=== PATIENT | male | born 1965 | race Caucasian/White ===

== ENCOUNTER 2023-08-23 06:14 | Inpatient (IN) | payer OTHER ==
[2023-08-23] MEDS ORDERED: PANTOPRAZOLE 40 MG/10 ML VIAL IVP STA (06:24)
[2023-08-23] MEDS ORDERED: droPERidol 5 MG/2 ML VIAL IVP ONE (06:24)
--- NOTE | 2023-08-23 06:26 | ED ---
Abdominal Pain HPI - General Source: patient, EMS, RN notes reviewed Mode of arrival: EMS Limitations: no limitations <Kevyn Doan - Last Filed: 08/23/23 06:25> <Pura Larkin - Last Filed: 09/04/23 00:38> - General Chief Complaint: Abdominal Pain Stated Complaint: Opiate detox Time Seen by Provider: 08/23/23 06:25 - History of Present Illness Initial Comments: 57-year-old male presents emergency Department chief complaint abdominal pain, nausea vomiting. Patient has been at [facility] for 3 days for opiate abuse. Patient states he was daily heroin user. Patient denies any alcohol abuse. Patient states she's been vomiting he states of recent that it seemed to change what looked to be bloody. He complains of epigastric discomfort. He denies any melanotic stools denies fevers or chills patient states he did get Zofran from EMS. (Kevyn Doan) 57-year-old male presents to the emergency department from [facility]. He has been there 3 days for heroin detox. He reports that he has had some abdominal pain throughout his stay there which has progressively gotten worse. He reports the pain is in his suprapubic region. States he has not had a bowel movement in 3 days. Normally goes daily. He started having some vomiting with some bloody flecks in it. He has been taking Motrin at the rehab facility. Denies history of ulcer. Denies alcohol use. He has never had any abdominal surgeries. Denies any fevers. Reports to some dysuria. He is not sexually active. Patient appears to be in significant pain upon my evaluation therefore the HPI is limited (Pura Larkin) - Related Data Home Medications Medication Instructions Recorded Confirmed Acetaminophen Tab [Tylenol] 650 mg PO QID PRN MDD 4 doses 08/23/23 08/23/23 Calcium/Mag/Zinc/D3 1 tab PO TID 08/23/23 08/23/23 Chlorpheniramine Maleate 4 mg PO Q4H PRN MDD 4 doses 08/23/23 08/23/23 [Chlor-Trimeton] Loperamide [Imodium] 2 - 4 mg PO QID PRN MDD 4 doses 08/23/23 08/23/23 Melatonin 5 mg PO HS 08/23/23 08/23/23 Multivitamins, Thera [Multivitamin 1 tab PO DAILY 08/23/23 08/23/23 (formulary)] Mylanta 30 ml PO Q4H PRN 08/23/23 08/23/23 Thiamine [Vitamin B-1] 100 mg PO DAILY PRN 08/23/23 08/23/23 Previous Rx's Medication Instructions Recorded Fluconazole [Diflucan] 200 mg PO DAILY #10 tablet 09/03/23 HYDROcodone/APAP 5-325MG [[place] 1 tab PO Q8HR PRN 2 Days #5 tab 09/03/23 5-325] Pantoprazole [Protonix] 40 mg PO DAILY #30 tab 09/03/23 amLODIPine [Norvasc] 5 mg PO DAILY #30 tab 09/03/23 cefUROXime axetiL [Ceftin] 500 mg PO BID 10 Days #20 tab 09/03/23 metroNIDAZOLE [Flagyl] 500 mg PO TID 10 Days #30 tab 09/03/23 Allergies Allergy/AdvReac Type Severity Reaction Status Date / Time Penicillins AdvReac Abdominal Verified 08/23/23 10:17 Pain Review of Systems ROS Other: All systems not noted in ROS Statement are negative. <Kevyn Doan - Last Filed: 08/23/23 06:25> ROS Other: All systems not noted in ROS Statement are negative. <Pura Larkin - Last Filed: 09/04/23 00:38> ROS Statement: Those systems with pertinent positive or pertinent negative responses have been documented in the HPI. Past Medical History Past Medical History: No Reported History History of Any Multi-Drug Resistant Organisms: None Reported Past Surgical History: Orthopedic Surgery Past Psychological History: No Psychological Hx Reported Smoking Status: Never smoker Past Alcohol Use History: Occasional Past Drug Use History: Heroin, Opiates <Kevyn Doan - Last Filed: 08/23/23 06:25> General Exam Limitations: no limitations General appearance: alert, in no apparent distress <Kevyn Doan - Last Filed: 08/23/23 06:25> General appearance: alert, in distress Head exam: Present: atraumatic, normocephalic, normal inspection Eye exam: Present: normal appearance, PERRL, EOMI. Absent: scleral icterus, conjunctival injection, periorbital swelling ENT exam: Present: normal exam, mucous membranes moist Neck exam: Present: normal inspection. Absent: tenderness, meningismus, lymphadenopathy Respiratory exam: Present: normal lung sounds bilaterally, other (Tachypneic). Absent: wheezes, rales, rhonchi, stridor Cardiovascular Exam: Present: regular rate, normal rhythm, normal heart sounds. Absent: systolic murmur, diastolic murmur, rubs, gallop, clicks GI/Abdominal exam: Present: tenderness (Generalized), guarding, normal bowel sounds. Absent: distended, rebound, rigid Extremities exam: Present: normal inspection, full ROM, normal capillary refill. Absent: tenderness, pedal edema, joint swelling, calf tenderness Back exam: Present: normal inspection Neurological exam: Present: alert, oriented X3, CN II-XII intact Psychiatric exam: Present: anxious Skin exam: Present: warm, dry, intact, normal color. Absent: rash <Pura Larkin - Last Filed: 09/04/23 00:38> - General Exam Comments Initial Comments: Visual Physical Exam Vital signs reviewed General: Well-appearing, nontoxic, no acute distress. Head: Normocephalic, atraumatic Eyes: PERRLA, EOMI ENT: Airway patent Chest: Nonlabored breathing Skin: No visual rash, normal skin tone Neuro: Alert and oriented 3 Musculoskeletal: No gross abnormalities (Kevyn Doan) Course Vital Signs 08/23/23 08/23/23 08/23/23 06:19 08:20 09:32 Temperature 97.8 F 98.8 F Pulse Rate 87 87 80 Respiratory 18 18 24 Rate Blood Pressure 144/88 174/77 178/108 O2 Sat by Pulse 100 99 99 Oximetry Medical Decision Making <Kevyn Doan - Last Filed: 08/23/23 06:25> - Lab Data Result diagrams: 09/03/23 07:14 09/03/23 07:14 <Pura Larkin - Last Filed: 09/04/23 00:38> - Medical Decision Making I performed a quick note portion of this chart signed Kevyn Archer PA-C) Was pt. sent in by a medical professional or institution (MIKAYLA Ruiz, WASHROOM OPERATOR, urgent care, hospital, or residential...) When possible be specific @ -[facility] Did you speak to anyone other than the patient for history (EMS, parent, family, police, friend...)? What history was obtained from this source @ -ems and [facility] paperwork Did you review nursing and triage notes (agree or disagree)? Why? @ -I reviewed and agree with nursing and triage notes Were old charts reviewed (outside hosp., previous admission, EMS record, old EKG, old radiological studies, urgent care reports/EKG's, residential records)? Report findings @ -No old charts were reviewed Differential Diagnosis (chest pain, altered mental status, abdominal pain women, abdominal pain men, vaginal bleeding, weakness, fever, dyspnea, syncope, headache, dizziness, GI bleed, back pain, seizure, CVA, palpatations, mental health, musculoskeletal)? @ -colitis, obstruction, pancreatitis, appendicitis, cholecystitis, bowel perforation, pud EKG interpreted by me (3pts min.). @ -none done X-rays interpreted by me (1pt min.). @ -None done CT interpreted by me (1pt min.). @ -yes and demonstrates free air U/S interpreted by me (1pt. min.). @ -None done What testing was considered but not performed or refused? (CT, X-rays, U/S, labs)? Why? @ -None What meds were considered but not given or refused? Why? @ -None Did you discuss the management of the patient with other professionals (professionals i.e. , PA, WASHROOM OPERATOR, lab, RT, psych nurse, licensed social worker, learning and development intern, teacher, department of natural resources officer, case monitor)? Give summary @ -Spoke with Dr. Panchal who will come to the emergency department to evaluate the patient Was smoking cessation discussed for >3mins.? @ -No Was critical care preformed (if so, how long)? @ -35 minutes Were there social determinants of health that impacted care today? How? (Homelessness, low income, unemployed, alcoholism, drug addiction, transportation, low edu. Level, literacy, decrease access to med. care, shelter, rehab)? @ -patient is at rehab Was there de-escalation of care discussed even if they declined (Discuss DNR or withdrawal of care, Hospice)? DNR status @ -No What co-morbidities impacted this encounter? (DM, HTN, Smoking, COPD, CAD, Cancer, CVA, ARF, Chemo, Hep., AIDS, mental health diagnosis, sleep apnea, mo rbid obesity)? @ -opiate abuse Was patient admitted / discharged? Hospital course, mention meds given and route, prescriptions, significant lab abnormalities, going to OR and other pertinent info. @ -Upon arrival patient did spend a portion of his time in the emergency department waiting room. Laboratory studies were obtained. He was given droperidol for pain. Patient is then placed in a room and I evaluate the patient. He does seem to be in a considerable amount pain and therefore 4 mg of morphine was ordered even though the patient has history of opiate abuse. He was also started on IV fluids. CT is performed which demonstrates free air. Patient reevaluated and had no relief with the morphine. I did give him 2 mg of Dilaudid. I called Dr. Panchal to inform him of the patient's findings. Patient will be taken to or at this time. He remains nothing by mouth. Patient taken to the OR with a guarded prognosis Undiagnosed new problem with uncertain prognosis? @ -yes Drug Therapy requiring intensive monitoring for toxicity (Heparin, Nitro, Insulin, Cardizem)? @ -No Were any procedures done? @ -No Diagnosis/symptom? @ -acute abd pain, acute pneumoperitoneum Acute, or Chronic, or Acute on Chronic? @ -acute Uncomplicated (without systemic symptoms) or Complicated (systemic symptoms)? @ -complicated Side effects of treatment? @ -No Exacerbation, Progression, or Severe Exacerbation? @ -No Poses a threat to life or bodily function? How? (Chest pain, [place], ND, pneumonia, PE, COPD, DKA, ARF, appy, cholecystitis, CVA, Diverticulitis, Homicidal, Suicidal, threat to staff... and all critical care pts) @ -yes, patient requires immediate surgery (Pura Larkin) - Lab Data Lab Results 08/23/23 08/23/23 08/23/23 Range/Units 06:42 06:42 06:42 WBC 18.4 H (3.8-10.6) k/uL RBC 5.14 (4.30-5.90) m/uL Hgb 15.6 (13.0-17.5) gm/dL Hct 46.3 (39.0-53.0) % MCV 90.1 (80.0-100.0) fL MCH 30.3 (25.0-35.0) pg MCHC 33.7 (31.0-37.0) g/dL RDW 13.5 (11.5-15.5) % Plt Count 289 (150-450) k/uL MPV 7.7 Neutrophils % 84 % Lymphocytes % 10 % Monocytes % 5 % Eosinophils % 1 % Basophils % 0 % Neutrophils # 15.5 H (1.3-7.7) k/uL Lymphocytes # 1.8 (1.0-4.8) k/uL Monocytes # 0.9 (0-1.0) k/uL Eosinophils # 0.2 (0-0.7) k/uL Basophils # 0.0 (0-0.2) k/uL PT 13.6 H (10.0-12.5) sec INR 1.3 H (<1.2) APTT 19.4 L (22.0-30.0) sec Sodium 133 L (137-145) mmol/L Potassium 3.8 (3.5-5.1) mmol/L Chloride 94 L (98-107) mmol/L Carbon Dioxide 18 L (22-30) mmol/L Anion Gap 21 mmol/L BUN 21 H (9-20) mg/dL Creatinine 0.96 (0.66-1.25) mg/dL Est GFR (CKD-EPI)AfAm >90 (>60 ml/min/1.73 sqM) Est GFR (CKD-EPI)NonAf 88 (>60 ml/min/1.73 sqM) Glucose 195 H (74-99) mg/dL Lactic Ac Sepsis Rflx Plasma Lactic Acid Eitan (0.7-2.0) mmol/L Calcium 9.5 (8.4-10.2) mg/dL Total Bilirubin 1.2 (0.2-1.3) mg/dL AST 39 (17-59) U/L ALT 40 (4-49) U/L Alkaline Phosphatase 60 (38-126) U/L Total Protein 7.6 (6.3-8.2) g/dL Albumin 4.6 (3.5-5.0) g/dL Lipase 56 (23-300) U/L Urine Color Urine Appearance (Clear) Urine pH (5.0-8.0) Ur Specific [place] (1.001-1.035) Urine Protein (Negative) Urine Glucose (UA) (Negative) Urine Ketones (Negative) Urine Blood (Negative) Urine Nitrite (Negative) Urine Bilirubin (Negative) Urine Urobilinogen (<2.0) mg/dL Ur Leukocyte Esterase (Negative) Urine RBC (0-5) /hpf Urine WBC (0-5) /hpf Ur Squamous Epith Cells (0-4) /hpf Urine Mucus (None) /hpf 08/23/23 08/23/23 08/23/23 Range/Units 06:42 07:22 08:33 WBC (3.8-10.6) k/uL RBC (4.30-5.90) m/uL Hgb (13.0-17.5) gm/dL Hct (39.0-53.0) % MCV (80.0-100.0) fL MCH (25.0-35.0) pg MCHC (31.0-37.0) g/dL RDW (11.5-15.5) % Plt Count (150-450) k/uL MPV Neutrophils % % Lymphocytes % % Monocytes % % Eosinophils % % Basophils % % Neutrophils # (1.3-7.7) k/uL Lymphocytes # (1.0-4.8) k/uL Monocytes # (0-1.0) k/uL Eosinophils # (0-0.7) k/uL Basophils # (0-0.2) k/uL PT (10.0-12.5) sec INR (<1.2) APTT (22.0-30.0) sec Sodium (137-145) mmol/L Potassium (3.5-5.1) mmol/L Chloride (98-107) mmol/L Carbon Dioxide (22-30) mmol/L Anion Gap mmol/L BUN (9-20) mg/dL Creatinine (0.66-1.25) mg/dL Est GFR (CKD-EPI)AfAm (>60 ml/min/1.73 sqM) Est GFR (CKD-EPI)NonAf (>60 ml/min/1.73 sqM) Glucose (74-99) mg/dL Lactic Ac Sepsis Rflx Y Plasma Lactic Acid Eitan 3.9 H* (0.7-2.0) mmol/L Calcium (8.4-10.2) mg/dL Total Bilirubin (0.2-1.3) mg/dL AST (17-59) U/L ALT (4-49) U/L Alkaline Phosphatase (38-126) U/L Total Protein (6.3-8.2) g/dL Albumin (3.5-5.0) g/dL Lipase (23-300) U/L Urine Color Yellow Urine Appearance Clear (Clear) Urine pH 6.0 (5.0-8.0) Ur Specific [place] 1.040 H (1.001-1.035) Urine Protein 3+ H (Negative) Urine Glucose (UA) Trace H (Negative) Urine Ketones 3+ H (Negative) Urine Blood Moderate H (Negative) Urine Nitrite Negative (Negative) Urine Bilirubin 1+ H (Negative) Urine Urobilinogen <2.0 (<2.0) mg/dL Ur Leukocyte Esterase Negative (Negative) Urine RBC 1 (0-5) /hpf Urine WBC 3 (0-5) /hpf Ur Squamous Epith Cells <1 (0-4) /hpf Urine Mucus Moderate H (None) /hpf Disposition <Kevyn Doan - Last Filed: 08/23/23 06:25> Is patient prescribed a controlled substance at d/c from ED?: No Time of Disposition: :31 Decision to Admit Reason: Admit from EC Decision Date: 08/23/23 Decision Time: 09: <Pura Larkin - Last Filed: 09/04/23 00:38> Clinical Impression: Abdominal pain, Pneumoperitoneum, Leukocytosis, Lactic acidosis Disposition: ADMITTED IP TO THIS HOSP Condition: Stable
[2023-08-23 07:02] LABS: Basophils % (A) 0 %; Eosinophils # (A) 0.2 k/uL (0-0.7); Eosinophils % (A) 1 %; HCT 46.3 % (39.0-53.0); HGB 15.6 gm/dL (13.0-17.5); Lymphocytes # (A) 1.8 k/uL (1.0-4.8); Lymphocytes % (A) 10 %; MCH 30.3 pg (25.0-35.0); MCHC 33.7 g/dL (31.0-37.0); MCV 90.1 fL (80.0-100.0); Mean Platelet Volume 7.7; Monocytes # (A) 0.9 k/uL (0-1.0); Monocytes % (A) 5 %; Neutrophils # (A) 15.5 k/uL (1.3-7.7); Neutrophils % (A) 84 %; Platelet Count 289 k/uL (150-450); RBC 5.14 m/uL (4.30-5.90); RDW 13.5 % (11.5-15.5); WBC 18.4 k/uL (3.8-10.6)
[2023-08-23 07:21] LABS: African American GFR (CKD) >90 (>60 ml/min/1.73 sqM); Albumin 4.6 g/dL (3.5-5.0); Anion Gap 21 mmol/L; Blood Urea Nitrogen 21 mg/dL (9-20); Calcium 9.5 mg/dL (8.4-10.2); Carbon Dioxide 18 mmol/L (22-30); Chloride 94 mmol/L (98-107); Glucose 195 mg/dL (74-99); Lipase 56 U/L (23-300); Non-African American GFR(CKD) 88 (>60 ml/min/1.73 sqM); Sodium 133 mmol/L (137-145); Total Bilirubin 1.2 mg/dL (0.2-1.3); Total Protein 7.6 g/dL (6.3-8.2)
[2023-08-23 07:26] LABS: ALT 40 U/L (4-49)
[2023-08-23 07:29] LABS: AST 39 U/L (17-59); Alkaline Phosphatase 60 U/L (38-126); Potassium 3.8 mmol/L (3.5-5.1)
[2023-08-23 07:37] LABS: INR 1.3 (<1.2); Prothrombin Time 13.6 sec (10.0-12.5)
[2023-08-23 07:46] LABS: Partial Thromboplastin Time 19.4 sec (22.0-30.0)
[2023-08-23] MEDS ORDERED: SODIUM CHLORIDE 0.9% 1,000 ML IV ONE ×2 (07:52→10:13)
[2023-08-23] MEDS ORDERED: SODIUM CHLORIDE 0.9% 500 ML 500 ML IV ONE ×2 (07:52→23:15)
[2023-08-23] MEDS ORDERED: MORPHINE SULFATE 4 MG/ML SYRINGE IVP STA (08:18)
[2023-08-23 09:10] LABS: Appearance,Urine Clear (Clear); Bilirubin,Urine 1+ (Negative); Blood,Urine Moderate (Negative); Color,Urine Yellow; Glucose,Urine (UA) Trace (Negative); Ketones,Urine 3+ (Negative); Leukocyte Esterase,Urine Negative (Negative); Mucus,Urine Moderate /hpf; Nitrite,Urine Negative (Negative); Protein,Urine 3+ (Negative); RBC,Urine 1 /hpf (0-5); Squamous Epithelial Cell,Urine <1 /hpf (0-4); Urobilinogen,Urine <2.0 mg/dL (<2.0); WBC,Urine 3 /hpf (0-5)
[2023-08-23] MEDS ORDERED: LEVOFLOXACIN 750MG-D5W PMX 750 MG in DEXTROSE/WATER 1 150ML.BAG IVPB STA (09:15)
[2023-08-23] MEDS ORDERED: metroNIDAZOLE-NS PMX 500 MG in SALINE 1 100ML.BAG IVPB STA (09:16)
[2023-08-23] MEDS ORDERED: HYDROmorphone 1 MG/ML 1 ML SYRINGE IVP STA ×2 (09:16→10:12)
--- NOTE | 2023-08-23 09:16 | CT ---
EXAMINATION TYPE: CT abdomen pelvis w con CT DLP: 963.1 mGycm, Automated exposure control for dose reduction was used. DATE OF EXAM: 08/23/2023 8:58 AM COMPARISON: None CLINICAL INDICATION:Male, 57 years old with history of pain; Abdominal pain , nausea and vomiting TECHNIQUE: Standard CT of the abdomen and pelvis following the administration of 100 cc of Isovue 3 00 IV contrast material. Coronal and sagittal reformats were performed. FINDINGS: LOWER CHEST: Unremarkable ABDOMEN LIVER: Unremarkable GALLBLADDER AND BILE DUCTS: Unremarkable. PANCREAS: Unremarkable. SPLEEN: Unremarkable. ADRENAL GLANDS: Unremarkable. KIDNEYS AND URETERS: No evidence of hydronephrosis or renal calculus. The kidneys enhance symmetrical ly. Right inferior pole 1.7 cm cyst. Contrast is demonstrated within both collecting systems on the d elayed phase. PELVIS BLADDER: Incompletely distended but grossly unremarkable. REPRODUCTIVE: Coarse calcifications of the prostate gland are identified. ABDOMEN & PELVIS STOMACH AND BOWEL: The appendix is within normal limits.Circumferential wall thickening identified in volving the duodenum and proximal small bowel within the left abdomen. No evidence of bowel obstructi on. PERITONEUM/retroperitoneum: Free air is identified primarily within the retroperitoneum. Small amount of free fluid throughout the abdomen and pelvis. VASCULATURE: No evidence of aortic aneurysm. Pelvic phleboliths. MUSCULOSKELETAL: No acute osseous abnormalities LYMPH NODES: No gross evidence for lymphadenopathy. SOFT TISSUE/ABDOMINAL WALL: Tiny fat filled umbilical hernia. IMPRESSION: 1. Pneumoretroperitoneum with suspected gastric or duodenal perforation. 2. Inflammatory changes identified involving the duodenum and proximal small bowel. 3. Small amount of ascites identified throughout abdomen and pelvis. Findings called to and discussed with Dr. Larkin at 9:13 AM on 08/23/2023.
[2023-08-23] MEDS ORDERED: NALOXONE 0.4 MG/ML 1 ML VIAL IV PRN (09:31)
[2023-08-23] MEDS ORDERED: ONDANSETRON 4 MG/2 ML VIAL IVP PRN (09:31)
[2023-08-23] MEDS: SODIUM CHLORIDE 0.9% 1,000 ML IV ONE ×2 (09:34→10:17)
--- NOTE | 2023-08-23 10:24 | P.GSHP ---
History of Present Illness H&P Date: 08/23/23 CHIEF COMPLAINT: Abdominal pain HISTORY OF PRESENT ILLNESS: This is a 57-year-old male who presented to the hospital with complaints of abdominal pain with nausea and vomiting that started yesterday. Patient reports taking Motrin daily for his back and foot pain. He denies any prior history of stomach ulcers. His emesis had been containing some flecks of blood. She denies being on any blood thinners. Denies any alcohol use. Denies any cardiac history. Patient has been at [facility] for heroin abuse for the past 3 days. The last time he used heroin was on Wednesday. Denies any prior abdominal surgeries. Computed tomography scan abdomen and pelvis had reported pneumoperitoneum with suspected gastric or duodenal perforation. Patient has been admitted to surgical service. Patient's BP has been elevated. PAST MEDICAL HISTORY: No reported history PAST SURGICAL HISTORY: Orthopedic surgery MEDICATIONS: See below ALLERGIES: See below SOCIAL HISTORY: Heroin abuse REVIEW OF SYSTEMS: CONSTITUTIONAL: Denies fever or chills. HEENT: Denies blurred vision, vision changes, or eye pain. Denies hemoptysis CARDIOVASCULAR: Denies chest pain or pressure. RESPIRATORY: No shortness of breath. GASTROINTESTINAL: See HPI for pertinent findings HEMATOLOGIC: Denies bleeding disorders. GENITOURINARY: Denies any blood in urine or increased urinary frequency. SKIN: Denies pruitis. Denies rash. PHYSICAL EXAM: VITAL SIGNS: Reviewed GENERAL: Well-developed in no acute distress. ABDOMEN: Soft. Nondistended. Painful palpation of suprapubic area. Guarding noted NEUROLOGIC: Alert and oriented. Cranial nerves II through XII grossly intact. LABORATORY DATA: WBC 18.4 Hgb 15.6 platelets 289 INR 1.3 Sodium 133 potassium 3.3 creatinine 0.96 Lactic acid is elevated at 3.9 LFTs normal lipase 56 IMAGING: Computed tomography scan abdomen and pelvis reports pneumoperitoneum with suspected gastric or duodenal perforation. Inflammatory changes identified involving the duodenum and proximal small bowel. Small amount of ascites identified throughout abdomen and pelvis. ASSESSMENT: 1. Pneumoperitoneum with suspected gastric or duodenal perforation noted on computed tomography scan 2. Abdominal pain 3. History of heroin abuse PLAN: -Patient scheduled for exploratory laparotomy today with Dr. alex -Keep patient nothing by mouth -Continue pain management -Continue IV fluids -Continue PPI twice a day -Continue antibiotics Physician Optical Glass Wet Inspector note has been reviewed by physician. Signing provider agrees with the documented findings, assessment, and plan of care. Past Medical History Past Medical History: No Reported History History of Any Multi-Drug Resistant Organisms: None Reported Past Surgical History: Orthopedic Surgery Past Psychological History: No Psychological Hx Reported Smoking Status: Never smoker Past Alcohol Use History: Occasional Past Drug Use History: Heroin, Opiates Medications and Allergies Allergies Allergy/AdvReac Type Severity Reaction Status Date / Time Penicillins AdvReac Abdominal Verified 08/23/23 10:17 Pain Surgical - Exam Vital Signs Temp Pulse Resp BP Pulse Ox 97.8 F 87 18 144/88 100 08/23/23 06:19 08/23/23 06:19 08/23/23 06:19 08/23/23 06:19 08/23/23 06:19 Results - Labs 08/23/23 06:42 08/23/23 06:42 Abnormal Lab Results - Last 24 Hours (Table) 08/23/23 08/23/23 08/23/23 Range/Units 06:42 06:42 06:42 WBC 18.4 H (3.8-10.6) k/uL Neutrophils # 15.5 H (1.3-7.7) k/uL PT 13.6 H (10.0-12.5) sec INR 1.3 H (<1.2) APTT 19.4 L (22.0-30.0) sec Sodium 133 L (137-145) mmol/L Chloride 94 L (98-107) mmol/L Carbon Dioxide 18 L (22-30) mmol/L BUN 21 H (9-20) mg/dL Glucose 195 H (74-99) mg/dL Plasma Lactic Acid Eitan (0.7-2.0) mmol/L Ur Specific [place] (1.001-1.035) Urine Protein (Negative) Urine Glucose (UA) (Negative) Urine Ketones (Negative) Urine Blood (Negative) Urine Bilirubin (Negative) Urine Mucus (None) /hpf 08/23/23 08/23/23 Range/Units 06:42 08:33 WBC (3.8-10.6) k/uL Neutrophils # (1.3-7.7) k/uL PT (10.0-12.5) sec INR (<1.2) APTT (22.0-30.0) sec Sodium (137-145) mmol/L Chloride (98-107) mmol/L Carbon Dioxide (22-30) mmol/L BUN (9-20) mg/dL Glucose (74-99) mg/dL Plasma Lactic Acid Eitan 3.9 H* (0.7-2.0) mmol/L Ur Specific [place] 1.040 H (1.001-1.035) Urine Protein 3+ H (Negative) Urine Glucose (UA) Trace H (Negative) Urine Ketones 3+ H (Negative) Urine Blood Moderate H (Negative) Urine Bilirubin 1+ H (Negative) Urine Mucus Moderate H (None) /hpf Diabetes panel 08/23/23 Range/Units 06:42 Sodium 133 L (137-145) mmol/L Potassium 3.8 (3.5-5.1) mmol/L Chloride 94 L (98-107) mmol/L Carbon Dioxide 18 L (22-30) mmol/L BUN 21 H (9-20) mg/dL Creatinine 0.96 (0.66-1.25) mg/dL Glucose 195 H (74-99) mg/dL Calcium 9.5 (8.4-10.2) mg/dL AST 39 (17-59) U/L ALT 40 (4-49) U/L Alkaline Phosphatase 60 (38-126) U/L Total Protein 7.6 (6.3-8.2) g/dL Albumin 4.6 (3.5-5.0) g/dL Calcium panel 08/23/23 Range/Units 06:42 Calcium 9.5 (8.4-10.2) mg/dL Albumin 4.6 (3.5-5.0) g/dL Pituitary panel 08/23/23 Range/Units 06:42 Sodium 133 L (137-145) mmol/L Potassium 3.8 (3.5-5.1) mmol/L Chloride 94 L (98-107) mmol/L Carbon Dioxide 18 L (22-30) mmol/L BUN 21 H (9-20) mg/dL Creatinine 0.96 (0.66-1.25) mg/dL Glucose 195 H (74-99) mg/dL Calcium 9.5 (8.4-10.2) mg/dL Adrenal panel 08/23/23 Range/Units 06:42 Sodium 133 L (137-145) mmol/L Potassium 3.8 (3.5-5.1) mmol/L Chloride 94 L (98-107) mmol/L Carbon Dioxide 18 L (22-30) mmol/L BUN 21 H (9-20) mg/dL Creatinine 0.96 (0.66-1.25) mg/dL Glucose 195 H (74-99) mg/dL Calcium 9.5 (8.4-10.2) mg/dL Total Bilirubin 1.2 (0.2-1.3) mg/dL AST 39 (17-59) U/L ALT 40 (4-49) U/L Alkaline Phosphatase 60 (38-126) U/L Total Protein 7.6 (6.3-8.2) g/dL Albumin 4.6 (3.5-5.0) g/dL
[2023-08-23] MEDS ORDERED: IV FLUID CONTINUATION 800 ML IV ONE (10:28)
[2023-08-23] MEDS ORDERED: fentaNYL (PF) 50 MCG/ML 2 ML AMP IVP ONE ×2 (10:36→11:04)
[2023-08-23] MEDS ORDERED: LACTATED RINGERS 1,000 ML IV ONE ×2 (11:06→12:52)
[2023-08-23] MEDS ORDERED: ESMOLOL 100 MG/10 ML VIAL ONE (11:30)
[2023-08-23] MEDS ORDERED: PROPOFOL 10 MG/ML 20 ML VIAL IV ONE (11:30)
[2023-08-23] MEDS ORDERED: fentaNYL (PF) 50 MCG/ML 2 ML AMP ONE (11:30)
[2023-08-23] MEDS ORDERED: LIDOCAINE 1% INJ 10MG/ML (20 ML MDV) ONE (11:30)
[2023-08-23] MEDS ORDERED: MIDAZOLAM 2 MG/2 ML VIAL ONE (11:30)
[2023-08-23] MEDS ORDERED: SUCCINYLCHOLINE CHLORIDE 200 MG/10 ML VIAL IV ONE (11:30)
[2023-08-23] MEDS ORDERED: ROCURONIUM 10 MG/ML (5 ML VIAL) IV ONE (11:30)
[2023-08-23] MEDS ORDERED: HYDROmorphone (PF) 1 MG/ML ONE (11:30)
--- NOTE | 2023-08-23 12:58 | P.OP ---
Date of Procedure: 08/23/23 Preoperative Diagnosis: Perforated viscus Postoperative Diagnosis: Perforated duodenal ulcer in the third portion of the duodenum with extensive right retroperitoneal inflammatory changes Procedure(s) Performed: Exploratory laparotomy Repair of duodenal ulcer with modified Jesús patch Anesthesia: LAURA Surgeon: Ventura Panchal Estimated Blood Loss (ml): 50 Pathology: none sent Condition: stable Disposition: ICU Description of Procedure: Patient's placed on the operating table in the supine position. He received general endotracheal tube anesthesia. His abdomen was prepped and draped in usual sterile fashion. The abdomen was entered through midline incision. Electrocautery was used to divide the abdominal wall. The peritoneal cavity was entered. There is a small amount of bilious fluid in the peritoneal cavity. The Bookwalter traction placed a wound. The abscess explored. There was a significant inflammatory response and bile staining along the right retroperitoneum. The bile staining was seen on the 11th of the cecum. The right colon was mobilized and then the duodenum was mobilized by using a [place] maneuver. The ulcer could be seen in the third portion of the duodenum. The ulcer opening was approximately 1.5 cm. The ulcer was repaired using a modified Jesús patch. The ulcer repair was performed using 3-0 GI silk suture. After the ulcer was closed. A piece of omentum was placed over top of the repair. The abdomen then irrigated with 4 L of normal saline. A GIOVANNA drain was placed along the right retroperitoneum this was brought out through a stab incision in the right upper quadrant. The fascia then closed loop #1 PDS suture. Skin was closed jesica.Prevena wound system was placed over top of the close skin. The patient was sent to the ICU intubated.
[2023-08-23 13:20] LABS: Glucose,Whole Blood 127 mg/dL (70-110)
[2023-08-23] MEDS: SODIUM CHLORIDE 0.9% 1,000 ML IV SCH ×3 (13:24→19:59)
[2023-08-23] MEDS: FLUCONAZOLE IN NACL,ISO-OSM 400 MG in SALINE 1 200ML.BAG IVPB SCH (13:28)
--- NOTE | 2023-08-23 13:53 | XR ---
EXAMINATION TYPE: XR chest 1V portable DATE OF EXAM: 08/23/2023 COMPARISON: NONE HISTORY: ET tube placement TECHNIQUE: Single frontal view of the chest is obtained. FINDINGS: There is no focal air space opacity, pleural effusion, or pneumothorax seen. The cardiac silhouette size is within normal limits. The osseous structures are intact. ET tube is approximatel y 5 cm above amber. NG tube is seen with the tip at the level of the gastric fundus. I cannot exclud e a small amount of pneumomediastinum. IMPRESSION: 1. ET tube 5 cm above amber. There is air seen in the upper mediastinum and overlying soft tissues o f the neck correlate for pneumomediastinum.
[2023-08-23 13:56] LABS: ABG Base Excess -5.3 mmol/L; ABG HCO3 21 mmol/L (21-25); ABG Oxygen Saturation 99.7 % (94-97); ABG PCO2 40 mmHg (35-45); ABG PH 7.32 (7.35-7.45); ABG PO2 >400 mmHg (83-108); ABG TCO2 22 mmol/L (19-24)
[2023-08-23] MEDS: fentaNYL (PF). 1,000 MCG in SODIUM CHLORIDE 0.9% 80 ML IV SCH ×2 (14:07→17:52)
[2023-08-23] MEDS: HYDROmorphone 1 MG/ML 1 ML SYRINGE IVP PRN ×3 (14:33→21:40)
[2023-08-23] MEDS: metroNIDAZOLE-NS PMX 500 MG in SALINE 1 100ML.BAG IVPB SCH ×2 (15:38→23:43)
--- NOTE | 2023-08-23 17:28 | P.CNPUL ---
History of Present Illness Consult date: 08/23/23 Requesting physician: Ventura Panchal Reason for consult: other (Ventilator/critical care management) Chief complaint: Abdominal pain, nausea, vomiting History of present illness: This is a 57-year-old male patient with a known history of daily heroin use who was in rehab for 3 days at [place] when he developed abdominal pain nausea and vomiting early this morning. He was having suprapubic pain and had not had any bowel movements. He noted some flecks of blood in his emesis. No previous history of ulcer. He had been taken Motrin. Denied any alcohol use. Computed tomography scan of the abdomen and pelvis did reveal pneumonia retroperitoneum with suspected gastric or duodenal perforation. Inflammatory changes identified involving the duodenum and proximal small bowel. Small amount of ascites identified through the abdomen and pelvis. He was taken urgently to the operating room and was found to have a perforated duodenal ulcer in the third portion of the duodenum with extensive right retroperitoneal inflammatory changes. He had repair of duodenal ulcer with modified Jesús patch. He was left intubated on mechanical ventilator and transferred to the intensive care u [facility] where he is seen today in consultation. Current ventilator settings are assist-control mode at a rate of 18, tidal volume 500, FiO2 40% and a PEEP of 5. He is sedated with propofol at 50 mcg/kg/m. Currently requiring fentanyl 1.5 mcg/kg per hour. He is also receiving Dilaudid intermittently. He's been initiated on Levaquin and Flagyl. He has normal saline running at 130 ML's per hour. Arterial blood gases on 100% FiO2 revealed a pO2 greater than 400, pCO2 of 40 and a pH of 7.32. White count 18.4. Hemoglobin 15.6. Platelets 289. Sodium 133. Potassium 3.8. Bicarb 18. BUN 21. Creatinine 0.96. Lactic acid 3.9. AST 39. ALT 40. Chest x-ray revealed endotracheal tube 5 cm above the amber. There is air seen in the upper mediastinum and overlying soft tissues of the neck correlate for pneumomediastinum. Review of Systems ROS unobtainable: due to endotracheal tube Past Medical History Past Medical History: No Reported History History of Any Multi-Drug Resistant Organisms: None Reported Past Surgical History: Orthopedic Surgery Past Psychological History: No Psychological Hx Reported Smoking Status: Never smoker Past Alcohol Use History: Occasional Past Drug Use History: Heroin, Opiates Medications and Allergies Home Medications Medication Instructions Recorded Confirmed Type Acetaminophen Tab [Tylenol] 650 mg PO QID PRN MDD 4 doses 08/23/23 08/23/23 History Calcium/Mag/Zinc/D3 1 tab PO TID 08/23/23 08/23/23 History Chlorpheniramine Maleate 4 mg PO Q4H PRN MDD 4 doses 08/23/23 08/23/23 History [Chlor-Trimeton] Ibuprofen [Motrin Ib] 600 mg PO Q6H PRN 08/23/23 08/23/23 History Loperamide [Imodium] 2 - 4 mg PO QID PRN MDD 4 doses 08/23/23 08/23/23 History Melatonin 5 mg PO HS 08/23/23 08/23/23 History Multivitamins, Thera [Multivitamin 1 tab PO DAILY 08/23/23 08/23/23 History (formulary)] Mylanta 30 ml PO Q4H PRN 08/23/23 08/23/23 History Thiamine [Vitamin B-1] 100 mg PO DAILY PRN 08/23/23 08/23/23 History cloNIDine HCL [Catapres] 0.1 - 0.3 mg PO Q4HR PRN 08/23/23 08/23/23 History cloNIDine HCL [Catapres] 0.1 mg PO Q4H PRN 08/23/23 08/23/23 History Allergies Allergy/AdvReac Type Severity Reaction Status Date / Time Penicillins AdvReac Abdominal Verified 08/23/23 10:17 Pain Physical Exam Vitals: Vital Signs Temp Pulse Pulse Resp BP BP BP 08/23/23 16:30 93 23 122/95 08/23/23 16:00 98.5 F 89 24 123/92 08/23/23 15:46 08/23/23 15:30 92 25 H 125/94 08/23/23 15:28 08/23/23 15:00 96 26 H 128/93 08/23/23 14:45 98 28 H 152/113 08/23/23 14:30 105 H 22 159/115 08/23/23 14:15 105 H 22 165/123 08/23/23 14:00 104 H 26 H 172/120 08/23/23 13:58 08/23/23 13:57 08/23/23 13:45 101 H 18 173/118 08/23/23 13:30 100 14 132/89 08/23/23 13:23 08/23/23 13:19 78 26 H 08/23/23 13:11 08/23/23 11:11 83 22 181/95 08/23/23 10:28 98.9 F 77 24 178/106 08/23/23 10:22 79 28 H 180/87 08/23/23 09:32 80 24 178/108 08/23/23 08:20 98.8 F 87 18 174/77 08/23/23 06:19 97.8 F 87 18 144/88 Pulse Ox FiO2 08/23/23 16:30 99 08/23/23 16:00 98 40 08/23/23 15:46 100 08/23/23 15:30 99 08/23/23 15:28 40 08/23/23 15:00 99 08/23/23 14:45 98 08/23/23 14:30 98 08/23/23 14:15 98 08/23/23 14:00 99 40 08/23/23 13:58 100 08/23/23 13:57 40 08/23/23 13:45 100 08/23/23 13:30 97 08/23/23 13:23 100 08/23/23 13:19 08/23/23 13:11 100 08/23/23 11:11 98 08/23/23 10:28 97 08/23/23 10:22 96 08/23/23 09:32 99 08/23/23 08:20 99 08/23/23 06:19 100 Intake and Output 08/23/23 08/23/23 08/23/23 06:59 14:59 22:59 Intake Total 2727.008 379.581 Output Total 570 235 Balance 2157.008 144.581 Intake: IV 2710 260 Sodium Chloride 0.9% 1, 260 260 000 ml @ 130 mls/hr IV . Q7H42M [facility] Rx#:[id number] Intake, IV Titration 17.008 119.581 Amount fentaNYL (PF). 1,000 mcg 7.222 38.514 In Sodium Chloride 0.9% 80 ml @ 0.5 MCG/KG/HR 4. 659 mls/hr IV .[id number] [facility] Rx#:[id number] propofoL 1,000 mg In 9.786 81.067 Empty Bag 1 bag @ 15 MCG/ KG/MIN 8.386 mls/hr IV . [id number] [facility] Rx#:[id number] Output: Drainage 140 170 Right Medial Abdomen 140 170 Urine 380 65 Estimated Blood Loss 50 Other: Voiding Method Indwelling Catheter Indwelling Catheter Weight 92.986 kg 93.18 kg GENERAL EXAM: Intubated, sedated 57-year-old male patient, comfortable in no apparent distress. HEAD: Normocephalic. EYES: Normal reaction of pupils, equal size. NOSE: Clear with pink turbinates. THROAT: No erythema or exudates. NECK: No masses, no JVD. CHEST: No chest wall deformity. LUNGS: Equal air entry with no crackles, wheeze, rhonchi or dullness. CVS: S1 and S2 normal with no audible murmur, regular rhythm. ABDOMEN: Abdominal Prevena wound VAC in place. GIOVANNA drain in place. SPINE: No scoliosis or deformity SKIN: No rashes CENTRAL NERVOUS SYSTEM: Sedated, tone is normal in all 4 extremities. EXTREMITIES: There is no peripheral edema. No clubbing, no cyanosis. Peripheral pulses are intact. Results - Laboratory Findings CBC and BMP: 08/23/23 06:42 08/23/23 06:42 ABG ABG pH 7.32 (7.35-7.45) L 08/23/23 13:54 ABG pCO2 40 mmHg (35-45) 08/23/23 13:54 ABG pO2 >400 mmHg (83-108) H 08/23/23 13:54 ABG O2 Saturation 99.7 % (94-97) H 08/23/23 13:54 PT/INR, D-dimer PT 13.6 sec (10.0-12.5) H 08/23/23 06:42 INR 1.3 (<1.2) H 08/23/23 06:42 Abnormal lab findings: Abnormal Labs 08/23/23 08/23/23 08/23/23 06:42 06:42 06:42 WBC 18.4 H Neutrophils # 15.5 H PT 13.6 H INR 1.3 H APTT 19.4 L ABG pH ABG pO2 ABG O2 Saturation Sodium 133 L Chloride 94 L Carbon Dioxide 18 L BUN 21 H Glucose 195 H POC Glucose (mg/dL) Plasma Lactic Acid [place] Ur Specific [place] Urine Protein Urine Glucose (UA) Urine Ketones Urine Blood Urine Bilirubin Urine Mucus 08/23/23 08/23/23 08/23/23 06:42 08:33 13:17 WBC Neutrophils # PT INR APTT ABG pH ABG pO2 ABG O2 Saturation Sodium Chloride Carbon Dioxide BUN Glucose POC Glucose (mg/dL) 127 H Plasma Lactic Acid [place] 3.9 H* Ur Specific [place] 1.040 H Urine Protein 3+ H Urine Glucose (UA) Trace H Urine Ketones 3+ H Urine Blood Moderate H Urine Bilirubin 1+ H Urine Mucus Moderate H 08/23/23 13:54 WBC Neutrophils # PT INR APTT ABG pH 7.32 L ABG pO2 >400 H ABG O2 Saturation 99.7 H Sodium Chloride Carbon Dioxide BUN Glucose POC Glucose (mg/dL) Plasma Lactic Acid [place] Ur Specific [place] Urine Protein Urine Glucose (UA) Urine Ketones Urine Blood Urine Bilirubin Urine Mucus - Diagnostic Findings Chest x-ray: image reviewed Assessment and Plan Assessment: Acute abdominal pain secondary to perforated duodenal ulcer in the third portion of duodenum with extensive right retroperitoneal inflammatory changes. Status post exploratory laparotomy with repair of duodenal ulcer with modified Jesús patch. Postoperative day #0 Acute hypoxic respiratory failure secondary to above, currently recovering on the mechanical ventilator, expected Daily heroin abuse, currently residing at [facility] History of opioid abuse Plan: Patient was seen and evaluated Chest x-ray, ABGs, labs and medications reviewed Continue Flagyl and Levaquin Titrate the sedation as tolerated Plan for possible extubation in the a.m. We will continue to follow and make further recommendations based on his clinical status I have personally seen and examined the patient, performed the documentation and the assessment and plan as written. Number of minutes spent on the visit: 20.
[2023-08-23] MEDS: PANTOPRAZOLE 40 MG/10 ML VIAL IVP SCH (19:59)
[2023-08-23] MEDS: CHLORHEXIDINE GLUCONATE 15 ML CUP MUCOUS MEM SCH (19:59)
[2023-08-23 23:54] LABS: Glucose,Whole Blood 93 mg/dL (70-110)
[2023-08-24] MEDS: HYDROmorphone 1 MG/ML 1 ML SYRINGE IVP PRN ×3 (00:20→18:37)
[2023-08-24] MEDS: fentaNYL (PF). 1,000 MCG in SODIUM CHLORIDE 0.9% 80 ML IV SCH ×2 (01:13→08:11)
--- NOTE | 2023-08-24 01:25 | XR ---
EXAM: XR Chest, 1 View CLINICAL HISTORY: ITS.REASON XR Reason: Tube placement TECHNIQUE: Frontal view of the chest. COMPARISON: No relevant prior studies available. IMPRESSION: Feeding tube in good position
[2023-08-24 04:13] LABS: African American GFR (CKD) 68 (>60 ml/min/1.73 sqM); Anion Gap 5 mmol/L; Blood Urea Nitrogen 27 mg/dL (9-20); Calcium 7.1 mg/dL (8.4-10.2); Carbon Dioxide 18 mmol/L (22-30); Chloride 108 mmol/L (98-107); Glucose 107 mg/dL (74-99); Non-African American GFR(CKD) 59 (>60 ml/min/1.73 sqM); Potassium 4.2 mmol/L (3.5-5.1); Sodium 131 mmol/L (137-145)
[2023-08-24 05:08] LABS: HCT 46.7 % (39.0-53.0); HGB 15.1 gm/dL (13.0-17.5); MCH 29.8 pg (25.0-35.0); MCHC 32.5 g/dL (31.0-37.0); MCV 91.7 fL (80.0-100.0); Mean Platelet Volume 8.6; Platelet Count 164 k/uL (150-450); RBC 5.09 m/uL (4.30-5.90); RDW 14.1 % (11.5-15.5); WBC 6.7 k/uL (3.8-10.6)
[2023-08-24 05:45] LABS: ABG Base Excess -5.2 mmol/L; ABG HCO3 20 mmol/L (21-25); ABG Oxygen Saturation 98.8 % (94-97); ABG PCO2 33 mmHg (35-45); ABG PH 7.39 (7.35-7.45); ABG PO2 147 mmHg (83-108); ABG TCO2 21 mmol/L (19-24); Allen Test Performed? Yes
[2023-08-24 06:20] LABS: Glucose,Whole Blood 98 mg/dL (70-110)
[2023-08-24 07:01] LABS: Band Neutrophils % 18 %; Lymphocytes # (M) 1.94 k/uL (1.0-4.8); Monocytes # (M) 0.27 k/uL (0-1.0); Neutrophils % (M) 51 %; Nucleated Red Blood Cells 0 /100 WBC (0-0); Total Cells Counted 200
[2023-08-24 07:04] LABS: Anisocytosis (M) Present
[2023-08-24 07:05] LABS: Poikilocytosis (M) Present
[2023-08-24] MEDS: PANTOPRAZOLE 40 MG/10 ML VIAL IVP SCH ×2 (08:21→20:59)
[2023-08-24] MEDS: metroNIDAZOLE-NS PMX 500 MG in SALINE 1 100ML.BAG IVPB SCH ×2 (08:26→15:59)
[2023-08-24] MEDS: SODIUM CHLORIDE 0.9% 1,000 ML IV SCH ×3 (08:30→23:15)
[2023-08-24] MEDS: CHLORHEXIDINE GLUCONATE 15 ML CUP MUCOUS MEM SCH (08:32)
[2023-08-24] MEDS ORDERED: SODIUM CHLORIDE 0.9% 500 ML 500 ML IV ONE (08:43)
[2023-08-24] MEDS: FLUCONAZOLE IN NACL,ISO-OSM 400 MG in SALINE 1 200ML.BAG IVPB SCH (09:32)
[2023-08-24] MEDS: LEVOFLOXACIN 500MG-D5W PMX 500 MG in DEXTROSE/WATER 1 100ML.BAG IVPB SCH (10:59)
--- NOTE | 2023-08-24 11:24 | P.PN ---
Subjective Progress Note Date: 08/24/23 Principal diagnosis: Acute abdominal pain secondary to perforated duodenal ulcer in the third portion of duodenum with extensive right retroperitoneal inflammatory changes. Status post exploratory laparotomy with repair of duodenal ulcer with modified Jesús patch. Postoperative day #1 This is a 57-year-old male patient with a known history of daily heroin use who was in rehab for 3 days at [place] when he developed abdominal pain nausea and vomiting early this morning. He was having suprapubic pain and had not had any bowel movements. He noted some flecks of blood in his emesis. No previous history of ulcer. He had been taken Motrin. Denied any alcohol use. Computed tomography scan of the abdomen and pelvis did reveal pneumonia retroperitoneum with suspected gastric or duodenal perforation. Inflammatory changes identified involving the duodenum and proximal small bowel. Small amount of ascites identified through the abdomen and pelvis. He was taken urgently to the operating room and was found to have a perforated duodenal ulcer in the third po rtion of the duodenum with extensive right retroperitoneal inflammatory changes. He had repair of duodenal ulcer with modified Jesús patch. He was left intubated on mechanical ventilator and transferred to the intensive care unit where he is seen today in consultation. Current ventilator settings are assist- control mode at a rate of 18, tidal volume 500, FiO2 40% and a PEEP of 5. He is sedated with propofol at 50 mcg/kg/m. Currently requiring fentanyl 1.5 mcg/kg per hour. He is also receiving Dilaudid intermittently. He's been initiated on Levaquin and Flagyl. He has normal saline running at 130 ML's per hour. Arterial blood gases on 100% FiO2 revealed a pO2 greater than 400, pCO2 of 40 and a pH of 7.32. White count 18.4. Hemoglobin 15.6. Platelets 289. Sodium 133. Potassium 3.8. Bicarb 18. BUN 21. Creatinine 0.96. Lactic acid 3.9. AST 39. ALT 40. Chest x-ray revealed endotracheal tube 5 cm above the amber. There is air seen in the upper mediastinum and overlying soft tissues of the neck correlate for pneumomediastinum. Patient was reevaluated today on 08/24/2023 patient remains intubated and mechanically ventilated. He is on assist control rate of 18 tidal volume 500 FiO2 40% PEEP of 5 ABG showed a pO2 of 147 pCO2 33 pH of 7.39. Patient is on IV fluid 0.9 normal saline at 13 0 mL per hour propofol at 30 mcg/kg/m and fentanyl 1.5 mcg/kg per hour. Patient is not requiring pressors at this point, he was hypotensive yesterday, received over 3 L of fluid boluses, urine output seems to be improving, and hemodynamically the patient didn't improve. We will give the patient more fluid boluses this morning to improve his urine output otherwise may have to challenge with a diuretic. Chest x-ray today was reviewed, seems to be unremarkable. Labs were all reviewed WBC 6.7 hemoglobin 15.1 sodium is 131 potassium 4.2, BUN is 27 creatinine 1.34. Objective - Vital Signs Vital signs: Vital Signs Temp 99.3 F 08/24/23 08:00 Pulse 74 08/24/23 11:00 Resp 16 08/24/23 11:00 BP 146/86 08/24/23 11:00 Pulse Ox 98 08/24/23 11:00 FiO2 40 08/24/23 08:52 Intake & Output 08/23/23 08/24/23 08/24/23 18:59 06:59 18:59 Intake Total 3303.445 2538.831 1754.129 Output Total 805 975 240 Balance 2498.445 8248.582 1413.129 Weight 93.18 kg 97.8 kg Intake: IV 3100 2160 1550 Fluconazole in NaCl,Iso- 200 Osm 400 mg In Saline 1 200ml.bag @ 100 mls/hr IVPB DAILY [facility] Rx#: [id number] Levofloxacin 500Mg-D5w 100 Pmx 500 mg In Dextrose/ Water 1 100ml.bag @ 100 mls/hr IVPB Q24H [facility] Rx#: [id number] Sodium Chloride 0.9% 1, 650 1560 650 000 ml @ 130 mls/hr IV . Q7H42M [facility] Rx#:[id number] Sodium Chloride 0.9% 500 500 ml 500 ml @ 999 mls/hr IV .Q31M [facility] Rx#:[id number] Sodium Chloride 0.9% 500 500 ml 500 ml @ 999 mls/hr IV .Q31M [facility] Rx#:[id number] metroNIDAZOLE-NS PMX 500 100 100 mg In Saline 1 100ml.bag @ 100 mls/hr IVPB ONCE [facility] Rx#:[id number] Intake, IV Titration 203.445 378.831 204.129 Amount fentaNYL (PF). 1,000 mcg 58.082 100 104.129 In Sodium Chloride 0.9% 80 ml @ 0.5 MCG/KG/HR 4. 659 mls/hr IV .[id number] [facility] Rx#:[id number] propofoL 1,000 mg In 145.363 278.831 100 Empty Bag 1 bag @ 15 MCG/ KG/MIN 8.386 mls/hr IV . [id number] [facility] Rx#:[id number] Output: Gastric Drainage 220 Drainage 310 370 110 Right Medial Abdomen 310 370 110 Urine 445 385 130 Estimated Blood Loss 50 Other: Voiding Method Indwelling Catheter Indwelling Catheter - Exam Physical Exam: Revealed a 67-year-old white male sedated, on propofol, in no distress patient is also on fentanyl. Head: Atraumatic, normocephalic. HEENT:[Neck is supple.] [No neck masses.] [No thyromegaly.] [No JVD.] Endotracheal tube and orogastric tube are intact. Chest: [Clear throughout, no crackles, no rhonchi, no wheezes.] Cardiac Exam: [Normal S1 and S2, no S3 gallop, no murmur.] Abdomen: [Postsurgical. Soft, nontender, no megaly, no rebound, no guarding, no bowel sounds. Extremities: [No clubbing, no edema, no cyanosis.] Neurological Exam: [No focal neurologic deficit.] Patient is arousable, seems to be calm, follows simple instructions. Psychiatric: Normal mood affect and normal mental status examination. Skin: No rashes. - Labs CBC & Chem 7: 08/24/23 03:45 08/24/23 03:44 Labs: Abnormal Lab Results - Last 24 Hours (Table) 08/23/23 08/23/23 08/24/23 Range/Units 13:17 13:54 03:44 ABG pH 7.32 L (7.35-7.45) ABG pCO2 (35-45) mmHg ABG pO2 >400 H (83-108) mmHg ABG HCO3 (21-25) mmol/L ABG O2 Saturation 99.7 H (94-97) % Sodium 131 L (137-145) mmol/L Chloride 108 H (98-107) mmol/L Carbon Dioxide 18 L (22-30) mmol/L BUN 27 H (9-20) mg/dL Creatinine 1.34 H (0.66-1.25) mg/dL Glucose 107 H (74-99) mg/dL POC Glucose (mg/dL) 127 H (70-110) mg/dL Calcium 7.1 L (8.4-10.2) mg/dL 08/24/23 Range/Units 05:41 ABG pH (7.35-7.45) ABG pCO2 33 L (35-45) mmHg ABG pO2 147 H (83-108) mmHg ABG HCO3 20 L (21-25) mmol/L ABG O2 Saturation 98.8 H (94-97) % Sodium (137-145) mmol/L Chloride (98-107) mmol/L Carbon Dioxide (22-30) mmol/L BUN (9-20) mg/dL Creatinine (0.66-1.25) mg/dL Glucose (74-99) mg/dL POC Glucose (mg/dL) (70-110) mg/dL Calcium (8.4-10.2) mg/dL Microbiology - Last 24 Hours (Table) 08/23/23 19:55 Gram Stain - Preliminary Sputum Assessment and Plan Assessment: Impression: Acute abdominal pain secondary to perforated duodenal ulcer in the third portion of duodenum with extensive right retroperitoneal inflammatory changes. Status p ost exploratory laparotomy with repair of duodenal ulcer with modified Jesús patch. Postoperative day #1 Daily heroin abuse, currently residing at [facility] History of opioid abuse Recommendation: Reviewed patient's labs today. Reviewed patient's chest x-ray today. Reviewed ABG. Surgery to address his orogastric tube if extubated and orogastric tube discontinued. Reviewed all the medications on this patient and recommended that we hold propofol and hold fentanyl. If the patient remains calm, will transition the patient to pressure support and CPAP. Could consider ABG on pressure support and CPAP or depending on the patient's overall clinical response may consider extubating the patient from pressure support of 8 and CPAP. In the meantime the patient will be given more fluids another 500 mL bolus of point tenderness saline was ordered Continue to monitor his urine output and his hemodynamics Considering the patient is known to have heroin abuse, may have to be cautious after extubation. May need to have significant amount of sedation and possibly narcotics for pain control and avoid opioid withdrawal Patient remains critically ill. We will continue to follow. Critical care time is over 30 Time with Patient: Greater than 30
--- NOTE | 2023-08-24 13:34 | P.PN ---
Subjective Progress Note Date: 08/24/23 CHIEF COMPLAINT: Perforated duodenal ulcer HISTORY OF PRESENT ILLNESS: Patient is currently in the ICU. He was extubated this morning. He is status post postop day #1 exploratory laparotomy and repair of duodenal ulcer with modified Jesús patch. Patient reports his pain is controlled. He denies any nausea or vomiting. No flatus. GIOVANNA drain with 110 ml serobilious output this morning. Afebrile. WBC 18.4 down to 6.7 Hgb 15.1 creatinine 1.34. Urine output has been marginal. Patient receiving another 500 mL fluid bolus this morning. PHYSICAL EXAM: VITAL SIGNS: Reviewed. GENERAL: Well-developed in no acute distress. HEENT: No sclera icterus. Extraocular movements grossly intact. Moist buccal mucosa. Head is atraumatic, normocephalic. ABDOMEN: Soft. Mildly distended. Tender at incision site. Patient has intact prevana wound VAC in place. GIOVANNA drain with serobilious output NEUROLOGIC: Alert and oriented. Cranial nerves II through XII grossly intact. ASSESSMENT: 1. Perforated duodenal ulcer in the third portion of the duodenum with extensive right retroperitoneal inflammatory changes status post Exploratory laparotomy and Repair of duodenal ulcer with modified Jesús patch 2. Heroin abuse PLAN: -Consult dietitian to initiate TPN for nutrition support -Order PICC line for TPN -Keep patient nothing by mouth -Incentive spirometer ordered -Continue IV Protonix -Continue antibiotics -Continue IV fluids -Continue pain management -DVT prophylaxis subcu heparin Physician Operations Support Analyst note has been reviewed by physician. Signing provider agrees with the documented findings, assessment, and plan of care. Objective - Vital Signs Vital signs: Vital Signs Temp 99.3 F 08/24/23 08:00 Pulse 74 08/24/23 11:00 Resp 16 08/24/23 11:00 BP 146/86 08/24/23 11:00 Pulse Ox 98 08/24/23 11:00 FiO2 40 08/24/23 08:52 Intake & Output 08/23/23 08/24/23 08/24/23 18:59 06:59 18:59 Intake Total 3303.445 2538.831 1754.129 Output Total 805 975 240 Balance 2498.445 7484.988 1980.129 Weight 93.18 kg 97.8 kg Intake: IV 3100 2160 1550 Fluconazole in NaCl,Iso- 200 Osm 400 mg In Saline 1 200ml.bag @ 100 mls/hr IVPB DAILY [facility] Rx#: [id number] Levofloxacin 500Mg-D5w 100 Pmx 500 mg In Dextrose/ Water 1 100ml.bag @ 100 mls/hr IVPB Q24H [facility] Rx#: [id number] Sodium Chloride 0.9% 1, 650 1560 650 000 ml @ 130 mls/hr IV . Q7H42M [facility] Rx#:[id number] Sodium Chloride 0.9% 500 500 ml 500 ml @ 999 mls/hr IV .Q31M [facility] Rx#:[id number] Sodium Chloride 0.9% 500 500 ml 500 ml @ 999 mls/hr IV .Q31M [facility] Rx#:[id number] metroNIDAZOLE-NS PMX 500 100 100 mg In Saline 1 100ml.bag @ 100 mls/hr IVPB ONCE [facility] Rx#:[id number] Intake, IV Titration 203.445 378.831 204.129 Amount fentaNYL (PF). 1,000 mcg 58.082 100 104.129 In Sodium Chloride 0.9% 80 ml @ 0.5 MCG/KG/HR 4. 659 mls/hr IV .[id number] [facility] Rx#:[id number] propofoL 1,000 mg In 145.363 278.831 100 Empty Bag 1 bag @ 15 MCG/ KG/MIN 8.386 mls/hr IV . [id number] [facility] Rx#:[id number] Output: Gastric Drainage 220 Drainage 310 370 110 Right Medial Abdomen 310 370 110 Urine 445 385 130 Estimated Blood Loss 50 Other: Voiding Method Indwelling Catheter Indwelling Catheter - Labs CBC & Chem 7: 08/24/23 03:45 08/24/23 03:44 Labs: Abnormal Lab Results - Last 24 Hours (Table) 08/23/23 08/23/23 08/24/23 Range/Units 13:17 13:54 03:44 ABG pH 7.32 L (7.35-7.45) ABG pCO2 (35-45) mmHg ABG pO2 >400 H (83-108) mmHg ABG HCO3 (21-25) mmol/L ABG O2 Saturation 99.7 H (94-97) % Sodium 131 L (137-145) mmol/L Chloride 108 H (98-107) mmol/L Carbon Dioxide 18 L (22-30) mmol/L BUN 27 H (9-20) mg/dL Creatinine 1.34 H (0.66-1.25) mg/dL Glucose 107 H (74-99) mg/dL POC Glucose (mg/dL) 127 H (70-110) mg/dL Calcium 7.1 L (8.4-10.2) mg/dL 08/24/23 Range/Units 05:41 ABG pH (7.35-7.45) ABG pCO2 33 L (35-45) mmHg ABG pO2 147 H (83-108) mmHg ABG HCO3 20 L (21-25) mmol/L ABG O2 Saturation 98.8 H (94-97) % Sodium (137-145) mmol/L Chloride (98-107) mmol/L Carbon Dioxide (22-30) mmol/L BUN (9-20) mg/dL Creatinine (0.66-1.25) mg/dL Glucose (74-99) mg/dL POC Glucose (mg/dL) (70-110) mg/dL Calcium (8.4-10.2) mg/dL Microbiology - Last 24 Hours (Table) 08/23/23 19:55 Gram Stain - Preliminary Sputum
--- NOTE | 2023-08-24 15:12 | IR ---
PICC LINE PLACEMENT: HISTORY: Infection requiring long-term antibiotic therapy PROCEDURE: Ultrasound guidance of PICC line placement. CINETECHNICIAN: Dr. Whitley. COMPLICATIONS: None ANESTHESIA: 1. 1% Lidocaine locally. FINDINGS/TECHNIQUE: The procedure was explained to the patient. The risks, complications, benefits and alternatives were discussed and any questions were answered. Informed consent was obtained. The patient was placed supine on the fluoroscopic table and prepped and draped in the usual sterile [facility] ion. Utilizing a 21 gauge needle and sonographic guidance, access in the right brachial vein was ac hieved and there is placement of a 0.018 guidewire. The vein is patent. A 5-F. sheath was placed ov er the guidewire. The guidewire and dilator were removed and a 5-F. Double lumen PICC line was place d through the sheath with the chest x-ray confirming the tip at the level of the SVC. The sheath was removed, the catheter was flushed and sutured into position. The patient was stable throughout the procedure and remained stable upon discharge from the Department of Radiology. The vein puncture was patent under ultrasound. A pretty scale image was obtained to document patency of the vein punctured. All elements of the maximal barrier technique were utilized. IMPRESSION: 1. Successful PICC line placement under ultrasound performed bedside within the ICU.
--- NOTE | 2023-08-24 15:34 | XR ---
EXAMINATION TYPE: XR chest 1V portable DATE OF EXAM: 08/24/2023 COMPARISON: 08/24/2023 INDICATION: PICC line placement TECHNIQUE: Single frontal view of the chest is obtained. FINDINGS: The heart size is normal. The pulmonary vasculature is normal. The lungs are clear. PICC line enters on the right with the tip in the distal superior vena cava region. IMPRESSION: 1. No acute pulmonary process. 2. PICC line enters on the right with the tip in the distal superior vena cava region.
[2023-08-24 17:04] LABS: Albumin 2.3 g/dL (3.5-5.0); Magnesium 1.5 mg/dL (1.6-2.3); Phosphorus 3.3 mg/dL (2.5-4.5)
[2023-08-24] MEDS ORDERED: DEXTROSE 50% SYRINGE 50 ML IVP PRN ×2 (18:29)
[2023-08-24] MEDS ORDERED: MVI, ADULT NO.4 WITH VIT K 10 ML, TRACE (CONC-1ML/DOSE) 1 ML in AMINO ACID 5%-D20W+LYTE... IV SCH ×3 (18:30)
[2023-08-24] MEDS: HEPARIN SODIUM,PORCINE 5,000 UNIT/ML 1 ML VIAL SQ SCH (20:59)
[2023-08-25 00:11] LABS: Glucose,Whole Blood 130 mg/dL (70-110)
[2023-08-25] MEDS: INSULIN ASPART (NovoLOG) 100 UNIT/ML VIAL SQ SCH ×4 (00:14→18:31)
[2023-08-25] MEDS: metroNIDAZOLE-NS PMX 500 MG in SALINE 1 100ML.BAG IVPB SCH ×3 (00:16→16:10)
[2023-08-25 04:22] LABS: Triglycerides 95.3 mg/dL (0.00-149.00)
[2023-08-25 06:13] LABS: Glucose,Whole Blood 127 mg/dL (70-110)
[2023-08-25 06:13] LABS: Basophils % (A) 0 %; Eosinophils % (A) 1 %; HCT 35.8 % (39.0-53.0); Lymphocytes # (A) 0.6 k/uL (1.0-4.8); Lymphocytes % (A) 9 %; MCH 30.9 pg (25.0-35.0); MCHC 33.6 g/dL (31.0-37.0); Mean Platelet Volume 8.8; Monocytes # (A) 0.2 k/uL (0-1.0); Monocytes % (A) 3 %; Neutrophils # (A) 5.6 k/uL (1.3-7.7); Neutrophils % (A) 86 %; Platelet Count 167 k/uL (150-450); RBC 3.89 m/uL (4.30-5.90); WBC 6.5 k/uL (3.8-10.6)
[2023-08-25 06:18] LABS: Ionized Calcium 4.5 mg/dL (4.5-5.3)
[2023-08-25 06:30] LABS: African American GFR (CKD) >90 (>60 ml/min/1.73 sqM); Anion Gap 4 mmol/L; Blood Urea Nitrogen 21 mg/dL (9-20); Calcium 7.3 mg/dL (8.4-10.2); Carbon Dioxide 19 mmol/L (22-30); Chloride 111 mmol/L (98-107); Glucose 125 mg/dL (74-99); Magnesium 1.8 mg/dL (1.6-2.3); Non-African American GFR(CKD) >90 (>60 ml/min/1.73 sqM); Phosphorus 2.1 mg/dL (2.5-4.5); Potassium 3.8 mmol/L (3.5-5.1); Sodium 134 mmol/L (137-145)
[2023-08-25] MEDS: SODIUM CHLORIDE 0.9% 1,000 ML IV SCH ×2 (07:04→18:30)
[2023-08-25] MEDS: HEPARIN SODIUM,PORCINE 5,000 UNIT/ML 1 ML VIAL SQ SCH ×2 (08:53→21:18)
[2023-08-25] MEDS: FLUCONAZOLE IN NACL,ISO-OSM 400 MG in SALINE 1 200ML.BAG IVPB SCH (08:54)
[2023-08-25] MEDS: PANTOPRAZOLE 40 MG/10 ML VIAL IVP SCH ×2 (08:55→21:19)
[2023-08-25] MEDS: LEVOFLOXACIN 500MG-D5W PMX 500 MG in DEXTROSE/WATER 1 100ML.BAG IVPB SCH (10:29)
[2023-08-25] MEDS ORDERED: Potassium Replacement Protocol 1 EACH MISC MISCELLANE PRN ×2 (10:52→16:54)
--- NOTE | 2023-08-25 10:59 | P.PN ---
Subjective Progress Note Date: 08/25/23 Principal diagnosis: Acute abdominal pain secondary to perforated duodenal ulcer in the third portion of duodenum with extensive right retroperitoneal inflammatory changes. Status post exploratory laparotomy with repair of duodenal ulcer with modified Jesús patch. Postoperative day #2 This is a 57-year-old male patient with a known history of daily heroin use who was in rehab for 3 days at [place] when he developed abdominal pain nausea and vomiting early this morning. He was having suprapubic pain and had not had any bowel movements. He noted some flecks of blood in his emesis. No previous history of ulcer. He had been taken Motrin. Denied any alcohol use. Computed tomography scan of the abdomen and pelvis did reveal pneumonia retroperitoneum with suspected gastric or duodenal perforation. Inflammatory changes identified involving the duodenum and proximal small bowel. Small amount of ascites identified through the abdomen and pelvis. He was taken urgently to the operating room and was found to have a perforated duodenal ulcer in the third po rtion of the duodenum with extensive right retroperitoneal inflammatory changes. He had repair of duodenal ulcer with modified Jesús patch. He was left intubated on mechanical ventilator and transferred to the intensive care unit where he is seen today in consultation. Current ventilator settings are assist- control mode at a rate of 18, tidal volume 500, FiO2 40% and a PEEP of 5. He is sedated with propofol at 50 mcg/kg/m. Currently requiring fentanyl 1.5 mcg/kg per hour. He is also receiving Dilaudid intermittently. He's been initiated on Levaquin and Flagyl. He has normal saline running at 130 ML's per hour. Arterial blood gases on 100% FiO2 revealed a pO2 greater than 400, pCO2 of 40 and a pH of 7.32. White count 18.4. Hemoglobin 15.6. Platelets 289. Sodium 133. Potassium 3.8. Bicarb 18. BUN 21. Creatinine 0.96. Lactic acid 3.9. AST 39. ALT 40. Chest x-ray revealed endotracheal tube 5 cm above the amber. There is air seen in the upper mediastinum and overlying soft tissues of the neck correlate for pneumomediastinum. Patient was reevaluated today on 08/24/2023 patient remains intubated and mechanically ventilated. He is on assist control rate of 18 tidal volume 500 FiO2 40% PEEP of 5 ABG showed a pO2 of 147 pCO2 33 pH of 7.39. Patient is on IV fluid 0.9 normal saline at 13 0 mL per hour propofol at 30 mcg/kg/m and fentanyl 1.5 mcg/kg per hour. Patient is not requiring pressors at this point, he was hypotensive yesterday, received over 3 L of fluid boluses, urine output seems to be improving, and hemodynamically the patient didn't improve. We will give the patient more fluid boluses this morning to improve his urine output otherwise may have to challenge with a diuretic. Chest x-ray today was reviewed, seems to be unremarkable. Labs were all reviewed WBC 6.7 hemoglobin 15.1 sodium is 131 potassium 4.2, BUN is 27 creatinine 1.34. Reevaluated today on 08/25/23, patient was extubated yesterday, he is now on room air, seems to be very comfortable, patient had a PICC line placed yesterday for nutritional support/TPN. Patient is comfortable, he is not in any distress, doing relatively well with incentive spirometry. WBC count is 6.5 hemoglobin is 12 basic metabolic profile is normal bicarb is 19, renal profile is normal. No chest x-ray was felt to be necessary today. Objective - Vital Signs Vital signs: Vital Signs Temp 98.1 F 08/25/23 08:00 Pulse 70 08/25/23 10:00 Resp 28 H 08/25/23 10:00 BP 151/81 08/25/23 09:30 Pulse Ox 93 L 08/25/23 10:00 FiO2 40 08/24/23 08:52 Intake & Output 08/24/23 08/25/23 08/25/23 18:59 06:59 18:59 Intake Total 2764.129 1989 840 Output Total 695 875 350 Balance 2069.129 1115 490 Weight 97.8 kg 98.7 kg Intake: IV 2560 1989 640 Fluconazole in NaCl,Iso- 200 100 Osm 400 mg In Saline 1 200ml.bag @ 100 mls/hr IVPB DAILY [facility] Rx#: [id number] Levofloxacin 500Mg-D5w 100 Pmx 500 mg In Dextrose/ Water 1 100ml.bag @ 100 mls/hr IVPB Q24H [facility] Rx#: [id number] Mvi, Adult No.4 with Vit 330 120 K 10 ml Trace (Conc-1Ml/ Dose) 1 ml In Amino Acid 5%-D20w+Lytes*E* 1,000 ml @ 30 mls/hr IV .Q24H [facility] Rx#:[id number] Sodium Chloride 0.9% 1, 1560 1560 520 000 ml @ 130 mls/hr IV . Q7H42M [facility] Rx#:[id number] Sodium Chloride 0.9% 500 500 ml 500 ml @ 999 mls/hr IV .Q31M [facility] Rx#:[id number] metroNIDAZOLE-NS PMX 500 200 mg In Saline 1 100ml.bag @ 100 mls/hr IVPB ONCE [facility] Rx#:[id number] Intake, IV Titration 204.129 200 Amount Fluconazole in NaCl,Iso- 200 Osm 400 mg In Saline 1 200ml.bag @ 100 mls/hr IVPB DAILY [facility] Rx#: [id number] fentaNYL (PF). 1,000 mcg 104.129 In Sodium Chloride 0.9% 80 ml @ 0.5 MCG/KG/HR 4. 659 mls/hr IV .[id number] [facility] Rx#:[id number] propofoL 1,000 mg In 100 Empty Bag 1 bag @ 15 MCG/ KG/MIN 8.386 mls/hr IV . [id number] [facility] Rx#:[id number] Output: Drainage 200 60 25 Right Medial Abdomen 200 60 25 Urine 495 815 325 Other: Voiding Method Indwelling Catheter Indwelling Catheter Indwelling Catheter - Exam Physical Exam: Revealed a 67-year-old white male calm, on room air, not in distress Head: Atraumatic, normocephalic. HEENT:[Neck is supple.] [No neck masses.] [No thyromegaly.] [No JVD.] Chest: [Clear throughout, no crackles, no rhonchi, no wheezes.] Cardiac Exam: [Normal S1 and S2, no S3 gallop, no murmur.] Abdomen: [Postsurgical. Soft, nontender, no megaly, no rebound, no guarding, no bowel sounds. Extremities: [No clubbing, no edema, no cyanosis.] Neurological Exam: [No focal neurologic deficit.] Alert oriented 3. Psychiatric: Normal mood affect and normal mental status examination. Skin: No rashes. - Labs CBC & Chem 7: 08/25/23 05:26 08/25/23 05:26 Labs: Abnormal Lab Results - Last 24 Hours (Table) 08/24/23 08/25/23 08/25/23 Range/Units 03:44 00:09 05:26 RBC (4.30-5.90) m/uL Hgb (13.0-17.5) gm/dL Hct (39.0-53.0) % Lymphocytes # (1.0-4.8) k/uL Sodium (137-145) mmol/L Chloride (98-107) mmol/L Carbon Dioxide (22-30) mmol/L BUN (9-20) mg/dL Glucose (74-99) mg/dL POC Glucose (mg/dL) 130 H (70-110) mg/dL Hemoglobin A1c 6.4 H (<=6.0) % Calcium (8.4-10.2) mg/dL Phosphorus (2.5-4.5) mg/dL Magnesium 1.5 L (1.6-2.3) mg/dL Albumin 2.3 L (3.5-5.0) g/dL 08/25/23 08/25/23 08/25/23 Range/Units 05:26 05:26 06:12 RBC 3.89 L (4.30-5.90) m/uL Hgb 12.0 L D (13.0-17.5) gm/dL Hct 35.8 L (39.0-53.0) % Lymphocytes # 0.6 L (1.0-4.8) k/uL Sodium 134 L (137-145) mmol/L Chloride 111 H (98-107) mmol/L Carbon Dioxide 19 L (22-30) mmol/L BUN 21 H (9-20) mg/dL Glucose 125 H (74-99) mg/dL POC Glucose (mg/dL) 127 H (70-110) mg/dL Hemoglobin A1c (<=6.0) % Calcium 7.3 L (8.4-10.2) mg/dL Phosphorus 2.1 L (2.5-4.5) mg/dL Magnesium (1.6-2.3) mg/dL Albumin (3.5-5.0) g/dL Microbiology - Last 24 Hours (Table) 08/23/23 19:55 Gram Stain - Preliminary Sputum Sputum Culture - Preliminary 08/23/23 09:45 Blood Culture - Preliminary Blood 08/23/23 09:30 Blood Culture - Preliminary Blood Assessment and Plan Assessment: Impression: Acute abdominal pain secondary to perforated duodenal ulcer in the third portion of duodenum with extensive right retroperitoneal inflammatory changes. Status post exploratory laparotomy with repair of duodenal ulcer with modified Jesús patch. Postoperative day #2 Daily heroin abuse, currently residing at [facility] History of opioid abuse Recommendation: Continue present supportive care measures Continue TPN Continue incentive spirometry Continue to monitor for possible opiate withdrawal Continue pain medications Continue to monitor in the ICU for the next 24 hours. GI and DVT prophylaxis Nutritional support/TPN We will continue to follow. Time with Patient: Less than 30
[2023-08-25] MEDS: HYDROmorphone 1 MG/ML 1 ML SYRINGE IVP PRN ×2 (11:02→18:54)
[2023-08-25] MEDS: POTASSIUM CHLORIDE 10 MEQ in WATER FOR INJECTION 1 100ML.BAG IVPB SCH ×4 (11:10→18:29)
[2023-08-25] MEDS: ACETAMINOPHEN IV (For NPO) 1,000 MG in EMPTY BAG 1 BAG IVPB SCH ×2 (12:05→17:08)
[2023-08-25 12:20] LABS: Glucose,Whole Blood 129 mg/dL (70-110)
--- NOTE | 2023-08-25 13:44 | P.PN ---
Subjective Progress Note Date: 08/25/23 CHIEF COMPLAINT: Perforated duodenal ulcer HISTORY OF PRESENT ILLNESS: Patient is currently in the ICU. He is status post postop day #2 exploratory laparotomy and repair of duodenal ulcer with modified Jesús patch. Patient reports his pain is controlled. He denies any nausea or vomiting. He did have flatus. GIOVANNA drain with 65 mL serosanguineous output. Afebrile. WBC 6.5 hgb 12 platelets 167 PHYSICAL EXAM: VITAL SIGNS: Reviewed. GENERAL: Well-developed in no acute distress. HEENT: No sclera icterus. Extraocular movements grossly intact. Moist buccal mucosa. Head is atraumatic, normocephalic. ABDOMEN: Soft. nondistended. Tender at incision site. Patient has intact prevana wound VAC in place. GIOVANNA drain with serosanguineous output NEUROLOGIC: Alert and oriented. Cranial nerves II through XII grossly intact. ASSESSMENT: 1. Perforated duodenal ulcer in the third portion of the duodenum with extensive right retroperitoneal inflammatory changes status post Exploratory laparotomy and Repair of duodenal ulcer with modified Jesús patch 2. Heroin abuse PLAN: -Continue TPN for nutrition support -Keep patient nothing by mouth -Continue IV Protonix -Continue antibiotics -Continue IV fluids -Continue pain management -Encouraged patient to use incentive spirometer -Encouraged patient to increase activity level -DVT prophylaxis subcu heparin Physician Dog Show Judge note has been reviewed by physician. Signing provider agrees with the documented findings, assessment, and plan of care. Objective - Vital Signs Vital signs: Vital Signs Temp 98.1 F 08/25/23 12:00 Pulse 67 08/25/23 12:00 Resp 34 H 08/25/23 12:00 BP 157/92 08/25/23 12:00 Pulse Ox 95 08/25/23 12:00 FiO2 40 08/24/23 08:52 Intake & Output 08/24/23 08/25/23 08/25/23 18:59 06:59 18:59 Intake Total 2764.129 1989 1460 Output Total 695 875 525 Balance 2069.129 1115 935 Weight 97.8 kg 98.7 kg Intake: IV 2560 1989 1160 ACETAMINOPHEN IV (For NPO 100 ) 1,000 mg In Empty Bag 1 bag @ 400 mls/hr IVPB Q6HR [facility] Rx#:[id number] Fluconazole in NaCl,Iso- 200 100 Osm 400 mg In Saline 1 200ml.bag @ 100 mls/hr IVPB DAILY [facility] Rx#: [id number] Levofloxacin 500Mg-D5w 100 Pmx 500 mg In Dextrose/ Water 1 100ml.bag @ 100 mls/hr IVPB Q24H [facility] Rx#: [id number] Mvi, Adult No.4 with Vit 330 180 K 10 ml Trace (Conc-1Ml/ Dose) 1 ml In Amino Acid 5%-D20w+Lytes*E* 1,000 ml @ 30 mls/hr IV .Q24H [facility] Rx#:[id number] Potassium Chloride 10 meq 100 In Water For Injection 1 100ml.bag @ 100 mls/hr IVPB Q1H [facility] Rx#: [id number] Sodium Chloride 0.9% 1, 1560 1560 780 000 ml @ 130 mls/hr IV . Q7H42M [facility] Rx#:[id number] Sodium Chloride 0.9% 500 500 ml 500 ml @ 999 mls/hr IV .Q31M [facility] Rx#:[id number] metroNIDAZOLE-NS PMX 500 200 mg In Saline 1 100ml.bag @ 100 mls/hr IVPB ONCE [facility] Rx#:[id number] Intake, IV Titration 204.129 300 Amount Fluconazole in NaCl,Iso- 300 Osm 400 mg In Saline 1 200ml.bag @ 100 mls/hr IVPB DAILY [facility] Rx#: [id number] fentaNYL (PF). 1,000 mcg 104.129 In Sodium Chloride 0.9% 80 ml @ 0.5 MCG/KG/HR 4. 659 mls/hr IV .[id number] [facility] Rx#:[id number] propofoL 1,000 mg In 100 Empty Bag 1 bag @ 15 MCG/ KG/MIN 8.386 mls/hr IV . [id number] [facility] Rx#:[id number] Output: Drainage 200 60 25 Right Medial Abdomen 200 60 25 Urine 495 815 500 Other: Voiding Method Indwelling Catheter Indwelling Catheter Indwelling Catheter - Labs CBC & Chem 7: 08/25/23 05:26 08/25/23 05:26 Labs: Abnormal Lab Results - Last 24 Hours (Table) 08/24/23 08/25/23 08/25/23 Range/Units 03:44 00:09 05:26 RBC (4.30-5.90) m/uL Hgb (13.0-17.5) gm/dL Hct (39.0-53.0) % Lymphocytes # (1.0-4.8) k/uL Sodium (137-145) mmol/L Chloride (98-107) mmol/L Carbon Dioxide (22-30) mmol/L BUN (9-20) mg/dL Glucose (74-99) mg/dL POC Glucose (mg/dL) 130 H (70-110) mg/dL Hemoglobin A1c 6.4 H (<=6.0) % Calcium (8.4-10.2) mg/dL Phosphorus (2.5-4.5) mg/dL Magnesium 1.5 L (1.6-2.3) mg/dL Albumin 2.3 L (3.5-5.0) g/dL 08/25/23 08/25/23 08/25/23 Range/Units 05:26 05:26 06:12 RBC 3.89 L (4.30-5.90) m/uL Hgb 12.0 L D (13.0-17.5) gm/dL Hct 35.8 L (39.0-53.0) % Lymphocytes # 0.6 L (1.0-4.8) k/uL Sodium 134 L (137-145) mmol/L Chloride 111 H (98-107) mmol/L Carbon Dioxide 19 L (22-30) mmol/L BUN 21 H (9-20) mg/dL Glucose 125 H (74-99) mg/dL POC Glucose (mg/dL) 127 H (70-110) mg/dL Hemoglobin A1c (<=6.0) % Calcium 7.3 L (8.4-10.2) mg/dL Phosphorus 2.1 L (2.5-4.5) mg/dL Magnesium (1.6-2.3) mg/dL Albumin (3.5-5.0) g/dL 08/25/23 Range/Units 12:19 RBC (4.30-5.90) m/uL Hgb (13.0-17.5) gm/dL Hct (39.0-53.0) % Lymphocytes # (1.0-4.8) k/uL Sodium (137-145) mmol/L Chloride (98-107) mmol/L Carbon Dioxide (22-30) mmol/L BUN (9-20) mg/dL Glucose (74-99) mg/dL POC Glucose (mg/dL) 129 H (70-110) mg/dL Hemoglobin A1c (<=6.0) % Calcium (8.4-10.2) mg/dL Phosphorus (2.5-4.5) mg/dL Magnesium (1.6-2.3) mg/dL Albumin (3.5-5.0) g/dL Microbiology - Last 24 Hours (Table) 08/23/23 19:55 Gram Stain - Preliminary Sputum Sputum Culture - Preliminary 08/23/23 09:45 Blood Culture - Preliminary Blood 08/23/23 09:30 Blood Culture - Preliminary Blood
[2023-08-25 18:22] LABS: Glucose,Whole Blood 105 mg/dL (70-110)
[2023-08-25] MEDS: FAT EMULSION 20% 250 ML IV SCH (21:19)
[2023-08-25] MEDS: 1: MVI, ADULT NO.4 WITH VIT K 10 ML, TRACE (CONC-1ML/DOSE) 1 ML in AMINO ACID 5%-D20W+LY IV SCH ×3 (21:19)
[2023-08-26 00:07] LABS: Glucose,Whole Blood 146 mg/dL (70-110)
[2023-08-26] MEDS: SODIUM CHLORIDE 0.9% 1,000 ML IV SCH ×4 (00:07→20:47)
[2023-08-26] MEDS: metroNIDAZOLE-NS PMX 500 MG in SALINE 1 100ML.BAG IVPB SCH ×3 (00:15→17:24)
[2023-08-26] MEDS: ACETAMINOPHEN IV (For NPO) 1,000 MG in EMPTY BAG 1 BAG IVPB SCH ×2 (00:15→05:53)
[2023-08-26] MEDS: INSULIN ASPART (NovoLOG) 100 UNIT/ML VIAL SQ SCH ×4 (00:15→17:29)
[2023-08-26 05:37] LABS: Basophils % (A) 0 %; Eosinophils # (A) 0.2 k/uL (0-0.7); Eosinophils % (A) 3 %; HCT 33.3 % (39.0-53.0); Lymphocytes # (A) 0.7 k/uL (1.0-4.8); Lymphocytes % (A) 8 %; MCH 30.5 pg (25.0-35.0); MCV 92.3 fL (80.0-100.0); Mean Platelet Volume 8.1; Monocytes # (A) 0.6 k/uL (0-1.0); Monocytes % (A) 7 %; Neutrophils # (A) 7.2 k/uL (1.3-7.7); Neutrophils % (A) 82 %; Platelet Count 186 k/uL (150-450); RBC 3.61 m/uL (4.30-5.90); RDW 14.3 % (11.5-15.5); WBC 8.8 k/uL (3.8-10.6)
[2023-08-26 06:06] LABS: African American GFR (CKD) >90 (>60 ml/min/1.73 sqM); Anion Gap 5 mmol/L; Blood Urea Nitrogen 21 mg/dL (9-20); Calcium 7.1 mg/dL (8.4-10.2); Carbon Dioxide 20 mmol/L (22-30); Chloride 110 mmol/L (98-107); Glucose 140 mg/dL (74-99); Magnesium 1.9 mg/dL (1.6-2.3); Non-African American GFR(CKD) >90 (>60 ml/min/1.73 sqM); Phosphorus 1.8 mg/dL (2.5-4.5); Potassium 3.5 mmol/L (3.5-5.1); Sodium 135 mmol/L (137-145)
[2023-08-26 06:38] LABS: Glucose,Whole Blood 127 mg/dL (70-110)
[2023-08-26] MEDS: 1: MVI, ADULT NO.4 WITH VIT K 10 ML, TRACE (CONC-1ML/DOSE) 1 ML in AMINO ACID 5%-D20W+LY IV SCH ×6 (07:33→19:00)
[2023-08-26] MEDS: HEPARIN SODIUM,PORCINE 5,000 UNIT/ML 1 ML VIAL SQ SCH ×2 (07:45→20:46)
[2023-08-26] MEDS: POTASSIUM CHLORIDE 20 MEQ in WATER FOR INJECTION 1 100ML.BAG IVPB SCH ×4 (07:45→20:46)
[2023-08-26] MEDS: PANTOPRAZOLE 40 MG/10 ML VIAL IVP SCH ×2 (07:45→20:46)
[2023-08-26] MEDS: FLUCONAZOLE IN NACL,ISO-OSM 400 MG in SALINE 1 200ML.BAG IVPB SCH (07:46)
[2023-08-26] MEDS: LEVOFLOXACIN 500MG-D5W PMX 500 MG in DEXTROSE/WATER 1 100ML.BAG IVPB SCH (07:46)
[2023-08-26] MEDS: HYDROmorphone 1 MG/ML 1 ML SYRINGE IVP PRN ×4 (08:23→22:35)
[2023-08-26] MEDS ORDERED: SODIUM PHOSPHATE 30 MMOL in DEXTROSE 5% IN WATER 250 ML IVPB ONE ×2 (10:30)
[2023-08-26 11:05] VITALS: BMI 32.1
--- NOTE | 2023-08-26 11:10 | P.PN ---
Subjective Progress Note Date: 08/26/23 CHIEF COMPLAINT: Perforated duodenal ulcer HISTORY OF PRESENT ILLNESS: Patient is currently in the ICU as MedSurg overflow. He is postop day #3 status post exploratory laparotomy and repair of duodenal ulcer with modified Jesús patch. Patient reports his pain is controlled and decreasing each day. He is having flatus. No bowel movement. Denies any nausea or vomiting. GIOVANNA drain 90 mL serosanguineous output. Afebrile. WBC 8.8 Hgb 11.0 platelets 186 sodium 135 potassium 3.5 creatinine 0.77. Patient did sit up in chair yesterday. PHYSICAL EXAM: VITAL SIGNS: Reviewed. GENERAL: Well-developed in no acute distress. HEENT: No sclera icterus. Extraocular movements grossly intact. Moist buccal mucosa. Head is atraumatic, normocephalic. ABDOMEN: Soft. nondistended. Tender at incision site. Intact prevana wound VAC . GIOVANNA drain with serosanguineous output NEUROLOGIC: Alert and oriented. Cranial nerves II through XII grossly intact. ASSESSMENT: 1. Perforated duodenal ulcer in the third portion of the duodenum with extensive right retroperitoneal inflammatory changes status post Exploratory laparotomy and Repair of duodenal ulcer with modified Jesús patch 2. Heroin abuse PLAN: -Start clear liquid diet tomorrow morning -Continue TPN for nutrition support -Continue IV Protonix -Continue antibiotics -Continue IV fluids -Continue pain management -Encouraged patient to use incentive spirometer -Encouraged patient to increase activity level -DVT prophylaxis subcu heparin Physician Yard Person note has been reviewed by physician. Signing provider agrees with the documented findings, assessment, and plan of care. Objective - Vital Signs Vital signs: Vital Signs Temp 98.1 F 08/26/23 08:00 Pulse 57 L 08/26/23 08:00 Resp 28 H 08/26/23 08:00 BP 144/81 08/26/23 08:00 Pulse Ox 93 L 08/26/23 08:00 FiO2 40 08/24/23 08:52 Intake & Output 08/25/23 08/26/23 08/26/23 18:59 06:59 18:59 Intake Total 3120 2934.4 1990.4 Output Total 920 1115 280 Balance 2200 1819.4 1710.4 Weight 101.6 kg 101.6 kg Intake: IV 2420 2934.4 1012.8 ACETAMINOPHEN IV (For NPO 200 ) 1,000 mg In Empty Bag 1 bag @ 400 mls/hr IVPB Q6HR [facility] Rx#:[id number] Amino Acid 5%-D20w+Lytes* 1056 192 E* 1,000 ml @ 96 mls/hr IV .BY DURATION [facility] Rx#: [id number] Fat Emulsion 20% 250 ml @ 224.4 40.8 20.833 mls/hr IV WeSa [facility] Rx#:[id number] Fluconazole in NaCl,Iso- 200 Osm 400 mg In Saline 1 200ml.bag @ 100 mls/hr IVPB DAILY [facility] Rx#: [id number] Invasive Line 1 10 Invasive Line 2 10 Invasive Line 3 10 Invasive Line 4 40 Levofloxacin 500Mg-D5w 100 100 Pmx 500 mg In Dextrose/ Water 1 100ml.bag @ 100 mls/hr IVPB Q24H [facility] Rx#: [id number] Mvi, Adult No.4 with Vit 360 94 K 10 ml Trace (Conc-1Ml/ Dose) 1 ml In Amino Acid 5%-D20w+Lytes*E* 1,000 ml @ 30 mls/hr IV .Q24H [facility] Rx#:[id number] Potassium Chloride 10 meq 200 In Water For Injection 1 100ml.bag @ 100 mls/hr IVPB Q1H [facility] Rx#: [id number] Potassium Chloride 20 meq 50 In Water For Injection 1 100ml.bag @ 50 mls/hr IVPB Q2H [facility] Rx#: [id number] Sodium Chloride 0.9% 1, 1560 1560 260 000 ml @ 130 mls/hr IV . Q7H42M [facility] Rx#:[id number] metroNIDAZOLE-NS PMX 500 100 mg In Saline 1 100ml.bag @ 100 mls/hr IVPB Q8HR [facility] Rx#:[id number] Intake, IV Titration 700 977.6 Amount ACETAMINOPHEN IV (For NPO 400 ) 1,000 mg In Empty Bag 1 bag @ 400 mls/hr IVPB Q6HR [facility] Rx#:[id number] Fluconazole in NaCl,Iso- 200 Osm 400 mg In Saline 1 200ml.bag @ 100 mls/hr IVPB DAILY [facility] Rx#: [id number] IV Fluid Continuation 800 100 ml @ 0 mls/hr IV .[facility] Rx#:[id number] Mvi, Adult No.4 with Vit 977.6 K 10 ml Trace (Conc-1Ml/ Dose) 1 ml In Amino Acid 5%-D20w+Lytes*E* 1,000 ml @ 96 mls/hr IV .BY D[facility]ATION [facility] Rx#: [id number] Output: Drainage 75 120 90 Right Medial Abdomen 75 120 90 Urine 845 995 190 Other: Voiding Method Indwelling Catheter Indwelling Catheter Indwelling Catheter - Labs CBC & Chem 7: 08/26/23 05:18 08/26/23 05:18 Labs: Abnormal Lab Results - Last 24 Hours (Table) 08/25/23 08/26/23 08/26/23 Range/Units 12:19 00:06 05:18 RBC (4.30-5.90) m/uL Hgb (13.0-17.5) gm/dL Hct (39.0-53.0) % Lymphocytes # (1.0-4.8) k/uL Sodium 135 L (137-145) mmol/L Chloride 110 H (98-107) mmol/L Carbon Dioxide 20 L (22-30) mmol/L BUN 21 H (9-20) mg/dL Glucose 140 H (74-99) mg/dL POC Glucose (mg/dL) 129 H 146 H (70-110) mg/dL Calcium 7.1 L (8.4-10.2) mg/dL Phosphorus 1.8 L (2.5-4.5) mg/dL 08/26/23 08/26/23 Range/Units 05:18 06:37 RBC 3.61 L (4.30-5.90) m/uL Hgb 11.0 L (13.0-17.5) gm/dL Hct 33.3 L (39.0-53.0) % Lymphocytes # 0.7 L (1.0-4.8) k/uL Sodium (137-145) mmol/L Chloride (98-107) mmol/L Carbon Dioxide (22-30) mmol/L BUN (9-20) mg/dL Glucose (74-99) mg/dL POC Glucose (mg/dL) 127 H (70-110) mg/dL Calcium (8.4-10.2) mg/dL Phosphorus (2.5-4.5) mg/dL Microbiology - Last 24 Hours (Table) 08/23/23 09:45 Blood Culture - Preliminary Blood 08/23/23 09:30 Blood Culture - Preliminary Blood 08/23/23 19:55 Gram Stain - Preliminary Sputum Sputum Culture - Preliminary
[2023-08-26 11:23] LABS: Glucose,Whole Blood 137 mg/dL (70-110)
--- NOTE | 2023-08-26 11:26 | P.PN ---
Subjective Progress Note Date: 08/26/23 Principal diagnosis: Acute abdominal pain secondary to perforated duodenal ulcer in the third portion of duodenum with extensive right retroperitoneal inflammatory changes. Status post exploratory laparotomy with repair of duodenal ulcer with modified Jesús patch. Postoperative day #3 This is a 57-year-old male patient with a known history of daily heroin use who was in rehab for 3 days at [place] when he developed abdominal pain nausea and vomiting early this morning. He was having suprapubic pain and had not had any bowel movements. He noted some flecks of blood in his emesis. No previous history of ulcer. He had been taken Motrin. Denied any alcohol use. Computed tomography scan of the abdomen and pelvis did reveal pneumonia retroperitoneum with suspected gastric or duodenal perforation. Inflammatory changes identified involving the duodenum and proximal small bowel. Small amount of ascites identified through the abdomen and pelvis. He was taken urgently to the operating room and was found to have a perforated duodenal ulcer in the third po rtion of the duodenum with extensive right retroperitoneal inflammatory changes. He had repair of duodenal ulcer with modified Jesús patch. He was left intubated on mechanical ventilator and transferred to the intensive care unit where he is seen today in consultation. Current ventilator settings are assist- control mode at a rate of 18, tidal volume 500, FiO2 40% and a PEEP of 5. He is sedated with propofol at 50 mcg/kg/m. Currently requiring fentanyl 1.5 mcg/kg per hour. He is also receiving Dilaudid intermittently. He's been initiated on Levaquin and Flagyl. He has normal saline running at 130 ML's per hour. Arterial blood gases on 100% FiO2 revealed a pO2 greater than 400, pCO2 of 40 and a pH of 7.32. White count 18.4. Hemoglobin 15.6. Platelets 289. Sodium 133. Potassium 3.8. Bicarb 18. BUN 21. Creatinine 0.96. Lactic acid 3.9. AST 39. ALT 40. Chest x-ray revealed endotracheal tube 5 cm above the amber. There is air seen in the upper mediastinum and overlying soft tissues of the neck correlate for pneumomediastinum. Patient was reevaluated today on 08/24/2023 patient remains intubated and mechanically ventilated. He is on assist control rate of 18 tidal volume 500 FiO2 40% PEEP of 5 ABG showed a pO2 of 147 pCO2 33 pH of 7.39. Patient is on IV fluid 0.9 normal saline at 13 0 mL per hour propofol at 30 mcg/kg/m and fentanyl 1.5 mcg/kg per hour. Patient is not requiring pressors at this point, he was hypotensive yesterday, received over 3 L of fluid boluses, urine output seems to be improving, and hemodynamically the patient didn't improve. We will give the patient more fluid boluses this morning to improve his urine output otherwise may have to challenge with a diuretic. Chest x-ray today was reviewed, seems to be unremarkable. Labs were all reviewed WBC 6.7 hemoglobin 15.1 sodium is 131 potassium 4.2, BUN is 27 creatinine 1.34. Reevaluated today on 08/25/23, patient was extubated yesterday, he is now on room air, seems to be very comfortable, patient had a PICC line placed yesterday for nutritional support/TPN. Patient is comfortable, he is not in any distress, doing relatively well with incentive spirometry. WBC count is 6.5 hemoglobin is 12 basic metabolic profile is normal bicarb is 19, renal profile is normal. No chest x-ray was felt to be necessary today. Patient was reevaluated today on 08/26/23, remains in the ICU, patient is presently on room air, his IV fluid is running at 1 30 mL per hour, remains on TPN, patient is on Diflucan Flagyl and Levaquin, seems to be recovering nicely from his recent surgery. Patient is on room air, does not seem to be in any distress. Labs today were reviewed a CBC is relatively normal, basic metabolic profile is normal, renal profile is normal, the plan is to transfer the patient in the ICU to a medical surgical floor likely today Objective - Vital Signs Vital signs: Vital Signs Temp 98.1 F 08/26/23 08:00 Pulse 57 L 08/26/23 08:00 Resp 28 H 08/26/23 08:00 BP 144/81 08/26/23 08:00 Pulse Ox 93 L 08/26/23 08:00 FiO2 40 08/24/23 08:52 Intake & Output 08/25/23 08/26/23 08/26/23 18:59 06:59 18:59 Intake Total 3120 2934.4 1990.4 Output Total 920 1115 280 Balance 2200 1819.4 1710.4 Weight 101.6 kg 101.6 kg Intake: IV 2420 2934.4 1012.8 ACETAMINOPHEN IV (For NPO 200 ) 1,000 mg In Empty Bag 1 bag @ 400 mls/hr IVPB Q6HR [facility] Rx#:[id number] Amino Acid 5%-D20w+Lytes* 1056 192 E* 1,000 ml @ 96 mls/hr IV .BY DURATION [facility] Rx#: [id number] Fat Emulsion 20% 250 ml @ 224.4 40.8 20.833 mls/hr IV WeSa [facility] Rx#:[id number] Fluconazole in NaCl,Iso- 200 Osm 400 mg In Saline 1 200ml.bag @ 100 mls/hr IVPB DAILY [facility] Rx#: [id number] Invasive Line 1 10 Invasive Line 2 10 Invasive Line 3 10 Invasive Line 4 40 Levofloxacin 500Mg-D5w 100 100 Pmx 500 mg In Dextrose/ Water 1 100ml.bag @ 100 mls/hr IVPB Q24H [facility] Rx#: [id number] Mvi, Adult No.4 with Vit 360 94 K 10 ml Trace (Conc-1Ml/ Dose) 1 ml In Amino Acid 5%-D20w+Lytes*E* 1,000 ml @ 30 mls/hr IV .Q24H [facility] Rx#:[id number] Potassium Chloride 10 meq 200 In Water For Injection 1 100ml.bag @ 100 mls/hr IVPB Q1H [facility] Rx#: [id number] Potassium Chloride 20 meq 50 In Water For Injection 1 100ml.bag @ 50 mls/hr IVPB Q2H [facility] Rx#: [id number] Sodium Chloride 0.9% 1, 1560 1560 260 000 ml @ 130 mls/hr IV . Q7H42M [facility] Rx#:[id number] metroNIDAZOLE-NS PMX 500 100 mg In Saline 1 100ml.bag @ 100 mls/hr IVPB Q8HR [facility] Rx#:[id number] Intake, IV Titration 700 977.6 Amount ACETAMINOPHEN IV (For NPO 400 ) 1,000 mg In Empty Bag 1 bag @ 400 mls/hr IVPB Q6HR [facility] Rx#:[id number] Fluconazole in NaCl,Iso- 200 Osm 400 mg In Saline 1 200ml.bag @ 100 mls/hr IVPB DAILY [facility] Rx#: [id number] IV Fluid Continuation 800 100 ml @ 0 mls/hr IV .[facility] Rx#:[id number] Mvi, Adult No.4 with Vit 977.6 K 10 ml Trace (Conc-1Ml/ Dose) 1 ml In Amino Acid 5%-D20w+Lytes*E* 1,000 ml @ 96 mls/hr IV .BY DURATION [facility] Rx#: [id number] Output: Drainage 75 120 90 Right Medial Abdomen 75 120 90 Urine 845 995 190 Other: Voiding Method Indwelling Catheter Indwelling Catheter Indwelling Catheter - Exam Physical Exam: Revealed a 67-year-old white male calm, on room air, not in distress Head: Atraumatic, normocephalic. HEENT:[Neck is supple.] [No neck masses.] [No thyromegaly.] [No JVD.] Chest: [Clear throughout, no crackles, no rhonchi, no wheezes.] Cardiac Exam: [Normal S1 and S2, no S3 gallop, no murmur.] Abdomen: [Postsurgical. Soft, nontender, no megaly, no rebound, no guarding, no bowel sounds. Extremities: [No clubbing, no edema, no cyanosis.] Neurological Exam: [No focal neurologic deficit.] Alert oriented 3. Psychiatric: Normal mood affect and normal mental status examination. Skin: No rashes. - Labs CBC & Chem 7: 08/26/23 05:18 08/26/23 05:18 Labs: Abnormal Lab Results - Last 24 Hours (Table) 08/25/23 08/26/23 08/26/23 Range/Units 12:19 00:06 05:18 RBC (4.30-5.90) m/uL Hgb (13.0-17.5) gm/dL Hct (39.0-53.0) % Lymphocytes # (1.0-4.8) k/uL Sodium 135 L (137-145) mmol/L Chloride 110 H (98-107) mmol/L Carbon Dioxide 20 L (22-30) mmol/L BUN 21 H (9-20) mg/dL Glucose 140 H (74-99) mg/dL POC Glucose (mg/dL) 129 H 146 H (70-110) mg/dL Calcium 7.1 L (8.4-10.2) mg/dL Phosphorus 1.8 L (2.5-4.5) mg/dL 08/26/23 08/26/23 08/26/23 Range/Units 05:18 06:37 11:22 RBC 3.61 L (4.30-5.90) m/uL Hgb 11.0 L (13.0-17.5) gm/dL Hct 33.3 L (39.0-53.0) % Lymphocytes # 0.7 L (1.0-4.8) k/uL Sodium (137-145) mmol/L Chloride (98-107) mmol/L Carbon Dioxide (22-30) mmol/L BUN (9-20) mg/dL Glucose (74-99) mg/dL POC Glucose (mg/dL) 127 H 137 H (70-110) mg/dL Calcium (8.4-10.2) mg/dL Phosphorus (2.5-4.5) mg/dL Microbiology - Last 24 Hours (Table) 08/23/23 09:45 Blood Culture - Preliminary Blood 08/23/23 09:30 Blood Culture - Preliminary Blood 08/23/23 19:55 Gram Stain - Preliminary Sputum Sputum Culture - Preliminary Assessment and Plan Assessment: Impression: Acute abdominal pain secondary to perforated duodenal ulcer in the third portion of duodenum with extensive right retroperitoneal inflammatory changes. Status post exploratory laparotomy with repair of duodenal ulcer with modified Jesús patch. Postoperative day #3 Daily heroin abuse, currently residing at [facility] History of opioid abuse Recommendation: Continue present supportive care measures Continue TPN Continue incentive spirometry Continue to monitor for possible opiate withdrawal Continue pain medications Transfer patient to a medical surgical floor GI and DVT prophylaxis Nutritional support/TPN We will continue to follow. Time with Patient: Less than 30
[2023-08-26] MEDS ORDERED: MAGNESIUM SULFATE-D5W PMX 1 GM in DEXTROSE/WATER 1 100ML.BAG IVPB ONE (17:17)
[2023-08-26] MEDS ORDERED: Magnesium Replacement Protocol 1 EACH MISC MISCELLANE PRN (17:17)
[2023-08-26 17:26] LABS: Glucose,Whole Blood 135 mg/dL (70-110)
[2023-08-26 23:55] LABS: Glucose,Whole Blood 119 mg/dL (70-110)
[2023-08-27] MEDS: INSULIN ASPART (NovoLOG) 100 UNIT/ML VIAL SQ SCH ×4 (00:11→17:36)
[2023-08-27] MEDS: metroNIDAZOLE-NS PMX 500 MG in SALINE 1 100ML.BAG IVPB SCH ×3 (00:18→17:42)
[2023-08-27] MEDS: HYDROmorphone 1 MG/ML 1 ML SYRINGE IVP PRN ×2 (02:35→07:35)
[2023-08-27 05:54] LABS: Glucose,Whole Blood 92 mg/dL (70-110)
[2023-08-27] MEDS: 1: MVI, ADULT NO.4 WITH VIT K 10 ML, TRACE (CONC-1ML/DOSE) 1 ML in AMINO ACID 5%-D20W+LY IV SCH ×3 (05:56)
[2023-08-27] MEDS: SODIUM CHLORIDE 0.9% 1,000 ML IV SCH ×2 (05:57→20:35)
[2023-08-27 06:47] LABS: ALT 14 U/L (4-49); AST 19 U/L (17-59); African American GFR (CKD) >90 (>60 ml/min/1.73 sqM); Alkaline Phosphatase 42 U/L (38-126); Anion Gap 6 mmol/L; Blood Urea Nitrogen 17 mg/dL (9-20); Calcium 7.2 mg/dL (8.4-10.2); Carbon Dioxide 20 mmol/L (22-30); Chloride 108 mmol/L (98-107); Glucose 85 mg/dL (74-99); Magnesium 1.8 mg/dL (1.6-2.3); Non-African American GFR(CKD) >90 (>60 ml/min/1.73 sqM); Phosphorus 2.5 mg/dL (2.5-4.5); Potassium 3.5 mmol/L (3.5-5.1); Sodium 134 mmol/L (137-145); Total Bilirubin 0.6 mg/dL (0.2-1.3); Total Protein 4.1 g/dL (6.3-8.2)
[2023-08-27] MEDS: HEPARIN SODIUM,PORCINE 5,000 UNIT/ML 1 ML VIAL SQ SCH ×2 (07:53→20:35)
[2023-08-27] MEDS: PANTOPRAZOLE 40 MG/10 ML VIAL IVP SCH ×2 (07:54→20:36)
[2023-08-27] MEDS: FLUCONAZOLE IN NACL,ISO-OSM 400 MG in SALINE 1 200ML.BAG IVPB SCH (09:27)
[2023-08-27] MEDS ORDERED: Potassium Replacement Protocol 1 EACH MISC MISCELLANE PRN (09:41)
[2023-08-27] MEDS ORDERED: Magnesium Replacement Protocol 1 EACH MISC MISCELLANE PRN (09:42)
--- NOTE | 2023-08-27 10:20 | P.PN ---
Subjective Progress Note Date: 08/27/23 CHIEF COMPLAINT: Perforated duodenal ulcer HISTORY OF PRESENT ILLNESS: Patient is currently in the ICU as MedSurg overflow. He is postop day #4 status post exploratory laparotomy and repair of duodenal ulcer with modified Jesús patch. Patient reports his pain is controlled. He is having flatus. Denies any nausea or vomiting. He did start clear liquids this morning and is currently tolerating them. Afebrile. Na 134 K 3.5 creatinine 0.6 GIOVANNA drain 80 mL serosanguineous output PHYSICAL EXAM: VITAL SIGNS: Reviewed. GENERAL: Well-developed in no acute distress. ABDOMEN: Soft. nondistended. Tender at incision site. Intact prevana wound VAC . GIOVANNA drain with serosanguineous output NEUROLOGIC: Alert and oriented. Cranial nerves II through XII grossly intact. ASSESSMENT: 1. Perforated duodenal ulcer in the third portion of the duodenum with extensive right retroperitoneal inflammatory changes status post Exploratory laparotomy and Repair of duodenal ulcer with modified Jesús patch 2. Heroin abuse PLAN: -Clear liquid diet started this morning. We'll advance patient to full liquid diet Wednesday morning -Continue TPN for nutrition support -Continue IV Protonix -Continue antibiotics -Continue IV fluids -Continue pain management -Encouraged patient to use incentive spirometer -Encouraged patient to ambulate -DVT prophylaxis subcu heparin Physician Civil Engineering Teacher note has been reviewed by physician. Signing provider agrees with the documented findings, assessment, and plan of care. Objective - Vital Signs Vital signs: Vital Signs Temp 99 F 08/27/23 02:00 Pulse 67 08/27/23 02:00 Resp 14 08/27/23 02:00 BP 157/88 08/27/23 02:00 Pulse Ox 96 08/27/23 02:00 FiO2 40 08/24/23 08:52 Intake & Output 08/26/23 08/27/23 08/27/23 18:59 06:59 18:59 Intake Total 3581.6 5638 Output Total 1335 1730 Balance 2246.6 3908 Weight 101.6 kg Intake: IV 2604.0 4638 Amino Acid 5%-D20w+Lytes* 672 1728 E* 1,000 ml @ 96 mls/hr IV .BY DURATION [facility] Rx#: [id number] Fat Emulsion 20% 250 ml @ 102.0 20.833 mls/hr IV WeSa [facility] Rx#:[id number] Fluconazole in NaCl,Iso- 200 Osm 400 mg In Saline 1 200ml.bag @ 100 mls/hr IVPB DAILY [facility] Rx#: [id number] Invasive Line 1 10 10 Invasive Line 2 10 10 Invasive Line 3 10 10 Invasive Line 4 40 40 Levofloxacin 500Mg-D5w 100 Pmx 500 mg In Dextrose/ Water 1 100ml.bag @ 100 mls/hr IVPB Q24H [facility] Rx#: [id number] Magnesium Sulfate-D5w Pmx 100 1 gm In Dextrose/Water 1 100ml.bag @ 100 mls/hr IVPB ONCE ONE Rx#: [id number] Potassium Chloride 20 meq 200 In Water For Injection 1 100ml.bag @ 50 mls/hr IVPB Q2H [facility] Rx#: [id number] Potassium Chloride 20 meq 200 In Water For Injection 1 100ml.bag @ 50 mls/hr IVPB Q2H [facility] Rx#: [id number] Sodium Chloride 0.9% 1, 910 2340 000 ml @ 130 mls/hr IV . Q7H42M [facility] Rx#:[id number] Sodium Phosphate 30 mmol 250 In Dextrose 5% in Water 250 ml @ 65 mls/hr IVPB ONCE ONE Rx#:[id number] metroNIDAZOLE-NS PMX 500 100 200 mg In Saline 1 100ml.bag @ 100 mls/hr IVPB Q8HR [facility] Rx#:[id number] Intake, IV Titration 977.6 1000 Amount Amino Acid 5%-D20w+Lytes* 1000 E* 1,000 ml @ 96 mls/hr IV .BY DURATION [facility] Rx#: [id number] Mvi, Adult No.4 with Vit 977.6 0 K 10 ml Trace (Conc-1Ml/ Dose) 1 ml In Amino Acid 5%-D20w+Lytes*E* 1,000 ml @ 96 mls/hr IV .BY DURATION [facility] Rx#: [id number] Output: Drainage 120 80 Right Medial Abdomen 120 80 Urine 1215 1650 Other: Voiding Method Indwelling Catheter Indwelling Catheter # Voids 1 # Bowel Movements 0 - Labs CBC & Chem 7: 08/26/23 05:18 08/27/23 05:07 Labs: Abnormal Lab Results - Last 24 Hours (Table) 08/26/23 08/26/23 08/26/23 Range/Units 11:22 17:24 23:54 Sodium (137-145) mmol/L Chloride (98-107) mmol/L Carbon Dioxide (22-30) mmol/L POC Glucose (mg/dL) 137 H 135 H 119 H (70-110) mg/dL Calcium (8.4-10.2) mg/dL Total Protein (6.3-8.2) g/dL Albumin (3.5-5.0) g/dL 08/27/23 Range/Units 05:07 Sodium 134 L (137-145) mmol/L Chloride 108 H (98-107) mmol/L Carbon Dioxide 20 L (22-30) mmol/L POC Glucose (mg/dL) (70-110) mg/dL Calcium 7.2 L (8.4-10.2) mg/dL Total Protein 4.1 L (6.3-8.2) g/dL Albumin 2.0 L (3.5-5.0) g/dL Microbiology - Last 24 Hours (Table) 08/23/23 19:55 Gram Stain - Final Sputum Sputum Culture - Final 08/23/23 09:45 Blood Culture - Preliminary Blood 08/23/23 09:30 Blood Culture - Preliminary Blood
[2023-08-27] MEDS ORDERED: MAGNESIUM SULFATE-D5W PMX 1 GM in DEXTROSE/WATER 1 100ML.BAG IVPB ONE (10:30)
[2023-08-27] MEDS: ACETAMINOPHEN IV (For NPO) 1,000 MG in EMPTY BAG 1 BAG IVPB PRN ×2 (10:32→17:42)
[2023-08-27] MEDS: POTASSIUM BICARBONATE/CIT AC 20 MEQ TABLET.EFF NG-TUBE SCH ×2 (10:33→12:38)
[2023-08-27] MEDS: LEVOFLOXACIN 500MG-D5W PMX 500 MG in DEXTROSE/WATER 1 100ML.BAG IVPB SCH (10:33)
--- NOTE | 2023-08-27 10:58 | P.PN ---
Subjective Progress Note Date: 08/27/23 Principal diagnosis: Acute abdominal pain secondary to perforated duodenal ulcer in the third portion of duodenum with extensive right retroperitoneal inflammatory changes. Status post exploratory laparotomy with repair of duodenal ulcer with modified Jesús patch. Postoperative day #4 This is a 57-year-old male patient with a known history of daily heroin use who was in rehab for 3 days at [place] when he developed abdominal pain nausea and vomiting early this morning. He was having suprapubic pain and had not had any bowel movements. He noted some flecks of blood in his emesis. No previous history of ulcer. He had been taken Motrin. Denied any alcohol use. Computed tomography scan of the abdomen and pelvis did reveal pneumonia retroperitoneum with suspected gastric or duodenal perforation. Inflammatory changes identified involving the duodenum and proximal small bowel. Small amount of ascites identified through the abdomen and pelvis. He was taken urgently to the operating room and was found to have a perforated duodenal ulcer in the third portion of the duodenum with extensive right retroperitoneal inflammatory changes. He had repair of duodenal ulcer with modified Jesús patch. He was left intubated on mechanical ventilator and transferred to the intensive care unit where he is seen today in consultation. Current ventilator settings are assist-control mode at a rate of 18, tidal volume 500, FiO2 40% and a PEEP of 5. He is sedated with propofol at 50 mcg/kg/m. Currently requiring fentanyl 1.5 mcg/kg per hour. He is also receiving Dilaudid intermittently. He's been initiated on Levaquin and Flagyl. He has normal saline running at 130 ML's per hour. Arterial blood gases on 100% FiO2 revealed a pO2 greater than 400, pCO2 o f 40 and a pH of 7.32. White count 18.4. Hemoglobin 15.6. Platelets 289. Sodium 133. Potassium 3.8. Bicarb 18. BUN 21. Creatinine 0.96. Lactic acid 3.9. AST 39. ALT 40. Chest x-ray revealed endotracheal tube 5 cm above the amber. There is air seen in the upper mediastinum and overlying soft tissues of the neck correlate for pneumomediastinum. Patient was reevaluated today on 08/24/2023 patient remains intubated and mechanically ventilated. He is on assist control rate of 18 tidal volume 500 FiO2 40% PEEP of 5 ABG showed a pO2 of 147 pCO2 33 pH of 7.39. Patient is on IV fluid 0.9 normal saline at 13 0 mL per hour propofol at 30 mcg/kg/m and fentanyl 1.5 mcg/kg per hour. Patient is not requiring pressors at this point, he was hypotensive yesterday, received over 3 L of fluid boluses, urine output seems to be improving, and hemodynamically the patient didn't improve. We will give the patient more fluid boluses this morning to improve his urine output otherwise may have to challenge with a diuretic. Chest x-ray today was reviewed, seems to be unremarkable. Labs were all reviewed WBC 6.7 hemoglobin 15.1 sodium is 131 potassium 4.2, BUN is 27 creatinine 1.34. Reevaluated today on 08/25/23, patient was extubated yesterday, he is now on room air, seems to be very comfortable, patient had a PICC line placed yesterday for nutritional support/TPN. Patient is comfortable, he is not in any distress, doing relatively well with incentive spirometry. WBC count is 6.5 hemoglobin is 12 basic metabolic profile is normal bicarb is 19, renal profile is normal. No chest x-ray was felt to be necessary today. Patient was reevaluated today on 08/26/23, remains in the ICU, patient is presently on room air, his IV fluid is running at 1 30 mL per hour, remains on TPN, patient is on Diflucan Flagyl and Levaquin, seems to be recovering nicely from his recent surgery. Patient is on room air, does not seem to be in any distress. Labs today were reviewed a CBC is relatively normal, basic metabolic profile is normal, renal profile is normal, the plan is to transfer the patient in the ICU to a medical surgical floor likely today Patient is admitted today on 08/27/23, remains in the ICU, he is now postoperative day #4. Patient is doing great, relatively asymptomatic, he is on room air, still receiving TPN. Remains on fluconazole Levaquin and Flagyl. Patient denies any specific complaints, pain seems to be fairly under control. Basic metabolic profile today is normal and liver profile is normal. I am planning to transfer the patient out of the ICU to a regular medical floor he is actually now an overflow Objective - Vital Signs Vital signs: Vital Signs Temp 99 F 08/27/23 02:00 Pulse 67 08/27/23 02:00 Resp 14 08/27/23 02:00 BP 157/88 08/27/23 02:00 Pulse Ox 96 08/27/23 02:00 FiO2 40 08/24/23 08:52 Intake & Output 08/26/23 08/27/23 08/27/23 18:59 06:59 18:59 Intake Total 3581.6 5638 100 Output Total 1335 1730 Balance 2246.6 3908 100 Weight 101.6 kg Intake: IV 2604.0 4638 100 Amino Acid 5%-D20w+Lytes* 672 1728 E* 1,000 ml @ 96 mls/hr IV .BY DURATION [facility] Rx#: [id number] Fat Emulsion 20% 250 ml @ 102.0 20.833 mls/hr IV WeSa [facility] Rx#:[id number] Fluconazole in NaCl,Iso- 200 Osm 400 mg In Saline 1 200ml.bag @ 100 mls/hr IVPB DAILY [facility] Rx#: [id number] Invasive Line 1 10 10 Invasive Line 2 10 10 Invasive Line 3 10 10 Invasive Line 4 40 40 Levofloxacin 500Mg-D5w 100 100 Pmx 500 mg In Dextrose/ Water 1 100ml.bag @ 100 mls/hr IVPB Q24H [facility] Rx#: [id number] Magnesium Sulfate-D5w Pmx 100 1 gm In Dextrose/Water 1 100ml.bag @ 100 mls/hr IVPB ONCE ONE Rx#: [id number] Potassium Chloride 20 meq 200 In Water For Injection 1 100ml.bag @ 50 mls/hr IVPB Q2H [facility] Rx#: [id number] Potassium Chloride 20 meq 200 In Water For Injection 1 100ml.bag @ 50 mls/hr IVPB Q2H [facility] Rx#: [id number] Sodium Chloride 0.9% 1, 910 2340 000 ml @ 130 mls/hr IV . Q7H42M [facility] Rx#:[id number] Sodium Phosphate 30 mmol 250 In Dextrose 5% in Water 250 ml @ 65 mls/hr IVPB ONCE ONE Rx#:[id number] metroNIDAZOLE-NS PMX 500 100 200 mg In Saline 1 100ml.bag @ 100 mls/hr IVPB Q8HR [facility] Rx#:[id number] Intake, IV Titration 977.6 1000 Amount Amino Acid 5%-D20w+Lytes* 1000 E* 1,000 ml @ 96 mls/hr IV .BY DURATION [facility] Rx#: [id number] Mvi, Adult No.4 with Vit 977.6 0 K 10 ml Trace (Conc-1Ml/ Dose) 1 ml In Amino Acid 5%-D20w+Lytes*E* 1,000 ml @ 96 mls/hr IV .BY DURATION [facility] Rx#: [id number] Output: Drainage 120 80 Right Medial Abdomen 120 80 Urine 1215 1650 Other: Voiding Method Indwelling Catheter Indwelling Catheter # Voids 1 # Bowel Movements 0 - Exam Physical Exam: Revealed a 67-year-old white male calm, on room air, not in distress Head: Atraumatic, normocephalic. HEENT:[Neck is supple.] [No neck masses.] [No thyromegaly.] [No JVD.] Chest: [Clear throughout, no crackles, no rhonchi, no wheezes.] Cardiac Exam: [Normal S1 and S2, no S3 gallop, no murmur.] Abdomen: [Postsurgical. One VAC is noted. Soft, nontender, no megaly, no rebound, no guarding, no bowel sounds. Extremities: [No clubbing, no edema, no cyanosis.] Neurological Exam: [No focal neurologic deficit.] Alert oriented 3. Psychiatric: Normal mood affect and normal mental status examination. Skin: No rashes. - Labs CBC & Chem 7: 08/26/23 05:18 08/27/23 05:07 Labs: Abnormal Lab Results - Last 24 Hours (Table) 08/26/23 08/26/23 08/26/23 Range/Units 11:22 17:24 23:54 Sodium (137-145) mmol/L Chloride (98-107) mmol/L Carbon Dioxide (22-30) mmol/L POC Glucose (mg/dL) 137 H 135 H 119 H (70-110) mg/dL Calcium (8.4-10.2) mg/dL Total Protein (6.3-8.2) g/dL Albumin (3.5-5.0) g/dL 08/27/23 Range/Units 05:07 Sodium 134 L (137-145) mmol/L Chloride 108 H (98-107) mmol/L Carbon Dioxide 20 L (22-30) mmol/L POC Glucose (mg/dL) (70-110) mg/dL Calcium 7.2 L (8.4-10.2) mg/dL Total Protein 4.1 L (6.3-8.2) g/dL Albumin 2.0 L (3.5-5.0) g/dL Microbiology - Last 24 Hours (Table) 08/23/23 19:55 Gram Stain - Final Sputum Sputum Culture - Final 08/23/23 09:45 Blood Culture - Preliminary Blood 08/23/23 09:30 Blood Culture - Preliminary Blood Assessment and Plan Assessment: Impression: Acute abdominal pain secondary to perforated duodenal ulcer in the third portion of duodenum with extensive right retroperitoneal inflammatory changes. Status post exploratory laparotomy with repair of duodenal ulcer with modified Jesús patch. Postoperative day #4 Daily heroin abuse, currently residing at [facility] History of opioid abuse Recommendation: Continue present supportive care measures Continue TPN Continue incentive spirometry Continue pain medications Transfer patient to a medical surgical floor GI and DVT prophylaxis We will continue to follow. Time with Patient: Less than 30
[2023-08-27 11:53] LABS: Glucose,Whole Blood 127 mg/dL (70-110)
[2023-08-27 17:30] LABS: Glucose,Whole Blood 87 mg/dL (70-110)
[2023-08-27 23:59] LABS: Glucose,Whole Blood 131 mg/dL (70-110)
[2023-08-28] MEDS: INSULIN ASPART (NovoLOG) 100 UNIT/ML VIAL SQ SCH ×4 (00:24→19:42)
[2023-08-28] MEDS: ACETAMINOPHEN IV (For NPO) 1,000 MG in EMPTY BAG 1 BAG IVPB PRN ×2 (00:30→08:28)
[2023-08-28] MEDS: metroNIDAZOLE-NS PMX 500 MG in SALINE 1 100ML.BAG IVPB SCH ×4 (01:12→23:42)
[2023-08-28] MEDS: SODIUM CHLORIDE 0.9% 1,000 ML IV SCH ×4 (01:16→23:35)
[2023-08-28 06:06] LABS: Glucose,Whole Blood 126 mg/dL (70-110)
[2023-08-28] MEDS: PANTOPRAZOLE 40 MG/10 ML VIAL IVP SCH ×2 (08:31→20:16)
[2023-08-28] MEDS: HEPARIN SODIUM,PORCINE 5,000 UNIT/ML 1 ML VIAL SQ SCH ×2 (08:32→20:16)
[2023-08-28] MEDS: LEVOFLOXACIN 500MG-D5W PMX 500 MG in DEXTROSE/WATER 1 100ML.BAG IVPB SCH (09:44)
--- NOTE | 2023-08-28 10:04 | P.PN ---
Subjective Progress Note Date: 08/28/23 (Surgeon) Objective - Vital Signs Vital signs: Vital Signs Temp 98.5 F 08/28/23 08:00 Pulse 73 08/28/23 08:00 Resp 16 08/28/23 08:00 BP 163/80 08/28/23 08:00 Pulse Ox 95 08/28/23 08:00 FiO2 40 08/24/23 08:52 Intake & Output 08/27/23 08/28/23 08/28/23 18:59 06:59 18:59 Intake Total 3316 256 240 Output Total 2135 2975 250 Balance 1181 -2719 -10 Weight 101.6 kg Intake: IV 3316 256 ACETAMINOPHEN IV (For NPO 100 ) 1,000 mg In Empty Bag 1 bag @ 400 mls/hr IVPB Q6HR [facility] Rx#:[id number] Amino Acid 5%-D20w+Lytes* 960 E* 1,000 ml @ 96 mls/hr IV .BY DURATION [facility] Rx#: [id number] Fluconazole in NaCl,Iso- 200 Osm 400 mg In Saline 1 200ml.bag @ 100 mls/hr IVPB DAILY [facility] Rx#: [id number] Invasive Line 1 10 10 Invasive Line 2 10 10 Invasive Line 3 10 10 Levofloxacin 500Mg-D5w 200 Pmx 500 mg In Dextrose/ Water 1 100ml.bag @ 100 mls/hr IVPB Q24H [facility] Rx#: [id number] Magnesium Sulfate-D5w Pmx 200 1 gm In Dextrose/Water 1 100ml.bag @ 100 mls/hr IVPB ONCE ONE Rx#: [id number] Magnesium Sulfate-D5w Pmx 96 96 1 gm In Dextrose/Water 1 100ml.bag @ 100 mls/hr IVPB ONCE ONE Rx#: [id number] Sodium Chloride 0.9% 1, 1430 130 000 ml @ 130 mls/hr IV . Q7H42M [facility] Rx#:[id number] metroNIDAZOLE-NS PMX 500 100 mg In Saline 1 100ml.bag @ 100 mls/hr IVPB Q8HR [facility] Rx#:[id number] Oral 240 Output: Drainage 160 125 Anterior Abdomen 75 Right Medial Abdomen 160 50 Urine 1975 2850 250 Other: Voiding Method Urinal Urinal # Bowel Movements 1 - Labs CBC & Chem 7: 08/26/23 05:18 08/27/23 05:07 Labs: Abnormal Lab Results - Last 24 Hours (Table) 08/27/23 08/27/23 08/28/23 Range/Units 11:52 23:58 06:03 POC Glucose (mg/dL) 127 H 131 H 126 H (70-110) mg/dL Microbiology - Last 24 Hours (Table) 08/23/23 19:55 Gram Stain - Final Sputum Sputum Culture - Final
[2023-08-28 10:27] LABS: ALT 18 U/L (4-49); AST 26 U/L (17-59); African American GFR (CKD) >90 (>60 ml/min/1.73 sqM); Albumin 2.1 g/dL (3.5-5.0); Alkaline Phosphatase 43 U/L (38-126); Anion Gap 8 mmol/L; Blood Urea Nitrogen 14 mg/dL (9-20); Calcium 7.2 mg/dL (8.4-10.2); Carbon Dioxide 22 mmol/L (22-30); Chloride 101 mmol/L (98-107); Glucose 120 mg/dL (74-99); Magnesium 1.7 mg/dL (1.6-2.3); Non-African American GFR(CKD) >90 (>60 ml/min/1.73 sqM); Phosphorus 2.8 mg/dL (2.5-4.5); Potassium 3.4 mmol/L (3.5-5.1); Sodium 131 mmol/L (137-145); Total Bilirubin 0.7 mg/dL (0.2-1.3); Total Protein 4.5 g/dL (6.3-8.2)
[2023-08-28 11:59] LABS: Glucose,Whole Blood 139 mg/dL (70-110)
[2023-08-28] MEDS: HYDROmorphone 1 MG/ML 1 ML SYRINGE IVP PRN ×4 (12:33→23:41)
[2023-08-28] MEDS: FLUCONAZOLE IN NACL,ISO-OSM 400 MG in SALINE 1 200ML.BAG IVPB SCH (12:33)
--- NOTE | 2023-08-28 13:04 | P.PN ---
Subjective Progress Note Date: 08/28/23 Principal diagnosis: Acute abdominal pain secondary to perforated duodenal ulcer in the third portion of duodenum with extensive right retroperitoneal inflammatory changes. Status post exploratory laparotomy with repair of duodenal ulcer with modified Jesús patch. Postoperative day #5 This is a 57-year-old male patient with a known history of daily heroin use who was in rehab for 3 days at [facility] when he developed abdominal pain nausea and vomiting early this morning. He was having suprapubic pain and had not had any bowel movements. He noted some flecks of blood in his emesis. No previous history of ulcer. He had been taken Motrin. Denied any alcohol use. Computed tomography scan of the abdomen and pelvis did reveal pneumonia retroperitoneum with suspected gastric or duodenal perforation. Inflammatory changes identified involving the duodenum and proximal small bowel. Small amount of ascites identified through the abdomen and pelvis. He was taken urgently to the operating room and was found to have a perforated duodenal ulcer in the third portion of the duodenum with extensive right retroperitoneal inflammatory changes. He had repair of duodenal ulcer with modified Jesús patch. He was left intubated on mechanical ventilator and transferred to the intensive care unit where he is seen today in consultation. Current ventilator settings are assist-control mode at a rate of 18, tidal volume 500, FiO2 40% and a PEEP of 5. He is sedated with propofol at 50 mcg/kg/m. Currently requiring fentanyl 1.5 mcg/kg per hour. He is also receiving Dilaudid intermittently. He's been initiated on Levaquin and Flagyl. He has normal saline running at 130 ML's per hour. Arterial blood gases on 100% FiO2 revealed a pO2 greater than 400, pCO2 o f 40 and a pH of 7.32. White count 18.4. Hemoglobin 15.6. Platelets 289. Sodium 133. Potassium 3.8. Bicarb 18. BUN 21. Creatinine 0.96. Lactic acid 3.9. AST 39. ALT 40. Chest x-ray revealed endotracheal tube 5 cm above the amber. There is air seen in the upper mediastinum and overlying soft tissues of the neck correlate for pneumomediastinum. Patient was reevaluated today on 08/24/2023 patient remains intubated and mechanically ventilated. He is on assist control rate of 18 tidal volume 500 FiO2 40% PEEP of 5 ABG showed a pO2 of 147 pCO2 33 pH of 7.39. Patient is on IV fluid 0.9 normal saline at 13 0 mL per hour propofol at 30 mcg/kg/m and fentanyl 1.5 mcg/kg per hour. Patient is not requiring pressors at this point, he was hypotensive yesterday, received over 3 L of fluid boluses, urine output seems to be improving, and hemodynamically the patient didn't improve. We will give the patient more fluid boluses this morning to improve his urine output otherwise may have to challenge with a diuretic. Chest x-ray today was reviewed, seems to be unremarkable. Labs were all reviewed WBC 6.7 hemoglobin 15.1 sodium is 131 potassium 4.2, BUN is 27 creatinine 1.34. Reevaluated today on 08/25/23, patient was extubated yesterday, he is now on room air, seems to be very comfortable, patient had a PICC line placed yesterday for nutritional support/TPN. Patient is comfortable, he is not in any distress, doing relatively well with incentive spirometry. WBC count is 6.5 hemoglobin is 12 basic metabolic profile is normal bicarb is 19, renal profile is normal. No chest x-ray was felt to be necessary today. Patient was reevaluated today on 08/26/23, remains in the ICU, patient is presently on room air, his IV fluid is running at 1 30 mL per hour, remains on TPN, patient is on Diflucan Flagyl and Levaquin, seems to be recovering nicely from his recent surgery. Patient is on room air, does not seem to be in any distress. Labs today were reviewed a CBC is relatively normal, basic metabolic profile is normal, renal profile is normal, the plan is to transfer the patient in the ICU to a medical surgical floor likely today Patient is admitted today on 08/27/23, remains in the ICU, he is now postoperative day #4. Patient is doing great, relatively asymptomatic, he is on room air, still receiving TPN. Remains on fluconazole Levaquin and Flagyl. Patient denies any specific complaints, pain seems to be fairly under control. Basic metabolic profile today is normal and liver profile is normal. I am planning to transfer the patient out of the ICU to a regular medical floor he is actually now an overflow Reevaluated today on 08/28/23, patient is now postoperative day #5. Doing great, patient had a bowel movement today, relatively asymptomatic, hardly any pulmonary symptoms remains on room air. Pain seems to be well-controlled. Electrolytes showed slightly low sodium and low potassium being addressed accordingly otherwise his labs are unremarkable. Remains on fluconazole, Levaquin, and metronidazole. Objective - Vital Signs Vital signs: Vital Signs Temp 98.5 F 08/28/23 08:00 Pulse 76 08/28/23 12:44 Resp 16 08/28/23 12:44 BP 162/84 08/28/23 12:44 Pulse Ox 98 08/28/23 12:44 FiO2 40 08/24/23 08:52 Intake & Output 08/27/23 08/28/23 08/28/23 18:59 06:59 18:59 Intake Total 3316 256 670 Output Total 2135 2773 775 Balance 1181 -0466 -105 Weight 101.6 kg Intake: IV 3316 256 430 ACETAMINOPHEN IV (For NPO 100 ) 1,000 mg In Empty Bag 1 bag @ 400 mls/hr IVPB Q6HR [facility] Rx#:[id number] Amino Acid 5%-D20w+Lytes* 960 E* 1,000 ml @ 96 mls/hr IV .BY DURATION [facility] Rx#: [id number] Fluconazole in NaCl,Iso- 200 200 Osm 400 mg In Saline 1 200ml.bag @ 100 mls/hr IVPB DAILY [facility] Rx#: [id number] Invasive Line 1 10 10 10 Invasive Line 2 10 10 10 Invasive Line 3 10 10 10 Levofloxacin 500Mg-D5w 200 100 Pmx 500 mg In Dextrose/ Water 1 100ml.bag @ 100 mls/hr IVPB Q24H [facility] Rx#: [id number] Magnesium Sulfate-D5w Pmx 200 1 gm In Dextrose/Water 1 100ml.bag @ 100 mls/hr IVPB ONCE ONE Rx#: [id number] Magnesium Sulfate-D5w Pmx 96 96 1 gm In Dextrose/Water 1 100ml.bag @ 100 mls/hr IVPB ONCE ONE Rx#: [id number] Sodium Chloride 0.9% 1, 1430 130 000 ml @ 130 mls/hr IV . Q7H42M [facility] Rx#:[id number] metroNIDAZOLE-NS PMX 500 100 100 mg In Saline 1 100ml.bag @ 100 mls/hr IVPB Q8HR [facility] Rx#:[id number] Oral 240 Output: Drainage 160 125 125 Anterior Abdomen 75 75 Right Medial Abdomen 160 50 50 Urine 1975 2850 650 Other: Voiding Method Urinal Urinal Urinal # Bowel Movements 1 - Exam Physical Exam: Revealed a 67-year-old white male calm, on room air, not in distress Head: Atraumatic, normocephalic. HEENT:[Neck is supple.] [No neck masses.] [No thyromegaly.] [No JVD.] Chest: [Clear throughout, no crackles, no rhonchi, no wheezes.] Cardiac Exam: [Normal S1 and S2, no S3 gallop, no murmur.] Abdomen: [Postsurgical. One VAC is noted. Soft, nontender, no megaly, no rebound, no guarding, positive bowel sounds. Extremities: [No clubbing, no edema, no cyanosis.] Neurological Exam: [No focal neurologic deficit.] Alert oriented 3. Psychiatric: Normal mood affect and normal mental status examination. Skin: No rashes. - Labs CBC & Chem 7: 08/26/23 05:18 08/28/23 08:01 Labs: Abnormal Lab Results - Last 24 Hours (Table) 08/27/23 08/28/23 08/28/23 Range/Units 23:58 06:03 08:01 Sodium 131 L (137-145) mmol/L Potassium 3.4 L (3.5-5.1) mmol/L Creatinine 0.61 L (0.66-1.25) mg/dL Glucose 120 H (74-99) mg/dL POC Glucose (mg/dL) 131 H 126 H (70-110) mg/dL Calcium 7.2 L (8.4-10.2) mg/dL Total Protein 4.5 L (6.3-8.2) g/dL Albumin 2.1 L (3.5-5.0) g/dL 08/28/23 Range/Units 11:58 Sodium (137-145) mmol/L Potassium (3.5-5.1) mmol/L Creatinine (0.66-1.25) mg/dL Glucose (74-99) mg/dL POC Glucose (mg/dL) 139 H (70-110) mg/dL Calcium (8.4-10.2) mg/dL Total Protein (6.3-8.2) g/dL Albumin (3.5-5.0) g/dL Assessment and Plan Assessment: Impression: Acute abdominal pain secondary to perforated duodenal ulcer in the third portion of duodenum with extensive right retroperitoneal inflammatory changes. Status post exploratory laparotomy with repair of duodenal ulcer with modified Jesús patch. Postoperative day #5 Daily heroin abuse, currently residing at [facility] History of opioid abuse Recommendation: Continue present supportive care measures Patient is already on soft diet. Continue incentive spirometry Continue pain medications GI and DVT prophylaxis Possible discharge planning early next We will continue to follow. Time with Patient: Less than 30
[2023-08-28] MEDS ORDERED: MAGNESIUM SULFATE-D5W PMX 1 GM in DEXTROSE/WATER 1 100ML.BAG IVPB ONE (16:00)
[2023-08-28] MEDS: POTASSIUM CHLORIDE 20 MEQ in WATER FOR INJECTION 1 100ML.BAG IVPB SCH ×2 (16:48→20:06)
[2023-08-28 18:05] LABS: Glucose,Whole Blood 168 mg/dL (70-110)
[2023-08-28] MEDS: FAT EMULSION 20% 250 ML IV SCH (20:07)
[2023-08-28 23:47] LABS: Glucose,Whole Blood 124 mg/dL (70-110)
[2023-08-29] MEDS: HYDROmorphone 1 MG/ML 1 ML SYRINGE IVP PRN ×6 (02:02→21:25)
[2023-08-29] MEDS: INSULIN ASPART (NovoLOG) 100 UNIT/ML VIAL SQ SCH ×5 (05:01→23:54)
[2023-08-29 06:15] LABS: Glucose,Whole Blood 124 mg/dL (70-110)
[2023-08-29] MEDS: SODIUM CHLORIDE 0.9% 1,000 ML IV SCH ×3 (06:57→14:08)
[2023-08-29] MEDS: PANTOPRAZOLE 40 MG/10 ML VIAL IVP SCH ×2 (09:23→20:45)
[2023-08-29] MEDS: metroNIDAZOLE-NS PMX 500 MG in SALINE 1 100ML.BAG IVPB SCH ×3 (09:24→23:54)
[2023-08-29] MEDS: FLUCONAZOLE IN NACL,ISO-OSM 400 MG in SALINE 1 200ML.BAG IVPB SCH (09:24)
[2023-08-29] MEDS: LEVOFLOXACIN 500MG-D5W PMX 500 MG in DEXTROSE/WATER 1 100ML.BAG IVPB SCH (09:24)
[2023-08-29] MEDS: HEPARIN SODIUM,PORCINE 5,000 UNIT/ML 1 ML VIAL SQ SCH ×2 (09:24→20:45)
[2023-08-29 09:50] LABS: ALT 26 U/L (4-49); AST 30 U/L (17-59); African American GFR (CKD) >90 (>60 ml/min/1.73 sqM); Albumin 1.9 g/dL (3.5-5.0); Alkaline Phosphatase 48 U/L (38-126); Anion Gap 7 mmol/L; Blood Urea Nitrogen 14 mg/dL (9-20); Calcium 6.9 mg/dL (8.4-10.2); Carbon Dioxide 24 mmol/L (22-30); Chloride 98 mmol/L (98-107); Glucose 115 mg/dL (74-99); Magnesium 1.7 mg/dL (1.6-2.3); Non-African American GFR(CKD) >90 (>60 ml/min/1.73 sqM); Phosphorus 2.9 mg/dL (2.5-4.5); Potassium 3.6 mmol/L (3.5-5.1); Sodium 129 mmol/L (137-145); Total Bilirubin 0.4 mg/dL (0.2-1.3); Total Protein 4.1 g/dL (6.3-8.2)
--- NOTE | 2023-08-29 11:34 | P.PN ---
Subjective Progress Note Date: 08/29/23 Principal diagnosis: Duodenal ulcer Patient doing fairly well today. Tolerating clear liquids. No nausea. 2 bowel movement yesterday. He is afebrile. GIOVANNA drain is serous. Objective - Vital Signs Vital signs: Vital Signs Temp 98.5 F 08/28/23 08:00 Pulse 83 08/29/23 08:00 Resp 16 08/29/23 08:00 BP 151/84 08/29/23 08:00 Pulse Ox 94 L 08/29/23 01:15 EDT FiO2 40 08/24/23 08:52 Intake & Output 08/28/23 08/29/23 08/29/23 19:59 06:59 18:59 Intake Total 480 Output Total 100 Balance 380 Intake: IV Fluconazole in NaCl,Iso- Osm 400 mg In Saline 1 200ml.bag @ 100 mls/hr IVPB DAILY [facility] Rx#: [id number] Invasive Line 1 Invasive Line 2 Invasive Line 3 Levofloxacin 500Mg-D5w Pmx 500 mg In Dextrose/ Water 1 100ml.bag @ 100 mls/hr IVPB Q24H [facility] Rx#: [id number] metroNIDAZOLE-NS PMX 500 mg In Saline 1 100ml.bag @ 100 mls/hr IVPB Q8HR [facility] Rx#:[id number] Oral 480 Output: Drainage 100 Anterior Abdomen 100 Right Medial Abdomen Urine Other: Voiding Method # Voids # Bowel Movements - Exam Abdomen: Soft, nondistended, mild tenderness, dressing clean and dry - Labs CBC & Chem 7: 08/26/23 05:18 08/29/23 07:24 Labs: Abnormal Lab Results - Last 24 Hours (Table) 08/28/23 08/28/23 08/29/23 Range/Units 18:02 23:46 06:14 Sodium (137-145) mmol/L Glucose (74-99) mg/dL POC Glucose (mg/dL) 168 H 124 H 124 H (70-110) mg/dL Calcium (8.4-10.2) mg/dL Total Protein (6.3-8.2) g/dL Albumin (3.5-5.0) g/dL 08/29/23 Range/Units 07:24 Sodium 129 L (137-145) mmol/L Glucose 115 H (74-99) mg/dL POC Glucose (mg/dL) (70-110) mg/dL Calcium 6.9 L (8.4-10.2) mg/dL Total Protein 4.1 L (6.3-8.2) g/dL Albumin 1.9 L (3.5-5.0) g/dL Microbiology - Last 24 Hours (Table) 08/23/23 09:45 Blood Culture - Final Blood 08/23/23 09:30 Blood Culture - Final Blood Assessment and Plan (1) Pneumoperitoneum Narrative/Plan: 57-year-old male doing fairly well at this time. Continue antibiotics. C ontinue full liquids. Ambulate. Monitor GIOVANNA drain. Current Visit: Yes Status: Acute Code(s): K66.8 - OTHER SPECIFIED DISORDERS OF PERITONEUM SNOMED Code(s): 02162089
[2023-08-29 12:05] LABS: Glucose,Whole Blood 133 mg/dL (70-110)
[2023-08-29] MEDS: 1: MVI, ADULT NO.4 WITH VIT K 10 ML, TRACE (CONC-1ML/DOSE) 1 ML, SODIUM ACETATE 30 MEQ, IV SCH ×12 (12:15→23:51)
--- NOTE | 2023-08-29 13:55 | P.PN ---
Subjective Progress Note Date: 08/29/23 This is a 57-year-old male patient with a known history of daily heroin use who was in rehab for 3 days at [place] when he developed abdominal pain nausea and vomiting early this morning. He was having suprapubic pain and had not had any bowel movements. He noted some flecks of blood in his emesis. No previous history of ulcer. He had been taken Motrin. Denied any alcohol use. Computed tomography scan of the abdomen and pelvis did reveal pneumonia retroperitoneum with suspected gastric or duodenal perforation. Inflammatory changes identified involving the duodenum and proximal small bowel. Small amount of ascites identified through the abdomen and pelvis. He was taken urgently to the operating room and was found to have a perforated duodenal ulcer in the third portion of the duodenum with extensive right retroperitoneal inflammatory changes. He had repair of duodenal ulcer with modified Jesús patch. He was left intubated on mechanical ventilator and transferred to the intensive care unit where he is seen today in consultation. Current ventilator settings are assist-control mode at a rate of 18, tidal volume 500, FiO2 40% and a PEEP of 5. He is sedated with propofol at 50 mcg/kg/m. Currently requiring fentanyl 1.5 mcg/kg per hour. He is also receiving Dilaudid intermittently. He's been initiated on Levaquin and Flagyl. He has normal saline running at 130 ML's per hour. Arterial blood gases on 100% FiO2 revealed a pO2 greater than 400, pCO2 of 40 and a pH of 7.32. White count 18.4. Hemoglobin 15.6. Platelets 289. Sodium 133. Potassium 3.8. Bicarb 18. BUN 21. Creatinine 0.96. Lactic acid 3.9. AST 39. ALT 40. Chest x-ray revealed endotracheal tube 5 cm above the amber. There is air seen in the upper mediastinum and overlying soft tissues of the neck correlate for pneumomediastinum. Patient was reevaluated today on 08/24/2023 patient remains intubated and mechanically ventilated. He is on assist control rate of 18 tidal volume 500 FiO2 40% PEEP of 5 ABG showed a pO2 of 147 pCO2 33 pH of 7.39. Patient is on IV fluid 0.9 normal saline at 13 0 mL per hour propofol at 30 mcg/kg/m and fentanyl 1.5 mcg/kg per hour. Patient is not requiring pressors at this point, he was hypotensive yesterday, received over 3 L of fluid boluses, urine output seems to be improving, and hemodynamically the patient didn't improve. We will give the patient more fluid boluses this morning to improve his urine output otherwise may have to challenge with a diuretic. Chest x-ray today was reviewed, seems to be unremarkable. Labs were all reviewed WBC 6.7 hemoglobin 15.1 sodium is 131 potassium 4.2, BUN is 27 creatinine 1.34. Reevaluated today on 08/25/23, patient was extubated yesterday, he is now on room air, seems to be very comfortable, patient had a PICC line placed yesterday for nutritional support/TPN. Patient is comfortable, he is not in any distress, doing relatively well with incentive spirometry. WBC count is 6.5 hemoglobin is 12 basic metabolic profile is normal bicarb is 19, renal profile is normal. No chest x-ray was felt to be necessary today. Patient was reevaluated today on 08/26/23, remains in the ICU, patient is presen tly on room air, his IV fluid is running at 1 30 mL per hour, remains on TPN, patient is on Diflucan Flagyl and Levaquin, seems to be recovering nicely from his recent surgery. Patient is on room air, does not seem to be in any distress. Labs today were reviewed a CBC is relatively normal, basic metabolic profile is normal, renal profile is normal, the plan is to transfer the patient in the ICU to a medical surgical floor likely today Patient is admitted today on 08/27/23, remains in the ICU, he is now postoperative day #4. Patient is doing great, relatively asymptomatic, he is on room air, still receiving TPN. Remains on fluconazole Levaquin and Flagyl. Patient denies any specific complaints, pain seems to be fairly under control. Basic metabolic profile today is normal and liver profile is normal. I am planning to transfer the patient out of the ICU to a regular medical floor he is actually now an overflow Reevaluated today on 08/28/23, patient is now postoperative day #5. Doing great, patient had a bowel movement today, relatively asymptomatic, hardly any pulmonary symptoms remains on room air. Pain seems to be well-controlled. Electrolytes showed slightly low sodium and low potassium being addressed accordingly otherwise his labs are unremarkable. Remains on fluconazole, Levaquin, and metronidazole. The patient is seen today 08/29/2023 in follow-up on the selective care unit. Postoperative day #6. He is awake and alert in no acute distress. He is maintaining good O2 saturations in the 90s on room air. No shortness of breath, cough or congestion. He did have bowel movements yesterday. No abdominal discomfort. GIOVANNA drain remains in place with serous drainage. Tolerating a clear liquid diet. Remains on TPN and lipids for nutritional support. Blood cultures revealed no growth. Sputum culture revealed no growth. Sodium 129. Potassium 3.6. Bicarb 24. BUN 14. Creatinine 0.67. Glucose 115. He remains on Levaquin, fluconazole and Flagyl. Objective - Vital Signs Vital signs: Vital Signs Temp 98.5 F 08/28/23 08:00 Pulse 77 08/29/23 12:20 Resp 16 08/29/23 12:20 BP 155/91 08/29/23 12:20 Pulse Ox 96 08/29/23 12:20 FiO2 40 08/24/23 08:52 Intake & Output 08/28/23 08/29/23 08/29/23 19:59 06:59 18:59 Intake Total 510 Output Total 100 Balance 410 Intake: IV 30 Fluconazole in NaCl,Iso- Osm 400 mg In Saline 1 200ml.bag @ 100 mls/hr IVPB DAILY [facility] Rx#: [id number] Invasive Line 1 10 Invasive Line 2 10 Invasive Line 3 10 Levofloxacin 500Mg-D5w Pmx 500 mg In Dextrose/ Water 1 100ml.bag @ 100 mls/hr IVPB Q24H [facility] Rx#: [id number] metroNIDAZOLE-NS PMX 500 mg In Saline 1 100ml.bag @ 100 mls/hr IVPB Q8HR [facility] Rx#:[id number] Oral 480 Output: Drainage 100 Anterior Abdomen 100 Right Medial Abdomen Urine Other: Voiding Method Urinal # Voids # Bowel Movements - Exam GENERAL EXAM: Alert, pleasant 57-year-old male, on room air, fairly comfortable in no apparent distress. HEAD: Normocephalic. EYES: Normal reaction of pupils, equal size. NOSE: Clear with pink turbinates. THROAT: No erythema or exudates. NECK: No masses, no JVD. CHEST: No chest wall deformity. LUNGS: Equal air entry with no crackles, wheeze, rhonchi or dullness. CVS: S1 and S2 normal with no audible murmur, regular rhythm. ABDOMEN: GIOVANNA drain remains in place with serous fluid. Normal bowel sounds, no guarding or rigidity. SPINE: No scoliosis or deformity SKIN: No rashes CENTRAL NERVOUS SYSTEM: No focal deficits, tone is normal in all 4 extremities. EXTREMITIES: There is no peripheral edema. No clubbing, no cyanosis. Peripheral pulses are intact. - Labs CBC & Chem 7: 08/26/23 05:18 08/29/23 07:24 Labs: Abnormal Lab Results - Last 24 Hours (Table) 08/28/23 08/28/23 08/29/23 Range/Units 18:02 23:46 06:14 Sodium (137-145) mmol/L Glucose (74-99) mg/dL POC Glucose (mg/dL) 168 H 124 H 124 H (70-110) mg/dL Calcium (8.4-10.2) mg/dL Total Protein (6.3-8.2) g/dL Albumin (3.5-5.0) g/dL 08/29/23 08/29/23 Range/Units 07:24 12:03 Sodium 129 L (137-145) mmol/L Glucose 115 H (74-99) mg/dL POC Glucose (mg/dL) 133 H (70-110) mg/dL Calcium 6.9 L (8.4-10.2) mg/dL Total Protein 4.1 L (6.3-8.2) g/dL Albumin 1.9 L (3.5-5.0) g/dL Microbiology - Last 24 Hours (Table) 08/23/23 09:45 Blood Culture - Final Blood 08/23/23 09:30 Blood Culture - Final Blood Assessment and Plan Assessment: Acute abdominal pain secondary to perforated duodenal ulcer in the third portion of duodenum with extensive right retroperitoneal inflammatory changes. Status post exploratory laparotomy with repair of duodenal ulcer with modified Jesús patch. Postoperative day #6 Acute hypoxic respiratory failure secondary to above. Recovered and on room air Hyponatremia Daily heroin abuse, currently residing at [facility] History of opioid abuse Plan: Patient was seen and evaluated Labs and medications reviewed Half-normal saline at 75 ML's per hour Continue Flagyl and Diflucan and Levaquin Tolerating clear liquids, advance per surgical services We will continue to follow I have personally seen and examined the patient, performed the documentation and the assessment and plan as written. Number of minutes spent on the visit: 10.
[2023-08-29] MEDS ORDERED: MAGNESIUM SULFATE-D5W PMX 1 GM in DEXTROSE/WATER 1 100ML.BAG IVPB ONE (14:00)
[2023-08-29] MEDS ORDERED: POTASSIUM CHLORIDE 20 MEQ in WATER FOR INJECTION 1 100ML.BAG IVPB ONE (14:00)
[2023-08-29 18:01] LABS: Glucose,Whole Blood 126 mg/dL (70-110)
[2023-08-29 23:51] LABS: Glucose,Whole Blood 108 mg/dL (70-110)
[2023-08-30] MEDS: HYDROmorphone 1 MG/ML 1 ML SYRINGE IVP PRN ×4 (00:53→10:04)
[2023-08-30] MEDS: SODIUM CHLORIDE 0.9% 1,000 ML IV SCH ×2 (03:14→18:11)
[2023-08-30] MEDS: INSULIN ASPART (NovoLOG) 100 UNIT/ML VIAL SQ SCH ×3 (05:19→17:18)
[2023-08-30 05:20] LABS: Glucose,Whole Blood 130 mg/dL (70-110)
[2023-08-30 06:14] LABS: ALT 32 U/L (4-49); AST 37 U/L (17-59); African American GFR (CKD) >90 (>60 ml/min/1.73 sqM); Albumin/Globulin Ratio 0.9; Alkaline Phosphatase 56 U/L (38-126); Anion Gap 6 mmol/L; Blood Urea Nitrogen 16 mg/dL (9-20); Calcium 7.1 mg/dL (8.4-10.2); Carbon Dioxide 24 mmol/L (22-30); Chloride 98 mmol/L (98-107); Globulin 2.3 g/dL; Glucose 111 mg/dL (74-99); Magnesium 1.8 mg/dL (1.6-2.3); Non-African American GFR(CKD) >90 (>60 ml/min/1.73 sqM); Phosphorus 3.7 mg/dL (2.5-4.5); Sodium 128 mmol/L (137-145); Total Bilirubin 0.5 mg/dL (0.2-1.3); Total Protein 4.3 g/dL (6.3-8.2)
[2023-08-30] MEDS: HEPARIN SODIUM,PORCINE 5,000 UNIT/ML 1 ML VIAL SQ SCH ×2 (07:39→20:36)
[2023-08-30] MEDS: PANTOPRAZOLE 40 MG/10 ML VIAL IVP SCH ×2 (07:39→20:36)
[2023-08-30] MEDS: metroNIDAZOLE-NS PMX 500 MG in SALINE 1 100ML.BAG IVPB SCH ×2 (07:40→15:27)
[2023-08-30 08:21] LABS: HCT 28.6 % (39.6-50.0); MCH 29.7 pg (27.0-32.0); MCV 84.9 FL (80.0-97.0); Mean Platelet Volume 10.6 FL (9.5-12.2); NRBC Per 100 WBC 0 X 10*3/uL (0.00-0.01); Platelet Count 294 X 10*3/uL (140-440); RBC 3.37 X 10*6/uL (4.40-5.60); WBC 20.75 X 10*3/uL (4.50-10.00)
[2023-08-30 08:54] LABS: Basophils # (M) 0 X 10*3/uL (0.00-0.10); Eosinophils # (M) 0.21 X 10*3/uL (0.04-0.35); Lymphocytes # (M) 2.08 X 10*3/uL (0.90-5.00); Metamyelocytes % 1 % (0-0); Monocytes # (M) 1.66 X 10*3/uL (0.20-1.00); Myelocytes % 1 % (0-0); Neutrophils # (M) 16.39 X 10*3/uL (1.80-7.70); Neutrophils % (M) 79 %; RBC Morphology Normal (Normal)
[2023-08-30] MEDS: LEVOFLOXACIN 500MG-D5W PMX 500 MG in DEXTROSE/WATER 1 100ML.BAG IVPB SCH (10:03)
[2023-08-30] MEDS: FLUCONAZOLE IN NACL,ISO-OSM 400 MG in SALINE 1 200ML.BAG IVPB SCH (10:04)
[2023-08-30] MEDS ORDERED: ALPRAZolam 0.25 MG TAB PO PRN (10:24)
[2023-08-30] MEDS ORDERED: ACETAMINOPHEN TAB 500 MG TAB PO PRN (10:28)
[2023-08-30 11:01] LABS: Glucose,Whole Blood 125 mg/dL (70-110)
--- NOTE | 2023-08-30 12:36 | P.PN ---
Subjective Progress Note Date: 08/30/23 CHIEF COMPLAINT: Perforated duodenal ulcer HISTORY OF PRESENT ILLNESS: Patient is currently on a regular medical floor. He reports his pain is controlled. He is having bowel movements and flatus. He is tolerating full liquids. He is complaining mostly of his anxiety and not being able to sleep. Afebrile. WBC is up at 20.75 Hgb 10.0 platelets 294. Sodium is 128 potassium 4.0 creatinine 0.67 GIOVANNA drain 90 mL serous output PHYSICAL EXAM: VITAL SIGNS: Reviewed. GENERAL: Well-developed in no acute distress. ABDOMEN: Soft. nondistended. Tender at incision site. Intact prevana wound VAC . NEUROLOGIC: Alert and oriented. Cranial nerves II through XII grossly intact. ASSESSMENT: 1. Perforated duodenal ulcer in the third portion of the duodenum with extensive right retroperitoneal inflammatory changes status post Exploratory laparotomy and Repair of duodenal ulcer with modified Jesús patch 2. Heroin abuse 3. Hyponatremia PLAN: -Computed tomography scan abdomen and pelvis with contrast ordered due to increase in white count -Continue full liquid diet for now -Continue TPN for nutrition support for now -repeat CBC in AM -Consult medicine service for medical management -Continue IV Protonix -Continue antibiotics -Continue IV fluids -Add xanax for anxiety and melatonin for insomnia -Continue pain management -Encouraged patient to use incentive spirometer -Encouraged patient to ambulate -DVT prophylaxis subcu heparin Physician Fundraising Manager note has been reviewed by physician. Signing provider agrees with the documented findings, assessment, and plan of care. Objective - Vital Signs Vital signs: Vital Signs Temp 99.0 F 08/30/23 07:07 Pulse 78 08/30/23 07:07 Resp 18 08/30/23 07:07 BP 154/87 08/30/23 07:07 Pulse Ox 94 L 08/30/23 08:23 FiO2 40 08/24/23 08:52 Intake & Output 08/29/23 08/30/23 08/30/23 18:59 06:59 18:59 Intake Total 990 30 Output Total 1100 3240 Balance -110 -3210 Intake: IV 30 30 Invasive Line 1 10 10 Invasive Line 2 10 10 Invasive Line 3 10 10 Oral 960 Output: Drainage 150 140 Anterior Abdomen 150 140 Urine 950 3100 Other: Voiding Method Urinal Urinal Urinal # Voids 1 - Labs CBC & Chem 7: 08/30/23 05:19 08/30/23 05:19 Labs: Abnormal Lab Results - Last 24 Hours (Table) 08/29/23 08/29/23 08/30/23 Range/Units 12:03 17:58 05:19 WBC (4.50-10.00) X 10*3/uL RBC (4.40-5.60) X 10*6/uL Hgb (13.0-17.0) d/dL Hct (39.6-50.0) % Neutrophils # (Manual) (1.80-7.70) X 10*3/uL Monocytes # (Manual) (0.20-1.00) X 10*3/uL Sodium 128 L (137-145) mmol/L Glucose 111 H (74-99) mg/dL POC Glucose (mg/dL) 133 H 126 H (70-110) mg/dL Calcium 7.1 L (8.4-10.2) mg/dL Total Protein 4.3 L (6.3-8.2) g/dL Albumin 2.0 L (3.5-5.0) g/dL 08/30/23 08/30/23 Range/Units 05:19 05:19 WBC 20.75 H (4.50-10.00) X 10*3/uL RBC 3.37 L (4.40-5.60) X 10*6/uL Hgb 10.0 L (13.0-17.0) d/dL Hct 28.6 L (39.6-50.0) % Neutrophils # (Manual) 16.39 H (1.80-7.70) X 10*3/uL Monocytes # (Manual) 1.66 H (0.20-1.00) X 10*3/uL Sodium (137-145) mmol/L Glucose (74-99) mg/dL POC Glucose (mg/dL) 130 H (70-110) mg/dL Calcium (8.4-10.2) mg/dL Total Protein (6.3-8.2) g/dL Albumin (3.5-5.0) g/dL
[2023-08-30] MEDS: HYDROmorphone 0.5 MG/0.5 ML SYRINGE IVP PRN ×3 (13:52→20:47)
[2023-08-30] MEDS: IOPAMIDOL CONTRAST (ORAL USE) VIAL PO PRN ×2 (15:27→16:41)
[2023-08-30] MEDS ORDERED: ALPRAZolam 0.25 MG TAB PO SCH (16:00)
[2023-08-30 16:28] LABS: Glucose,Whole Blood 141 mg/dL (70-110)
[2023-08-30] MEDS: ALPRAZolam 0.25 MG TAB PO PRN (18:08)
[2023-08-30] MEDS: MELATONIN 3 MG TABLET PO SCH (20:36)
--- NOTE | 2023-08-30 21:56 | CT ---
EXAMINATION TYPE: CT abdomen pelvis w con DATE OF EXAM: 08/30/2023 COMPARISON: 08/23/2023 INDICATION: abdominal pain, elevated WBC DLP: 1449.5 mGycm, Automated exposure control for dose reduction was used. CONTRAST: 100 mL of Isovue 300. Study performed with Oral Contrast TECHNIQUE: Axial images were obtained from above the diaphragm to the pubic rami in the axial plane a t 5 mm thick sections. Reconstructed images are reviewed on the computer in the coronal plane. FINDINGS: Limited CT sections are obtained the lung bases. Small bilateral pleural effusions are present, grea ter on the left. Adjacent compressive atelectasis is present.. CT ABDOMEN: There is a large hypodense area with free air present suspicious for a left upper quadran t abscess. This may be in the retroperitoneum adjacent to the kidney. This measures 9.5 x 9.1 x 17.7 cm in size. Free air within the abdomen is not identified. There is a small amount fluid within the a bdomen. Small bowel Loops in the right abdomen appear to have thickened wall. Proximal ascending colo n has thickened bowel wall. Drainage catheter is in the right abdomen. Fluid is within the paracolic gutter on the right. Liver: Normal Spleen: Normal Pancreas: Normal Adrenal glands: The adrenal glands are normal. Gallbladder: Normal Kidneys: No masses are evident. No hydronephrosis is present. No cysts are present. Delayed images were obtained through the kidneys, which remain unremarkable. Aorta: Vascular calcification is within the aorta. Inferior vena cava: Normal. CT PELVIS: Appendix: Appendix is not identified. Urinary bladder: Normal. Genitourinary structures: Prostate appears normal. Osseous structures: No suspicious lytic or sclerotic lesions. COMPARISON: The area of suspected abscess in the left perinephric space is diminished over the interv al. The free air in the retroperitoneum has largely resolved. Fluid in the right paracolic gutter is diminished. The retroperitoneal air present bilaterally previously is diminished. Fluid collection in the left perinephric space is increasing over the interval. Report was called to Stefanie, the patient's nurse, at the time of final interpretation. IMPRESSION: 1. There appears be a large abscess with fluid and air likely within the retroperitoneal region. Thi s area covers 9 x 9 x 17 cm adjacent to the anterior border of the left kidney. 2. Drainage catheter in the right paracolic gutter with a small amount of fluid remaining within the paracolic gutter. This fluid is diminished from the comparison.
[2023-08-31] MEDS: HYDROmorphone 0.5 MG/0.5 ML SYRINGE IVP PRN ×4 (00:15→09:49)
[2023-08-31] MEDS: metroNIDAZOLE-NS PMX 500 MG in SALINE 1 100ML.BAG IVPB SCH ×3 (00:15→16:19)
[2023-08-31] MEDS: ALPRAZolam 0.25 MG TAB PO PRN ×3 (00:15→20:49)
[2023-08-31] MEDS: INSULIN ASPART (NovoLOG) 100 UNIT/ML VIAL SQ SCH ×4 (00:19→16:40)
[2023-08-31 00:20] LABS: Glucose,Whole Blood 127 mg/dL (70-110)
--- NOTE | 2023-08-31 00:52 | P.CONS ---
History of Present Illness - Reason for Consult Consult date: 08/30/23 Medical management - Chief Complaint Abdominal pain - History of Present Illness Patient is a 57-year-old male without significant past medical history presents to ER with complaints of abdominal pain along with nausea vomiting started 1 day prior to admission. Patient was admitted to the hospital on 08/23/2023. Apparently patient has been taking Motrin on a daily basis for his back and foot pain. Patient has been at [facility] for heroin abuse for the past 3 days. Denies any fever or chills. No chest pain or shortness of breath. CT of the abdomen pelvis on admission showed pneumoretroperitoneum with suspected gastric or duodenal perforation. Inflammatory changes identified invo lving the duodenum and proximal small bowel. Small bowel of ascites identified closely abdominal pelvis. Patient underwent exploratory laparotomy and repair of duodenal ulcer with modified Jesús patch on 08/23/2023. Patient is in the MedSurg unit currently. Postoperative day 6. His abdominal pain is controlled with medications. Was started on full liquid diet. Patient is also having liquid stools and passing flatus. Patient is also currently managed on TPN. Also on antibiotics Levaquin and Flagyl. Laboratory data showed WBC went up to 20.7, hemoglobin 10.0 with platelets 294 Sodium 128 potassium 4.0 chloride 98 bicarb is 24 BUN 16 creatinine 0.67 and blood sugar 117 calcium 7.1. Liver enzymes are not elevated. Repeat CT of the abdomen pelvis was ordered today. Review of Systems Constitutional: Patient denies any fever or chills . no Generalized weakness. Abdomen: Patient denied any nausea or vomiting. Patient does have abd. pain Cardiovascular: Patient denies any chest pain or short of breath no palpitations. No leg swelling. Respiratory: patient denied any cough . no sputum production. No shortness of breath Neurologic: Patient denied any numbness or tingling or headache. Musculoskeletal: Patient denies any complaints of joint swelling or deformity. Skin: Negative Psychiatric: Negative Endocrine: No heat or cold intolerance. No recent weight gain. Genitourinary: No dysuria or hematuria. All other 14 point ROS negative except the above Past Medical History Past Medical History: No Reported History History of Any Multi-Drug Resistant Organisms: None Reported Past Surgical History: Orthopedic Surgery Past Psychological History: No Psychological Hx Reported Smoking Status: Never smoker Past Alcohol Use History: Occasional Past Drug Use History: Heroin, Opiates Medications and Allergies Home Medications Medication Instructions Recorded Confirmed Type Acetaminophen Tab [Tylenol] 650 mg PO QID PRN MDD 4 doses 08/23/23 08/23/23 History Calcium/Mag/Zinc/D3 1 tab PO TID 08/23/23 08/23/23 History Chlorpheniramine Maleate 4 mg PO Q4H PRN MDD 4 doses 08/23/23 08/23/23 History [Chlor-Trimeton] Ibuprofen [Motrin Ib] 600 mg PO Q6H PRN 08/23/23 08/23/23 History Loperamide [Imodium] 2 - 4 mg PO QID PRN MDD 4 doses 08/23/23 08/23/23 History Melatonin 5 mg PO HS 08/23/23 08/23/23 History Multivitamins, Thera [Multivitamin 1 tab PO DAILY 08/23/23 08/23/23 History (formulary)] Mylanta 30 ml PO Q4H PRN 08/23/23 08/23/23 History Thiamine [Vitamin B-1] 100 mg PO DAILY PRN 08/23/23 08/23/23 History cloNIDine HCL [Catapres] 0.1 - 0.3 mg PO Q4HR PRN 08/23/23 08/23/23 History cloNIDine HCL [Catapres] 0.1 mg PO Q4H PRN 08/23/23 08/23/23 History Allergies Allergy/AdvReac Type Severity Reaction Status Date / Time Penicillins AdvReac Abdominal Verified 08/23/23 10:17 Pain Physical Exam Vitals: Vital Signs Temp Pulse Pulse Resp BP Pulse Ox 08/30/23 13:46 98.6 F 97 20 187/90 99 08/30/23 08:23 94 L 08/30/23 07:07 99.0 F 78 18 154/87 94 L 08/30/23 01:10 98.5 F 83 18 156/80 95 08/29/23 20:00 98.8 F 81 16 163/83 98 Intake and Output 08/30/23 08/30/23 08/30/23 06:59 14:59 22:59 Output Total 3190 1440 920 Balance -3190 -1440 -920 Output: Drainage 90 40 20 Anterior Abdomen 90 Right Medial Abdomen 40 20 Urine 3100 1400 900 Other: Voiding Method Urinal # Voids 1 2 Weight 101.6 kg PHYSICAL EXAMINATION: Patient is lying in the bed comfortably, no acute distress, awake alert and oriented.. HEENT: Normocephalic. Neck is supple. Pupils reactive. Nostrils clear. Oral cavity is moist. Neck reveals no JVD, carotid bruits, or thyromegaly. CHEST EXAMINATION: Trachea is central. Symmetrical expansion. Bibasilar diminished sounds.. CARDIAC: Normal S1, S2 with no gallops. No murmurs ABDOMEN: Soft. Bowel sounds present. Mild tenderness at the surgical site. Wound VAC in place.. No organomegaly. No abdominal bruits. Extremities: reveal no edema. No clubbing or cyanosis Neurologically awake, alert, oriented x3 with well-coordinated movements. No focal deficits noted Skin: No rash or skin lesions. Psychiatric: Coperative. Nonsuicidal, anxious. Musculoskeletal: No joint swelling or deformity. Results CBC & Chem 7: 08/30/23 05:19 08/30/23 05:19 Labs: Abnormal Lab Results - Last 24 Hours (Table) 08/30/23 08/30/23 08/30/23 Range/Units 05:19 05:19 05:19 WBC 20.75 H (4.50-10.00) X 10*3/uL RBC 3.37 L (4.40-5.60) X 10*6/uL Hgb 10.0 L (13.0-17.0) d/dL Hct 28.6 L (39.6-50.0) % Neutrophils # (Manual) 16.39 H (1.80-7.70) X 10*3/uL Monocytes # (Manual) 1.66 H (0.20-1.00) X 10*3/uL Sodium 128 L (137-145) mmol/L Glucose 111 H (74-99) mg/dL POC Glucose (mg/dL) 130 H (70-110) mg/dL Calcium 7.1 L (8.4-10.2) mg/dL Total Protein 4.3 L (6.3-8.2) g/dL Albumin 2.0 L (3.5-5.0) g/dL 08/30/23 08/30/23 Range/Units 11: 16:26 WBC (4.50-10.00) X 10*3/uL RBC (4.40-5.60) X 10*6/uL Hgb (13.0-17.0) d/dL Hct (39.6-50.0) % Neutrophils # (Manual) (1.80-7.70) X 10*3/uL Monocytes # (Manual) (0.20-1.00) X 10*3/uL Sodium (137-145) mmol/L Glucose (74-99) mg/dL POC Glucose (mg/dL) 125 H 141 H (70-110) mg/dL Calcium (8.4-10.2) mg/dL Total Protein (6.3-8.2) g/dL Albumin (3.5-5.0) g/dL Assessment and Plan Assessment: Perforated duodenal ulcer in the third portion of duodenum with extensive right retroperitoneal inflammatory changes. Status post expiratory laparotomy with repair of duodenal ulcer with modified Jesús patch on 08/23/2023 Worsening leukocytosis Acute hypoxic respiratory failure secondary to above. Patient was titrated down to room air currently. Hyponatremia likely due to decreased oral intake. Uncontrolled blood pressure Abuse. [facility] to [facility]. Opiate abuse. GI and DVT prophylaxis. Patient is on PPI IV and also on heparin subcu. Plan: Patient will be continued on IV hydration with normal saline. Patient is also on TPN and also tolerating full liquid diet. Due to worsening leukocytosis., CT of the abdomen pelvis was ordered. We will add Norvasc 5 mg daily and titrate blood pressure medications as tolerated. Continue with PPI IV twice daily. Chronic pain management, incentive spirometry and encourage ambulation. Ordered urine sodium, protein creatinine and osmolality. Follow-up CBC and BMP tomorrow. Further recommendations based on clinical course. Thank you kindly for your consult. Time with Patient: Greater than 30
[2023-08-31 06:06] LABS: Glucose,Whole Blood 148 mg/dL (70-110)
[2023-08-31 06:33] LABS: Ionized Calcium 4.6 mg/dL (4.5-5.3)
[2023-08-31 06:41] LABS: African American GFR (CKD) >90 (>60 ml/min/1.73 sqM); Anion Gap 8 mmol/L; Blood Urea Nitrogen 17 mg/dL (9-20); Calcium 7.8 mg/dL (8.4-10.2); Carbon Dioxide 26 mmol/L (22-30); Chloride 98 mmol/L (98-107); Glucose 124 mg/dL (74-99); Non-African American GFR(CKD) >90 (>60 ml/min/1.73 sqM); Phosphorus 4.7 mg/dL (2.5-4.5); Potassium 4.5 mmol/L (3.5-5.1); Sodium 132 mmol/L (137-145)
[2023-08-31] MEDS: SODIUM CHLORIDE 0.9% 1,000 ML IV SCH ×2 (06:45→22:06)
[2023-08-31] MEDS: HEPARIN SODIUM,PORCINE 5,000 UNIT/ML 1 ML VIAL SQ SCH ×2 (08:54→16:19)
[2023-08-31] MEDS: amLODIPine 5 MG TAB PO SCH (08:55)
[2023-08-31] MEDS: PANTOPRAZOLE 40 MG/10 ML VIAL IVP SCH ×2 (08:55→20:49)
[2023-08-31] MEDS: FLUCONAZOLE IN NACL,ISO-OSM 400 MG in SALINE 1 200ML.BAG IVPB SCH (08:56)
[2023-08-31 09:01] LABS: Basophils # (A) 0.07 X 10*3/uL (0.00-0.10); Basophils % (A) 0.3 %; Eosinophils # (A) 0.45 X 10*3/uL (0.04-0.35); Eosinophils % (A) 2.2 %; HCT 30.5 % (39.6-50.0); HGB 10.5 d/dL (13.0-17.0); Lymphocytes # (A) 1.74 X 10*3/uL (0.90-5.00); Lymphocytes % (A) 8.6 %; MCH 29.4 pg (27.0-32.0); MCHC 34.4 d/dL (32.0-37.0); MCV 85.4 FL (80.0-97.0); Mean Platelet Volume 10.5 FL (9.5-12.2); Monocytes # (A) 1.21 X 10*3/uL (0.20-1.00); NRBC Per 100 WBC 0 X 10*3/uL (0.00-0.01); Neutrophils % (A) 78.8 %; Platelet Count 344 X 10*3/uL (140-440); RBC 3.57 X 10*6/uL (4.40-5.60); RDW 14.5 % (11.5-14.5); WBC 20.31 X 10*3/uL (4.50-10.00)
[2023-08-31] MEDS ORDERED: HYDROmorphone 0.5 MG/0.5 ML SYRINGE IVP PRN (10:12)
--- NOTE | 2023-08-31 10:44 | P.PN ---
Subjective Progress Note Date: 08/31/23 CHIEF COMPLAINT: Perforated duodenal ulcer HISTORY OF PRESENT ILLNESS: Patient sitting at bedside chair. Patient reports that his abdominal pain is feeling better. He denies any nausea or vomiting. Last BM 2 days ago. Afebrile. WBC remains elevated at 20.3 hgb 10.5 sodium 132 creatinine 0.6 GIOVANNA drain 80ml serous output. Computed tomography scan abdomen and pelvis reports there appears to be a large abscess with fluid and air likely within the retroperitoneal region. The area covers 9 x 9 x 17 cm adjacent to the anterior border of the left kidney. Medicine service consult appreciated. Patient seen by infectious disease service and IV antibiotics adjusted. PHYSICAL EXAM: VITAL SIGNS: Reviewed. GENERAL: Well-developed in no acute distress. ABDOMEN: Soft. nondistended. minimal tenderness at incision site. Intact prevana wound VAC . GIOVANNA drain serous NEUROLOGIC: Alert and oriented. Cranial nerves II through XII grossly intact. ASSESSMENT: 1. Perforated duodenal ulcer in the third portion of the duodenum with extensive right retroperitoneal inflammatory changes status post Exploratory laparotomy and Repair of duodenal ulcer with modified Jesús patch 2. Heroin abuse 3. Hyponatremia PLAN: -Reviewed computed tomography scan abdomen findings with Dr. Panchal. He did not feel for sure that this was an abscess. Patient is afebrile and he is not tachycardic. His pain is improving. -Continue to observe -Continue full liquid diet -wean off TPN -repeat CBC in AM -Add [place] for oral pain medication and try to wean patient off the IV Dilaudid -Hyponatremia management per medicine service -Continue IV Protonix -Continue antibiotics -Continue pain management -Encouraged patient to use incentive spirometer -Encouraged patient to ambulate -DVT prophylaxis subcu heparin Physician Wheel Molder note has been reviewed by physician. Signing provider agrees with the documented findings, assessment, and plan of care. Objective - Vital Signs Vital signs: Vital Signs Temp 98.3 F 08/31/23 07:37 Pulse 74 08/31/23 07:37 Resp 17 08/31/23 07:37 BP 153/94 08/31/23 07:37 Pulse Ox 95 08/31/23 07:37 FiO2 40 08/24/23 08:52 Intake & Output 08/30/23 08/31/23 08/31/23 18:59 06:59 18:59 Intake Total 1054.5 Output Total 2360 3560 Balance -2360 -2505.5 Weight 101.6 kg Intake: Intake, IV Titration 1054.5 Amount Mvi, Adult No.4 with Vit 1054.5 K 10 ml Trace (Conc-1Ml/ Dose) 1 ml Sodium Acetate 54 meq Potassium Acetate 30 meq Magnesium Sulfate gm 0.75 gm In Amino Acid 5%-D20w+Lytes*E* 1,000 ml @ 96 mls/hr IV .BY DURATION [facility] Rx#: [id number] Output: Drainage 60 60 Right Medial Abdomen 60 60 Urine 2300 3500 Other: Voiding Method Urinal Urinal # Voids 2 - Labs CBC & Chem 7: 08/31/23 06:11 08/31/23 06:11 Labs: Abnormal Lab Results - Last 24 Hours (Table) 08/30/23 08/30/23 08/31/23 Range/Units 11:00 16:26 00:19 WBC (4.50-10.00) X 10*3/uL RBC (4.40-5.60) X 10*6/uL Hgb (13.0-17.0) d/dL Hct (39.6-50.0) % Neutrophils # (1.80-7.70) X 10*3/uL Monocytes # (0.20-1.00) X 10*3/uL Eosinophils # (0.04-0.35) X 10*3/uL Sodium (137-145) mmol/L Glucose (74-99) mg/dL POC Glucose (mg/dL) 125 H 141 H 127 H (70-110) mg/dL Osmolality (280-301) mosm/kg Calcium (8.4-10.2) mg/dL Phosphorus (2.5-4.5) mg/dL 08/31/23 08/31/23 08/31/23 Range/Units 06:05 06:11 06:11 WBC 20.31 H (4.50-10.00) X 10*3/uL RBC 3.57 L (4.40-5.60) X 10*6/uL Hgb 10.5 L (13.0-17.0) d/dL Hct 30.5 L (39.6-50.0) % Neutrophils # 16.00 H (1.80-7.70) X 10*3/uL Monocytes # 1.21 H (0.20-1.00) X 10*3/uL Eosinophils # 0.45 H (0.04-0.35) X 10*3/uL Sodium 132 L (137-145) mmol/L Glucose 124 H (74-99) mg/dL POC Glucose (mg/dL) 148 H (70-110) mg/dL Osmolality 278 L (280-301) mosm/kg Calcium 7.8 L (8.4-10.2) mg/dL Phosphorus 4.7 H (2.5-4.5) mg/dL
[2023-08-31] MEDS: CEFEPIME 2 GM in SODIUM CHLORIDE 0.9% 100 ML IVPB SCH ×2 (11:01→17:34)
[2023-08-31] MEDS: LEVOFLOXACIN 500MG-D5W PMX 500 MG in DEXTROSE/WATER 1 100ML.BAG IVPB SCH (11:04)
[2023-08-31 11:25] LABS: Glucose,Whole Blood 148 mg/dL (70-110)
[2023-08-31 11:34] LABS: Creatinine,Urine Random 17.1 mg/dL (39.0-259.0); Total Protein,Urine Random 6.6 mg/dL (0.0-13.5)
[2023-08-31] MEDS: HYDROcodone/APAP 5-325MG 1 EACH TAB PO PRN ×3 (13:38→22:01)
[2023-08-31 16:19] LABS: Glucose,Whole Blood 133 mg/dL (70-110)
[2023-08-31] MEDS: 1: MVI, ADULT NO.4 WITH VIT K 10 ML, TRACE (CONC-1ML/DOSE) 1 ML, PARENTERAL ELECTROLYTES IV SCH ×7 (18:55)
[2023-08-31 21:15] LABS: Glucose,Whole Blood 123 mg/dL (70-110)
[2023-08-31] MEDS: MELATONIN 3 MG TABLET PO SCH (22:01)
--- NOTE | 2023-08-31 22:55 | P.CONS ---
History of Present Illness - Reason for Consult Consult date: 08/31/23 Retroperitoneal abscess Requesting physician: Maryann Li - Chief Complaint Abdominal pain x few days - History of Present Illness Patient is a 57-year-old male with a past medical history significant for opiate and drug use in the past presenting to the hospital about a week ago for evaluation of abdominal pain and nausea and vomiting patient apparently was sent from [place] for his above symptoms patient on presentation to the hospital was afebrile and no fever have recorded during his hospital stay patient did have white count of 18.4 admission that has subsequently normalized however the white count is trending up over the last 2 days patient did have normal kidney function urine has been negative patient did have a abdominal pelvis CT with pneumoperitoneum suspected gastric or duodenal perforation patient was evaluated general surgery taken to the OR noticed to have perforated duodenal ulcer with extensor retroperitoneal inflammatory changes status post expiratory laparotomy repair of the adrenal ulcer with modified Jesús patch pat ient did have blood cultures have been negative in the OR cultures were done sputum done on 1030 was negative patient did have a repeat CT because of his worsening white count and noticed to have evidence of large abscess with fluid and air in the retroperitoneal region that has prompted this infectious disease consultation patient is currently combination of Levaquin and Flagyl because of his penicillin allergy which is basically abdominal pain patient still complaining of pain to the lower abdominal and pelvic area more of a dull aching to sharp moderate intensity without radiation some nausea but no vomiting no chest pain shortness of breath or cough Review of Systems Positive point and negatives has been mentioned in the HPI, complete review of systems was performed and all other systems are negative Past Medical History Past Medical History: No Reported History History of Any Multi-Drug Resistant Organisms: None Reported Past Surgical History: Orthopedic Surgery Past Psychological History: No Psychological Hx Reported Smoking Status: Never smoker Past Alcohol Use History: Occasional Past Drug Use History: Heroin, Opiates Medications and Allergies Home Medications Medication Instructions Recorded Confirmed Type Acetaminophen Tab [Tylenol] 650 mg PO QID PRN MDD 4 doses 08/23/23 08/23/23 History Calcium/Mag/Zinc/D3 1 tab PO TID 08/23/23 08/23/23 History Chlorpheniramine Maleate 4 mg PO Q4H PRN MDD 4 doses 08/23/23 08/23/23 History [Chlor-Trimeton] Ibuprofen [Motrin Ib] 600 mg PO Q6H PRN 10/30/23 10/30/23 History Loperamide [Imodium] 2 - 4 mg PO QID PRN MDD 4 doses 08/23/23 08/23/23 History Melatonin 5 mg PO HS 08/23/23 08/23/23 History Multivitamins, Thera [Multivitamin 1 tab PO DAILY 08/23/23 08/23/23 History (formulary)] Mylanta 30 ml PO Q4H PRN 08/23/23 08/23/23 History Thiamine [Vitamin B-1] 100 mg PO DAILY PRN 08/23/23 08/23/23 History cloNIDine HCL [Catapres] 0.1 - 0.3 mg PO Q4HR PRN 08/23/23 08/23/23 History cloNIDine HCL [Catapres] 0.1 mg PO Q4H PRN 08/23/23 08/23/23 History Allergies Allergy/AdvReac Type Severity Reaction Status Date / Time Penicillins AdvReac Abdominal Verified 08/23/23 10:17 Pain Physical Exam Vitals: Vital Signs Temp Pulse Pulse Resp BP Pulse Ox 08/31/23 07:37 98.3 F 74 17 153/94 95 08/31/23 01:37 98.3 F 85 16 136/78 97 08/30/23 20:00 98.4 F 90 17 157/85 97 08/30/23 13:46 98.6 F 97 20 187/90 99 Intake and Output 08/30/23 08/31/23 08/31/23 22:59 06:59 14:59 Intake Total 1054.5 Output Total 2680 1800 Balance -1625.5 -1800 Intake: Intake, IV Titration 1054.5 Amount Mvi, Adult No.4 with Vit 1054.5 K 10 ml Trace (Conc-1Ml/ Dose) 1 ml Sodium Acetate 54 meq Potassium Acetate 30 meq Magnesium Sulfate gm 0.75 gm In Amino Acid 5%-D20w+Lytes*E* 1,000 ml @ 96 mls/hr IV .BY D[facility]ATION [facility] Rx#: [id number] Output: Drainage 80 Right Medial Abdomen 80 Urine 2600 1800 Other: Voiding Method Urinal GENERAL DESCRIPTION: Middle-aged male lying in bed, no distress. No tachypnea or accessory muscle of respiration use. HEENT: Shows Pallor , no scleral icterus. Oral mucous membrane is dry. No pharyngeal erythema or thrush NECK: Trachea central, no thyromegaly. LUNGS: Unlabored breathing. Clear to auscultation anteriorly. No wheeze or crackle. HEART: S1, S2, regular rate and rhythm. No loud murmur ABDOMEN: Soft, mild tenderness EXTREMITIES: No edema of feet. SKIN: No rash, no masses palpable. NEUROLOGICAL: The patient is awake, alert, oriented x3, mood and affect normal. Results CBC & Chem 7: 08/31/23 06:11 08/31/23 06:11 Labs: Abnormal Lab Results - Last 24 Hours (Table) 08/30/23 08/30/23 08/31/23 Range/Units 11:00 16:26 00:19 WBC (4.50-10.00) X 10*3/uL RBC (4.40-5.60) X 10*6/uL Hgb (13.0-17.0) d/dL Hct (39.6-50.0) % Neutrophils # (1.80-7.70) X 10*3/uL Monocytes # (0.20-1.00) X 10*3/uL Eosinophils # (0.04-0.35) X 10*3/uL Sodium (137-145) mmol/L Glucose (74-99) mg/dL POC Glucose (mg/dL) 125 H 141 H 127 H (70-110) mg/dL Osmolality (280-301) mosm/kg Calcium (8.4-10.2) mg/dL Phosphorus (2.5-4.5) mg/dL 08/31/23 08/31/23 08/31/23 Range/Units 06:05 06:11 06:11 WBC 20.31 H (4.50-10.00) X 10*3/uL RBC 3.57 L (4.40-5.60) X 10*6/uL Hgb 10.5 L (13.0-17.0) d/dL Hct 30.5 L (39.6-50.0) % Neutrophils # 16.00 H (1.80-7.70) X 10*3/uL Monocytes # 1.21 H (0.20-1.00) X 10*3/uL Eosinophils # 0.45 H (0.04-0.35) X 10*3/uL Sodium 132 L (137-145) mmol/L Glucose 124 H (74-99) mg/dL POC Glucose (mg/dL) 148 H (70-110) mg/dL Osmolality 278 L (280-301) mosm/kg Calcium 7.8 L (8.4-10.2) mg/dL Phosphorus 4.7 H (2.5-4.5) mg/dL Assessment and Plan (1) Retroperitoneal abscess Current Visit: Yes Status: Acute Code(s): K68.19 - OTHER RETROPERITONEAL ABSCESS SNOMED Code(s): 36674120 Plan: 1patient presented to hospital about a week ago in this patient with abdominal pain found to have perforated duodenal ulcer status post laparotomy and modified Jesús patch now with evidence of worsening white count and the CT showing a large retroperitoneal abscess 2-patient with a penicillin allergy reported as abdominal pain has not had true allergy 3-patient should benefit from either CT-guided or open drainage of this abscess and the fluid should be sent for culture 4-discontinue Levaquin start the patient on cefepime 2 g every 8 hours continue with the Flagyl and Diflucan Time spent included review of his 1 week chart We will follow on clinical condition and cultures to further adjust medication if needed Thank you for this consultation we will follow the patient along with you Dictation was produced using brettapproved dictation software. please excuse any grammatical, word or spelling errors.. Time with Patient: Greater than 30
--- NOTE | 2023-08-31 23:11 | P.PN ---
Subjective Progress Note Date: 08/31/23 Patient is a 57-year-old male without significant past medical history presents to ER with complaints of abdominal pain along with nausea vomiting started 1 day prior to admission. Patient was admitted to the hospital on 08/23/2023. Apparently patient has been taking Motrin on a daily basis for his back and foot pain. Patient has been at [facility] for heroin abuse for the past 3 days. Denies any fever or chills. No chest pain or shortness of breath. CT of the abdomen pelvis on admission showed pneumoretroperitoneum with suspected gastric or duodenal perforation. Inflammatory changes identified involving the duodenum and proximal small bowel. Small bowel of ascites identified closely abdominal pelvis. Patient underwent exploratory laparotomy and repair of duodenal ulcer with modified Jesús patch on 08/23/2023. Patient is in the MedSurg unit currently. Postoperative day 6. His abdominal pain is controlled with medications. Was started on full liquid diet. Patient is also having liquid stools and passing flatus. Patient is also currently managed on TPN. Also on antibiotics Levaquin and Flagyl. Laboratory data showed WBC went up to 20.7, hemoglobin 10.0 with platelets 294 Sodium 128 potassium 4.0 chloride 98 bicarb is 24 BUN 16 creatinine 0.67 and blood sugar 117 calcium 7.1. Liver enzymes are not elevated. Repeat CT of the abdomen pelvis was ordered 08/31/2023 Patient is currently lying in the bed. Awake alert and oriented x3. On room air no complaints of chest pain or shortness of breath. Abdominal pain is better. Patient has been afebrile. No cough or sputum production. CT abdomen pelvis showed large abscess with fluid in 8 likely within the retroperitoneal region. Blood cultures and sputum cultures negative so far. Laboratory data showed WBC 20.3 hemoglobin 10.5 and platelets 344, sodium improved to 132 potassium 4.5 chloride 98 bicarb is 26 BUN 17 and creatinine 0.68 and blood sugar is 148 Serum osmolality 278, urine sodium 64 and urine osmolality 253 Patient is being continued # Patient is well and also antibiotics in the form of cefepime and also on fluconazole. Current medications reviewed. Objective - Vital Signs Vital signs: Vital Signs Temp 97.6 F 08/31/23 13:34 Pulse 95 08/31/23 13:34 Resp 20 08/31/23 13:34 BP 149/87 08/31/23 13:34 Pulse Ox 98 08/31/23 13:34 FiO2 40 08/24/23 08:52 Intake & Output 08/30/23 08/31/23 08/31/23 18:59 06:59 18:59 Intake Total 1054.5 Output Total 2360 3560 1165 Balance -2360 -2505.5 -1165 Weight 101.6 kg Intake: Intake, IV Titration 1054.5 Amount Mvi, Adult No.4 with Vit 1054.5 K 10 ml Trace (Conc-1Ml/ Dose) 1 ml Sodium Acetate 54 meq Potassium Acetate 30 meq Magnesium Sulfate gm 0.75 gm In Amino Acid 5%-D20w+Lytes*E* 1,000 ml @ 96 mls/hr IV .BY [facility]ATION [facility] Rx#: [id number] Output: Drainage 60 60 20 Anterior Abdomen 20 Right Medial Abdomen 60 60 Urine 2300 3500 1145 Other: Voiding Method Urinal Urinal # Voids 2 2 - Exam PHYSICAL EXAMINATION: Patient is lying in the bed comfortably, no acute distress, awake alert and oriented.. HEENT: Normocephalic. Neck is supple. Pupils reactive. Nostrils clear. Oral cavity is moist. Neck reveals no JVD, carotid bruits, or thyromegaly. CHEST EXAMINATION: Trachea is central. Symmetrical expansion. Bibasilar diminished sounds.. CARDIAC: Normal S1, S2 with no gallops. No murmurs ABDOMEN: Soft. Bowel sounds present. Mild tenderness at the surgical site. W ound VAC in place.. No organomegaly. No abdominal bruits. Extremities: Bilateral lower extremity edema. No clubbing or cyanosis Neurologically awake, alert, oriented x3 with well-coordinated movements. No focal deficits noted Skin: No rash or skin lesions. Psychiatric: Coperative. Nonsuicidal, anxious. Musculoskeletal: No joint swelling or deformity. - Labs CBC & Chem 7: 08/31/23 06:11 08/31/23 06:11 Labs: Abnormal Lab Results - Last 24 Hours (Table) 08/30/23 08/31/23 08/31/23 Range/Units 16:26 00:19 02:07 WBC (4.50-10.00) X 10*3/uL RBC (4.40-5.60) X 10*6/uL Hgb (13.0-17.0) d/dL Hct (39.6-50.0) % Neutrophils # (1.80-7.70) X 10*3/uL Monocytes # (0.20-1.00) X 10*3/uL Eosinophils # (0.04-0.35) X 10*3/uL Sodium (137-145) mmol/L Glucose (74-99) mg/dL POC Glucose (mg/dL) 141 H 127 H (70-110) mg/dL Osmolality (280-301) mosm/kg Calcium (8.4-10.2) mg/dL Phosphorus (2.5-4.5) mg/dL Ur Random Creatinine 17.1 L (39.0-259.0) mg/dL 08/31/23 08/31/23 08/31/23 Range/Units 06:05 06:11 06:11 WBC 20.31 H (4.50-10.00) X 10*3/uL RBC 3.57 L (4.40-5.60) X 10*6/uL Hgb 10.5 L (13.0-17.0) d/dL Hct 30.5 L (39.6-50.0) % Neutrophils # 16.00 H (1.80-7.70) X 10*3/uL Monocytes # 1.21 H (0.20-1.00) X 10*3/uL Eosinophils # 0.45 H (0.04-0.35) X 10*3/uL Sodium 132 L (137-145) mmol/L Glucose 124 H (74-99) mg/dL POC Glucose (mg/dL) 148 H (70-110) mg/dL Osmolality 278 L (280-301) mosm/kg Calcium 7.8 L (8.4-10.2) mg/dL Phosphorus 4.7 H (2.5-4.5) mg/dL Ur Random Creatinine (39.0-259.0) mg/dL 08/31/23 Range/Units 11:13 WBC (4.50-10.00) X 10*3/uL RBC (4.40-5.60) X 10*6/uL Hgb (13.0-17.0) d/dL Hct (39.6-50.0) % Neutrophils # (1.80-7.70) X 10*3/uL Monocytes # (0.20-1.00) X 10*3/uL Eosinophils # (0.04-0.35) X 10*3/uL Sodium (137-145) mmol/L Glucose (74-99) mg/dL POC Glucose (mg/dL) 148 H (70-110) mg/dL Osmolality (280-301) mosm/kg Calcium (8.4-10.2) mg/dL Phosphorus (2.5-4.5) mg/dL Ur Random Creatinine (39.0-259.0) mg/dL Assessment and Plan Assessment: Perforated duodenal ulcer in the third portion of duodenum with extensive right retroperitoneal inflammatory changes. Status post expiratory laparotomy with repair of duodenal ulcer with modified Jesús patch on 08/23/2023 Worsening leukocytosis Retroperitoneal abscess. As reported on repeat CT abdominal pelvis. Patient has been afebrile Acute hypoxic respiratory failure secondary to above. Patient was titrated down to room air currently. Hyponatremia likely due to decreased oral intake. Uncontrolled blood pressure Abuse. Patient was at [facility] rehab facility for 3 days prior to admission. Opiate abuse. GI and DVT prophylaxis. Patient is on PPI IV and also on heparin subcu. Plan: Patient will be continued on IV hydration with normal saline. Patient is also on TPN and also tolerating full liquid diet. Patient was started cefepime and Levaquin has been discontinued. Continue with Flagyl and Diflucan as per ID recommendations. added Norvasc 5 mg daily and titrate blood pressure medications as tolerated. Continue with PPI IV twice daily. Chronic pain management, incentive spirometry and encourage ambulation. Follow-up CBC and BMP tomorrow. Further recommendations based on clinical course. Time with Patient: Greater than 30
[2023-09-01 00:57] LABS: Glucose,Whole Blood 101 mg/dL (70-110)
[2023-09-01] MEDS: INSULIN ASPART (NovoLOG) 100 UNIT/ML VIAL SQ SCH ×3 (00:57→13:07)
[2023-09-01] MEDS: HYDROcodone/APAP 5-325MG 1 EACH TAB PO PRN ×5 (02:00→22:17)
[2023-09-01] MEDS: ALPRAZolam 0.25 MG TAB PO PRN ×2 (05:32→20:11)
[2023-09-01 06:13] LABS: Glucose,Whole Blood 101 mg/dL (70-110)
[2023-09-01 06:56] LABS: African American GFR (CKD) >90 (>60 ml/min/1.73 sqM); Anion Gap 6 mmol/L; Blood Urea Nitrogen 17 mg/dL (9-20); Calcium 8.1 mg/dL (8.4-10.2); Carbon Dioxide 25 mmol/L (22-30); Chloride 100 mmol/L (98-107); Glucose 107 mg/dL (74-99); Magnesium 1.9 mg/dL (1.6-2.3); Non-African American GFR(CKD) >90 (>60 ml/min/1.73 sqM); Phosphorus 4.8 mg/dL (2.5-4.5); Potassium 4.5 mmol/L (3.5-5.1); Sodium 131 mmol/L (137-145)
[2023-09-01] MEDS: PANTOPRAZOLE 40 MG/10 ML VIAL IVP SCH ×2 (08:13→22:18)
[2023-09-01] MEDS: amLODIPine 5 MG TAB PO SCH (08:13)
[2023-09-01] MEDS: CEFEPIME 2 GM in SODIUM CHLORIDE 0.9% 100 ML IVPB SCH ×4 (08:14→16:25)
[2023-09-01] MEDS: HEPARIN SODIUM,PORCINE 5,000 UNIT/ML 1 ML VIAL SQ SCH ×3 (08:14→16:29)
[2023-09-01] MEDS: metroNIDAZOLE-NS PMX 500 MG in SALINE 1 100ML.BAG IVPB SCH ×3 (08:14→16:29)
[2023-09-01] MEDS: SODIUM CHLORIDE 0.9% 1,000 ML IV SCH (08:15)
[2023-09-01] MEDS: FLUCONAZOLE IN NACL,ISO-OSM 400 MG in SALINE 1 200ML.BAG IVPB SCH (08:15)
[2023-09-01] MEDS: 1: MVI, ADULT NO.4 WITH VIT K 10 ML, TRACE (CONC-1ML/DOSE) 1 ML, PARENTERAL ELECTROLYTES IV SCH ×7 (08:34)
[2023-09-01 09:17] LABS: Basophils # (A) 0.07 X 10*3/uL (0.00-0.10); Basophils % (A) 0.4 %; Eosinophils # (A) 0.47 X 10*3/uL (0.04-0.35); Eosinophils % (A) 2.4 %; HCT 30.2 % (39.6-50.0); HGB 10.2 d/dL (13.0-17.0); Lymphocytes # (A) 1.68 X 10*3/uL (0.90-5.00); Lymphocytes % (A) 8.7 %; MCHC 33.8 d/dL (32.0-37.0); MCV 85.8 FL (80.0-97.0); Mean Platelet Volume 10.3 FL (9.5-12.2); Monocytes # (A) 1.34 X 10*3/uL (0.20-1.00); Monocytes % (A) 6.9 %; NRBC Per 100 WBC 0 X 10*3/uL (0.00-0.01); Neutrophils # (A) 15.17 X 10*3/uL (1.80-7.70); Platelet Count 420 X 10*3/uL (140-440); RBC 3.52 X 10*6/uL (4.40-5.60); RDW 14.7 % (11.5-14.5); WBC 19.42 X 10*3/uL (4.50-10.00)
--- NOTE | 2023-09-01 11:45 | P.PN ---
Subjective Progress Note Date: 09/01/23 CHIEF COMPLAINT: Perforated duodenal ulcer HISTORY OF PRESENT ILLNESS: Patient sitting at bedside chair. Patient continues to report improvement in his abdominal pain each day. Denies any nausea or vomiting. Having bowel movements. Asking for more to eat. Afebrile. WBC is down from 20 to 19. Na 131 GIOVANNA drain 25 mL serous output PHYSICAL EXAM: VITAL SIGNS: Reviewed. GENERAL: Well-developed in no acute distress. ABDOMEN: Soft. nondistended. minimal tenderness at incision site. Prevana wound vac with no suction. GIOVANNA drain serous NEUROLOGIC: Alert and oriented. Cranial nerves II through XII grossly intact. ASSESSMENT: 1. Perforated duodenal ulcer in the third portion of the duodenum with extensive right retroperitoneal inflammatory changes status post Exploratory laparotomy and Repair of duodenal ulcer with modified Jesús patch 2. Heroin abuse 3. Hyponatremia PLAN: -Reviewed computed tomography scan abdomen findings with Dr. Panchal. He did not feel that this was an abscess. Likely residual inflammation from perforated duodenal ulcer. Patient is afebrile and he is not tachycardic. His pain is improving. -Advance diet to regular -TPN discontinued -Patient can shower -Prevana wound vac to be removed today by nurse -repeat CBC in AM -Continue IV Protonix -Continue antibiotics per ID service -Continue pain management -Encouraged patient to use incentive spirometer -Encouraged patient to ambulate -DVT prophylaxis subcu heparin Physician Crm Campaign Manager note has been reviewed by physician. Signing provider agrees with the documented findings, assessment, and plan of care. Objective - Vital Signs Vital signs: Vital Signs Temp 98.0 F 09/01/23 07:37 Pulse 72 09/01/23 07:37 Resp 18 09/01/23 07:37 BP 154/88 09/01/23 07:37 Pulse Ox 97 09/01/23 07:37 FiO2 40 08/24/23 08:52 Intake & Output 08/31/23 09/01/23 09/01/23 18:59 06:59 18:59 Output Total 4065 2225 Balance -4065 -2225 Output: Drainage 20 25 Anterior Abdomen 20 Right Medial Abdomen 25 Urine 4045 2200 Other: Voiding Method Urinal # Voids 2 - Labs CBC & Chem 7: 09/01/23 06:27 09/01/23 06:27 Labs: Abnormal Lab Results - Last 24 Hours (Table) 1108/31/23 08/31/23 Range/Units 02:07 11:13 16:18 WBC (4.50-10.00) X 10*3/uL RBC (4.40-5.60) X 10*6/uL Hgb (13.0-17.0) d/dL Hct (39.6-50.0) % RDW (11.5-14.5) % Neutrophils # (1.80-7.70) X 10*3/uL Monocytes # (0.20-1.00) X 10*3/uL Eosinophils # (0.04-0.35) X 10*3/uL Sodium (137-145) mmol/L Glucose (74-99) mg/dL POC Glucose (mg/dL) 148 H 133 H (70-110) mg/dL Calcium (8.4-10.2) mg/dL Phosphorus (2.5-4.5) mg/dL Ur Random Creatinine 17.1 L (39.0-259.0) mg/dL 08/31/23 09/01/23 09/01/23 Range/Units 21:13 06:27 06:27 WBC 19.42 H (4.50-10.00) X 10*3/uL RBC 3.52 L (4.40-5.60) X 10*6/uL Hgb 10.2 L (13.0-17.0) d/dL Hct 30.2 L (39.6-50.0) % RDW 14.7 H (11.5-14.5) % Neutrophils # 15.17 H (1.80-7.70) X 10*3/uL Monocytes # 1.34 H (0.20-1.00) X 10*3/uL Eosinophils # 0.47 H (0.04-0.35) X 10*3/uL Sodium 131 L (137-145) mmol/L Glucose 107 H (74-99) mg/dL POC Glucose (mg/dL) 123 H (70-110) mg/dL Calcium 8.1 L (8.4-10.2) mg/dL Phosphorus 4.8 H (2.5-4.5) mg/dL Ur Random Creatinine (39.0-259.0) mg/dL
--- NOTE | 2023-09-01 12:50 | P.PN ---
Subjective Progress Note Date: 09/01/23 Principal diagnosis: Abdominal CT question of retroperitoneal abscess Patient is a 57-year-old male with a past medical history significant for opiate and drug use in the past presenting to the hospital for evaluation of abdominal pain and nausea and vomiting, patient did have a CT abdominal pelvis that evidence of pneumoperitoneum status post laparotomy and repair of perforated duodenal ulcer subsequently worsening white count and a CT showing large right retroperitoneal abscess. On today's evaluation that is 09/01/2023, the patient remains to be afebrile, the patient is breathing comfortably on room air and denies any shortness of breath, the patient denies any chest pain or cough , patient denies abdominal pain and no nausea/vomiting or diarrhea Patient white count was mildly down to 19.42, creatinine 0.75 Objective - Vital Signs Vital signs: Vital Signs Temp 98.0 F 09/01/23 07:37 Pulse 72 09/01/23 07:37 Resp 18 09/01/23 07:37 BP 154/88 09/01/23 07:37 Pulse Ox 97 09/01/23 07:37 FiO2 40 08/24/23 08:52 Intake & Output 08/31/23 09/01/23 09/01/23 18:59 06:59 18:59 Output Total 4065 2225 Balance -4065 -2225 Output: Drainage 20 25 Anterior Abdomen 20 Right Medial Abdomen 25 Urine 4045 2200 Other: Voiding Method Urinal # Voids 2 - Exam GENERAL DESCRIPTION: A middle-age male up in the chair in no distress RESPIRATORY SYSTEM: Unlabored breathing , clear to auscultation anteriorly HEART: S1 S2 regular rate and rhythm , ABDOMEN: Soft , no tenderness EXTREMITIES: No edema feet - Labs CBC & Chem 7: 09/01/23 06:27 09/01/23 06:27 Labs: Abnormal Lab Results - Last 24 Hours (Table) 08/31/23 08/31/23 09/01/23 Range/Units 16:18 21:13 06:27 WBC 19.42 H (4.50-10.00) X 10*3/uL RBC 3.52 L (4.40-5.60) X 10*6/uL Hgb 10.2 L (13.0-17.0) d/dL Hct 30.2 L (39.6-50.0) % RDW 14.7 H (11.5-14.5) % Neutrophils # 15.17 H (1.80-7.70) X 10*3/uL Monocytes # 1.34 H (0.20-1.00) X 10*3/uL Eosinophils # 0.47 H (0.04-0.35) X 10*3/uL Sodium (137-145) mmol/L Glucose (74-99) mg/dL POC Glucose (mg/dL) 133 H 123 H (70-110) mg/dL Calcium (8.4-10.2) mg/dL Phosphorus (2.5-4.5) mg/dL 09/01/23 Range/Units 06:27 WBC (4.50-10.00) X 10*3/uL RBC (4.40-5.60) X 10*6/uL Hgb (13.0-17.0) d/dL Hct (39.6-50.0) % RDW (11.5-14.5) % Neutrophils # (1.80-7.70) X 10*3/uL Monocytes # (0.20-1.00) X 10*3/uL Eosinophils # (0.04-0.35) X 10*3/uL Sodium 131 L (137-145) mmol/L Glucose 107 H (74-99) mg/dL POC Glucose (mg/dL) (70-110) mg/dL Calcium 8.1 L (8.4-10.2) mg/dL Phosphorus 4.8 H (2.5-4.5) mg/dL Assessment and Plan (1) Retroperitoneal abscess Current Visit: Yes Status: Acute Code(s): K68.19 - OTHER RETROPERITONEAL ABSCESS SNOMED Code(s): 97721613 Plan: 1patient presented to hospital about a week ago in this patient with abdominal pain found to have perforated duodenal ulcer status post laparotomy and modified Jesús patch now with evidence of worsening white count and the CT showing a large retroperitoneal abscess 2-patient with a penicillin allergy reported as abdominal pain has not had true allergy 3-patient will benefit from either CT-guided drainage of this abscess and the fluid should be sent for culture 4- patient to continue with cefepime 2 g every 8 hours Flagyl and Diflucan Dictation was produced using [employer] dictation software. please excuse any grammatical, word or spelling errors.. Time with Patient: Less than 30
[2023-09-01 21:09] LABS: Glucose,Whole Blood 148 mg/dL (70-110)
[2023-09-01] MEDS: MELATONIN 3 MG TABLET PO SCH (22:18)
[2023-09-02] MEDS: metroNIDAZOLE-NS PMX 500 MG in SALINE 1 100ML.BAG IVPB SCH ×3 (00:18→16:58)
[2023-09-02] MEDS: HEPARIN SODIUM,PORCINE 5,000 UNIT/ML 1 ML VIAL SQ SCH ×4 (00:18→23:59)
[2023-09-02] MEDS: CEFEPIME 2 GM in SODIUM CHLORIDE 0.9% 100 ML IVPB SCH ×3 (00:18→16:57)
[2023-09-02] MEDS: SODIUM CHLORIDE 0.9% 1,000 ML IV SCH ×2 (00:27→21:43)
[2023-09-02] MEDS: HYDROcodone/APAP 5-325MG 1 EACH TAB PO PRN ×4 (02:16→21:21)
[2023-09-02 07:47] LABS: African American GFR (CKD) >90 (>60 ml/min/1.73 sqM); Anion Gap 8 mmol/L; Blood Urea Nitrogen 17 mg/dL (9-20); Calcium 8.1 mg/dL (8.4-10.2); Carbon Dioxide 23 mmol/L (22-30); Chloride 101 mmol/L (98-107); Glucose 138 mg/dL (74-99); Magnesium 1.9 mg/dL (1.6-2.3); Non-African American GFR(CKD) >90 (>60 ml/min/1.73 sqM); Phosphorus 3.7 mg/dL (2.5-4.5); Potassium 4.5 mmol/L (3.5-5.1); Sodium 132 mmol/L (137-145)
[2023-09-02] MEDS: amLODIPine 5 MG TAB PO SCH (08:34)
[2023-09-02] MEDS: PANTOPRAZOLE 40 MG/10 ML VIAL IVP SCH ×2 (08:34→21:22)
[2023-09-02] MEDS: FLUCONAZOLE IN NACL,ISO-OSM 400 MG in SALINE 1 200ML.BAG IVPB SCH (08:35)
[2023-09-02] MEDS: ALPRAZolam 0.25 MG TAB PO PRN (11:44)
[2023-09-02 11:47] LABS: Basophils % (A) 0.6 %; Eosinophils # (A) 0.44 X 10*3/uL (0.04-0.35); Eosinophils % (A) 2.4 %; HCT 31.3 % (39.6-50.0); HGB 10.3 g/dL (13.0-17.0); Lymphocytes # (A) 1.77 X 10*3/uL (0.90-5.00); Lymphocytes % (A) 9.8 %; MCH 29.1 pg (27.0-32.0); MCHC 32.9 g/dL (32.0-37.0); MCV 88.4 FL (80.0-97.0); Mean Platelet Volume 10.3 FL (9.5-12.2); Monocytes % (A) 6.1 %; NRBC Per 100 WBC 0 X 10*3/uL (0.00-0.01); Neutrophils # (A) 14.17 X 10*3/uL (1.80-7.70); Neutrophils % (A) 78.9 %; Platelet Count 519 X 10*3/uL (140-440); RBC 3.54 X 10*6/uL (4.40-5.60); RDW 14.8 % (11.5-14.5); WBC 17.97 X 10*3/uL (4.50-10.00)
--- NOTE | 2023-09-02 12:57 | P.PN ---
Subjective Progress Note Date: 09/02/23 CHIEF COMPLAINT: Perforated duodenal ulcer HISTORY OF PRESENT ILLNESS: Patient sitting at bedside chair. He reports his pain is controlled. He is having bowel movements. Tolerating regular diet. Afebrile. WBC is down from 19-17.97 na 132 cr 0.82. GIOVANNA drain 60ml serous output PHYSICAL EXAM: VITAL SIGNS: Reviewed. GENERAL: Well-developed in no acute distress. ABDOMEN: Soft. nondistended. minimal tenderness at incision site. Incision clean dry and intact. GIOVANNA drain serous NEUROLOGIC: Alert and oriented. Cranial nerves II through XII grossly intact. ASSESSMENT: 1. Perforated duodenal ulcer in the third portion of the duodenum with extensive right retroperitoneal inflammatory changes status post Exploratory laparotomy and Repair of duodenal ulcer with modified Jesús patch 2. Heroin abuse 3. Hyponatremia PLAN: -Reviewed computed tomography scan abdomen findings from 08/30/[address] Panchal. He did not feel that this was an abscess. Likely residual inflammation from perforated duodenal ulcer. Patient is afebrile and he is not tachycardic. His pain is improving. -Continue Regular diet -TPN discontinued -Patient can shower -repeat CBC in AM -Continue IV Protonix -Continue antibiotics per ID service -Continue pain management -Encouraged patient to use incentive spirometer -Encouraged patient to ambulate -DVT prophylaxis subcu heparin Physician Charging Car Operator note has been reviewed by physician. Signing provider agrees with the documented findings, assessment, and plan of care. Objective - Vital Signs Vital signs: Vital Signs Temp 98.1 F 09/02/23 07:39 Pulse 82 09/02/23 07:39 Resp 20 09/02/23 07:39 BP 151/94 09/02/23 07:39 Pulse Ox 97 09/02/23 07:39 FiO2 40 08/24/23 08:52 Intake & Output 09/01/23 09/02/23 09/02/23 18:59 06:59 18:59 Output Total 20 60 Balance -20 -60 Weight 101.6 kg Output: Drainage 20 60 Right Medial Abdomen 20 60 Other: Voiding Method Urinal # Voids 3 # Bowel Movements 1 - Labs CBC & Chem 7: 09/02/23 06:59 09/02/23 06:59 Labs: Abnormal Lab Results - Last 24 Hours (Table) 09/01/23 09/02/23 Range/Units 21:08 06:59 Sodium 132 L (137-145) mmol/L Glucose 138 H (74-99) mg/dL POC Glucose (mg/dL) 148 H (70-110) mg/dL Calcium 8.1 L (8.4-10.2) mg/dL
--- NOTE | 2023-09-02 13:09 | P.PN ---
Subjective Progress Note Date: 09/02/23 Principal diagnosis: Abdominal CT question of retroperitoneal abscess Patient is a 57-year-old male with a past medical history significant for opiate and drug use in the past presenting to the hospital for evaluation of abdominal pain and nausea and vomiting, patient did have a CT abdominal pelvis that evidence of pneumoperitoneum status post laparotomy and repair of perforated duodenal ulcer subsequently worsening white count and a CT showing large right retroperitoneal abscess. On today's evaluation that is 09/02/2023, the patient denies any fever or any chills, the patient is breathing comfortably on room air and no need for supplemental oxygen, the patient denies any chest pain, cough or sputum production, patient denies abdominal pain and no nausea/vomiting and no diarrhea has been reported Patient white count is slightly down to 17.97, creatinine 0.82 Objective - Vital Signs Vital signs: Vital Signs Temp 98.1 F 09/02/23 07:39 Pulse 82 09/02/23 07:39 Resp 20 09/02/23 07:39 BP 151/94 09/02/23 07:39 Pulse Ox 97 09/02/23 07:39 FiO2 40 08/24/23 08:52 Intake & Output 09/01/23 09/02/23 09/02/23 18:59 06:59 18:59 Output Total 20 60 Balance -20 -60 Weight 101.6 kg Output: Drainage 20 60 Right Medial Abdomen 20 60 Other: Voiding Method Urinal # Voids 3 # Bowel Movements 1 - Exam GENERAL DESCRIPTION: A middle-age male up in the chair in no distress RESPIRATORY SYSTEM: Unlabored breathing , clear to auscultation anteriorly HEART: S1 S2 regular rate and rhythm , ABDOMEN: Soft , no tenderness EXTREMITIES: No edema feet - Labs CBC & Chem 7: 09/02/23 06:59 09/02/23 06:59 Labs: Abnormal Lab Results - Last 24 Hours (Table) 09/01/23 09/02/23 09/02/23 Range/Units 21:08 06:59 06:59 WBC 17.97 H (4.50-10.00) X 10*3/uL RBC 3.54 L (4.40-5.60) X 10*6/uL Hgb 10.3 L (13.0-17.0) g/dL Hct 31.3 L (39.6-50.0) % RDW 14.8 H (11.5-14.5) % Plt Count 519 H (140-440) X 10*3/uL Neutrophils # 14.17 H (1.80-7.70) X 10*3/uL Monocytes # 1.10 H (0.20-1.00) X 10*3/uL Eosinophils # 0.44 H (0.04-0.35) X 10*3/uL Sodium 132 L (137-145) mmol/L Glucose 138 H (74-99) mg/dL POC Glucose (mg/dL) 148 H (70-110) mg/dL Calcium 8.1 L (8.4-10.2) mg/dL Assessment and Plan (1) Retroperitoneal abscess Current Visit: Yes Status: Acute Code(s): K68.19 - OTHER RETROPERITONEAL ABSCESS SNOMED Code(s): 65330928 Plan: 1patient presented to hospital about a week ago in this patient with abdominal pain found to have perforated duodenal ulcer status post laparotomy and modified Jesús patch now with evidence of worsening white count and the CT showing a large retroperitoneal abscess 2-patient with a penicillin allergy reported as abdominal pain has not had true allergy 3-patient CT has been reviewed by the surgeon did not look like an abscess and not recommending any drainage 4- patient to continue with cefepime 2 g every 8 hours Flagyl and Diflucan and will consider short course of oral antibiotics on discharge Dictation was produced using [employer] dictation software. please excuse any grammatical, word or spelling errors.. Time with Patient: Less than 30
[2023-09-02 20:23] VITALS: RESP 20
--- NOTE | 2023-09-02 20:28 | P.PN ---
Subjective Progress Note Date: 09/02/23 Patient is a 57-year-old male without significant past medical history presents to ER with complaints of abdominal pain along with nausea vomiting started 1 day prior to admission. Patient was admitted to the hospital on 08/23/2023. Apparently patient has been taking Motrin on a daily basis for his back and foot pain. Patient has been at [facility] for heroin abuse for the past 3 days. Denies any fever or chills. No chest pain or shortness of breath. CT of the abdomen pelvis on admission showed pneumoretroperitoneum with suspected gastric or duodenal perforation. Inflammatory changes identified involving the duodenum and proximal small bowel. Small bowel of ascites identified closely abdominal pelvis. Patient underwent exploratory laparotomy and repair of duodenal ulcer with modified Jesús patch on 08/23/2023. Patient is in the MedSurg unit currently. Postoperative day 6. His abdominal pain is controlled with medications. Was started on full liquid diet. Patient is also having liquid stools and passing flatus. Patient is also currently managed on TPN. Also on antibiotics Levaquin and Flagyl. Laboratory data showed WBC went up to 20.7, hemoglobin 10.0 with platelets 294 Sodium 128 potassium 4.0 chloride 98 bicarb is 24 BUN 16 creatinine 0.67 and blood sugar 117 calcium 7.1. Liver enzymes are not elevated. Repeat CT of the abdomen pelvis was ordered 08/31/2023 Patient is currently lying in the bed. Awake alert and oriented x3. On room air no complaints of chest pain or shortness of breath. Abdominal pain is better. Patient has been afebrile. No cough or sputum production. CT abdomen pelvis showed large abscess with fluid in 8 likely within the retroperitoneal region. Blood cultures and sputum cultures negative so far. Laboratory data showed WBC 20.3 hemoglobin 10.5 and platelets 344, sodium improved to 132 potassium 4.5 chloride 98 bicarb is 26 BUN 17 and creatinine 0.68 and blood sugar is 148 Serum osmolality 278, urine sodium 64 and urine osmolality 253 Patient is being continued # Patient is well and also antibiotics in the form of cefepime and also on fluconazole. 09/02/2023 Patient is seen in follow-up today with infectious disease following maintained on antibiotics and general surgery with follow-up white count is trending down. Patient remains afebrile reports his pain is currently controlled. Patient is having bowel movements with no worsening pain noted. Patient did undergo repeat CT abdomen with concerns of possible abscess although surgeon does not feel this is an abscess recommend to continue on IV antibiotics and close monitoring. Patient denies nausea or vomiting and is tolerating diet. Patient has been encouraged to increase activity as tolerated. Continue incentive spirometer use as well.Review of systems: Review of systems: Constitutional: No reports of fatigue, fever, or chills Cardiovascular: No reports of chest pain or palpitations Respiratory: No reports of shortness of breath or cough GI: No reports of nausea, vomiting, or diarrhea him on no reports of worsening abdominal pain : No reports of dysuria or retention Neurovascular: No reports of weakness or numbness All medications have been reviewed Physical exam: Patient is sitting up in the chair, no acute distress, awake alert and orie nted.. Well-developed, well-nourished, obese HEENT: Normocephalic. Neck is supple. Pupils reactive. Nostrils clear. Oral cavity is moist. Neck reveals no JVD, carotid bruits, or thyromegaly. CHEST EXAMINATION: Trachea is central. Symmetrical expansion. Bibasilar diminished sounds.. CARDIAC: Normal S1, S2 with no gallops. No murmurs ABDOMEN: Soft. Bowel sounds present. Mild tenderness at the surgical site. No organomegaly. No abdominal bruits. Extremities: Bilateral lower extremity edema. No clubbing or cyanosis Neurologically awake, alert, oriented x3 with well-coordinated movements. No focal deficits noted Skin: No rash or skin lesions. Psychiatric: Cooperative. Nonsuicidal, less anxious. Musculoskeletal: No joint swelling or deformity. Assessment: Perforated duodenal ulcer in the third portion of duodenum with extensive right retroperitoneal inflammatory changes. Status post expiratory laparotomy with repair of duodenal ulcer with modified Jesús patch on 08/23/2023 Worsening leukocytosis trending down Retroperitoneal abscess. As reported on repeat CT abdominal pelvis. Patient has been afebrile, per general surgery does not feel is an abscess Acute hypoxic respiratory failure secondary to above. Patient was titrated down to room air currently. Hyponatremia likely due to decreased oral intake. Uncontrolled blood pressure Opiate abuse. [facility] to [facility]. GI and DVT prophylaxis. Patient is on PPI IV and also on heparin subcu. Full code Plan: Patient will be continued on IV hydration with normal saline. Patient is tolerating full liquid diet. Diet being advanced per surgery Patient continues on cefepime. Continue with Flagyl and Diflucan as per ID recommendations. Continue with PPI IV twice daily. Chronic pain management, incentive spirometry and encourage ambulation. Follow-up CBC and BMP tomorrow.White count is trending down Further recommendations based on clinical course. We will continue to follow a general surgery during hospitalization. Thank you kindly for this consultation. The impression and plan of care has been dictated by Anali Loaiza, Nurse Practitioner as directed. Dr. Priscilla MD I have performed a history and examination and MDM of this patient, discussed the same with the dictator, and agree with the dictator's assessment and plan as written ,documented as a scribe. Based on total visit time, I have performed more than 50% of the visit. Objective - Vital Signs Vital signs: Vital Signs Temp 98.7 F 09/02/23 20:00 Pulse 84 09/02/23 20:00 Resp 20 09/02/23 20:00 BP 142/82 09/02/23 20:00 Pulse Ox 96 09/02/23 20:00 FiO2 40 08/24/23 08:52 Intake & Output 09/02/23 09/02/23 09/03/23 06:59 18:59 06:59 Output Total 60 50 Balance -60 -50 Output: Drainage 60 50 Right Medial Abdomen 60 50 Other: Voiding Method Urinal # Voids 2 # Bowel Movements 1 - Labs CBC & Chem 7: 09/02/23 06:59 09/02/23 06:59 Labs: Abnormal Lab Results - Last 24 Hours (Table) 09/01/23 09/02/23 09/02/23 Range/Units 21:08 06:59 06:59 WBC 17.97 H (4.50-10.00) X 10*3/uL RBC 3.54 L (4.40-5.60) X 10*6/uL Hgb 10.3 L (13.0-17.0) g/dL Hct 31.3 L (39.6-50.0) % RDW 14.8 H (11.5-14.5) % Plt Count 519 H (140-440) X 10*3/uL Neutrophils # 14.17 H (1.80-7.70) X 10*3/uL Monocytes # 1.10 H (0.20-1.00) X 10*3/uL Eosinophils # 0.44 H (0.04-0.35) X 10*3/uL Sodium 132 L (137-145) mmol/L Glucose 138 H (74-99) mg/dL POC Glucose (mg/dL) 148 H (70-110) mg/dL Calcium 8.1 L (8.4-10.2) mg/dL
[2023-09-02] MEDS: MELATONIN 3 MG TABLET PO SCH (21:22)
[2023-09-03] MEDS: SODIUM CHLORIDE 0.9% 1,000 ML IV SCH (01:07)
[2023-09-03] MEDS: metroNIDAZOLE-NS PMX 500 MG in SALINE 1 100ML.BAG IVPB SCH ×2 (08:06)
[2023-09-03] MEDS: amLODIPine 5 MG TAB PO SCH (08:06)
[2023-09-03] MEDS: ALPRAZolam 0.25 MG TAB PO PRN ×2 (08:06)
[2023-09-03] MEDS: HEPARIN SODIUM,PORCINE 5,000 UNIT/ML 1 ML VIAL SQ SCH (08:06)
[2023-09-03] MEDS: CEFEPIME 2 GM in SODIUM CHLORIDE 0.9% 100 ML IVPB SCH ×3 (08:07)
[2023-09-03] MEDS: PANTOPRAZOLE 40 MG/10 ML VIAL IVP SCH (08:07)
[2023-09-03] MEDS: FLUCONAZOLE IN NACL,ISO-OSM 400 MG in SALINE 1 200ML.BAG IVPB SCH (08:07)
[2023-09-03 09:37] VITALS: BP 146/78; PULSE 83; TEMP 97.9
[2023-09-03 11:09] LABS: Basophils # (A) 0.06 X 10*3/uL (0.00-0.10); Basophils % (A) 0.4 %; Eosinophils % (A) 2.5 %; HGB 10.7 g/dL (13.0-17.0); Lymphocytes % (A) 11.7 %; MCH 29.3 pg (27.0-32.0); MCHC 33.4 g/dL (32.0-37.0); MCV 87.7 FL (80.0-97.0); Mean Platelet Volume 9.7 FL (9.5-12.2); Monocytes # (A) 1.14 X 10*3/uL (0.20-1.00); NRBC Per 100 WBC 0 X 10*3/uL (0.00-0.01); Neutrophils % (A) 76.2 %; Platelet Count 608 X 10*3/uL (140-440); RBC 3.65 X 10*6/uL (4.40-5.60); RDW 14.9 % (11.5-14.5); WBC 16.25 X 10*3/uL (4.50-10.00)
[2023-09-03 11:15] LABS: BUN/Creat Ratio 17.78 Ratio (12.00-20.00); Calcium 8.6 mg/dL (8.7-10.3); Carbon Dioxide 26.6 mmol/L (21.6-31.8); Chloride 102 mmol/L (96-109); Glucose 105 mg/dL (70-110); Magnesium 1.9 mg/dL (1.5-2.4); Potassium 5.1 mmol/L (3.5-5.5); Sodium 137 mmol/L (135-145)
--- NOTE | 2023-09-03 11:25 | P.DS ---
Providers Date of admission: 08/23/23 09:33 Expected date of discharge: 09/03/23 Attending physician: Ventura Panchal Consults: 08/23/23 13:00 Consult Physician Routine Consulting Provider: Sera Fernandez Consult Reason/Comments: ICU management Do you want consulting provider notified?: Yes 08/30/23 12:33 Consult Physician Routine Consulting Provider: Cindy Wells Consult Reason/Comments: medical management Do you want consulting provider notified?: Yes 08/31/23 00:53 Consult Physician Routine Consulting Provider: Abhilash James Consult Reason/Comments: Retroperitoneal abscess Do you want consulting provider notified?: Yes, Notify in am Primary care physician: Stated None Hospital Course: Discharge diagnosis 1. Perforated duodenal ulcer in the third portion of the duodenum with extensive right retroperitoneal inflammatory changes status post Exploratory laparotomy and Repair of duodenal ulcer with modified Jesús patch 2. Heroin abuse 3. Reviewed computed tomography scan abdomen findings from 08/30/[address] Panchal. He did not feel that this was an abscess. Likely residual inflammation from perforated duodenal ulcer. Hospital course This is a 57-year-old male who presented to the hospital with complaints of abdominal pain with nausea and vomiting. Computed tomography sPatient is status postcan abdomen and pelvis had reported pneumoperitoneum with suspected gastric or duodenal perforation. Exploratory laparotomy and Repair of duodenal ulcer with modified Jesús patch for Perforated duodenal ulcer. Patient reports pain is controlled. He is tolerating diet. He is having bowel movements. He is ambulating. He is afebrile. Incision sites clean dry and intact. He is stable for discharge. He is being discharged with antibiotics. Please refer to chart for any further details. Physician Care Professional note has been reviewed by physician. Signing provider agrees with the documented findings, assessment, and plan of care. Patient Condition at Discharge: Stable Plan - Discharge Summary New Discharge Prescriptions: New amLODIPine [Norvasc] 5 mg PO DAILY #30 tab cefUROXime axetiL [Ceftin] 500 mg PO BID 10 Days #20 tab Fluconazole [Diflucan] 200 mg PO DAILY #10 tablet metroNIDAZOLE [Flagyl] 500 mg PO TID 10 Days #30 tab HYDROcodone/APAP 5-325MG [O'Neals 5-325] 1 tab PO Q8HR PRN 2 Days #5 tab PRN Reason: Pain Pantoprazole [Protonix] 40 mg PO DAILY #30 tab Ibuprofen [Motrin] 600 mg PO Q8HR PRN #30 tab PRN Reason: Pain Continue Melatonin 5 mg PO HS Chlorpheniramine Maleate [Chlor-Trimeton] 4 mg PO Q4H PRN MDD 4 doses PRN Reason: Allergy Symptoms Thiamine [Vitamin B-1] 100 mg PO DAILY PRN PRN Reason: supplement Acetaminophen Tab [Tylenol] 650 mg PO QID PRN MDD 4 doses PRN Reason: Pain Multivitamins, Thera [Multivitamin (formulary)] 1 tab PO DAILY Ibuprofen [Motrin Ib] 600 mg PO Q6H PRN PRN Reason: Pain Loperamide [Imodium] 2 - 4 mg PO QID PRN MDD 4 doses PRN Reason: Diarrhea Calcium/Mag/Zinc/D3 1 tab PO TID Mylanta 30 ml PO Q4H PRN PRN Reason: antacid Discontinued cloNIDine HCL [Catapres] 0.1 mg PO Q4H PRN PRN Reason: Anxiety cloNIDine HCL [Catapres] 0.1 - 0.3 mg PO Q4HR PRN PRN Reason: Hypertension Discharge Medication List Acetaminophen Tab [Tylenol] 650 mg PO QID PRN MDD 4 doses 08/23/23 [History] Calcium/Mag/Zinc/D3 1 tab PO TID 08/23/23 [History] Chlorpheniramine Maleate [Chlor-Trimeton] 4 mg PO Q4H PRN MDD 4 doses 08/23/23 [History] Ibuprofen [Motrin Ib] 600 mg PO Q6H PRN 08/23/23 [History] Loperamide [Imodium] 2 - 4 mg PO QID PRN MDD 4 doses 08/23/23 [History] Melatonin 5 mg PO HS 08/23/23 [History] Multivitamins, Thera [Multivitamin (formulary)] 1 tab PO DAILY 08/23/23 [History] Mylanta 30 ml PO Q4H PRN 08/23/23 [History] Thiamine [Vitamin B-1] 100 mg PO DAILY PRN 08/23/23 [History] Fluconazole [Diflucan] 200 mg PO DAILY #10 tablet 09/03/23 [Rx] HYDROcodone/APAP 5-325MG [O'Neals 5-325] 1 tab PO Q8HR PRN 2 Days #5 tab 09/03/23 [Rx] Ibuprofen [Motrin] 600 mg PO Q8HR PRN #30 tab 09/03/23 [Rx] Pantoprazole [Protonix] 40 mg PO DAILY #30 tab 09/03/23 [Rx] amLODIPine [Norvasc] 5 mg PO DAILY #30 tab 09/03/23 [Rx] cefUROXime axetiL [Ceftin] 500 mg PO BID 10 Days #20 tab 09/03/23 [Rx] metroNIDAZOLE [Flagyl] 500 mg PO TID 10 Days #30 tab 09/03/23 [Rx] Follow up Appointment(s)/Referral(s): None,Stated [Primary Care Provider] - 1-2 days Ventura Panchal MD [STAFF PHYSICIAN] - 1 Week Activity/Diet/Wound Care/Special Instructions: No driving while taking [place] No lifting over 10 pounds Shower daily. No soaking or tub baths for 2 weeks Very light activity until you are reevaluated at your follow up appointment with your surgeon Keep a log of GIOVANNA drain output and bring with you to your follow-up appointment Milk/strip drains 2-3 times a day Discharge Disposition: HOME WITH HOME HEALTH SERVICES
[2023-09-03] MEDS: HYDROcodone/APAP 5-325MG 1 EACH TAB PO PRN (14:19)
--- NOTE | 2023-09-03 15:42 | P.PN ---
Subjective Progress Note Date: 09/03/23 Principal diagnosis: Abdominal CT question of retroperitoneal abscess Patient is a 57-year-old male with a past medical history significant for opiate and drug use in the past presenting to the hospital for evaluation of abdominal pain and nausea and vomiting, patient did have a CT abdominal pelvis that evidence of pneumoperitoneum status post laparotomy and repair of perforated duodenal ulcer subsequently worsening white count and a CT suspicious for large right retroperitoneal abscess. On today's evaluation that is 09/03/2023, the patient remains to be afebrile, the patient is breathing comfortably on room air , the patient denies any chest pain or any cough , patient denies nausea/vomiting diarrhea and no abdominal pain Patient white count is down to 16.25, and creatinine 0.9 Objective - Vital Signs Vital signs: Vital Signs Temp 97.9 F 09/03/23 08:04 Pulse 83 09/03/23 08:04 Resp 20 09/03/23 08:04 BP 146/78 09/03/23 08:04 Pulse Ox 98 09/03/23 08:04 FiO2 40 08/24/23 08:52 Intake & Output 09/02/23 09/03/23 09/03/23 18:59 06:59 18:59 Output Total 80 Balance -80 Output: Drainage 80 Right Medial Abdomen 80 Other: # Voids 2 2 - Exam GENERAL DESCRIPTION: A middle-age male up in the chair in no distress RESPIRATORY SYSTEM: Unlabored breathing , clear to auscultation anteriorly HEART: S1 S2 regular rate and rhythm , ABDOMEN: Soft , no tenderness EXTREMITIES: No edema feet - Labs CBC & Chem 7: 09/03/23 07:14 09/03/23 07:14 Labs: Abnormal Lab Results - Last 24 Hours (Table) 09/02/23 Range/Units 06:59 WBC 17.97 H (4.50-10.00) X 10*3/uL RBC 3.54 L (4.40-5.60) X 10*6/uL Hgb 10.3 L (13.0-17.0) g/dL Hct 31.3 L (39.6-50.0) % RDW 14.8 H (11.5-14.5) % Plt Count 519 H (140-440) X 10*3/uL Neutrophils # 14.17 H (1.80-7.70) X 10*3/uL Monocytes # 1.10 H (0.20-1.00) X 10*3/uL Eosinophils # 0.44 H (0.04-0.35) X 10*3/uL Assessment and Plan (1) Retroperitoneal abscess Status: Acute Code(s): K68.19 - OTHER RETROPERITONEAL ABSCESS SNOMED Code(s): 63337154 Plan: 1patient presented to hospital about a week ago in this patient with abdominal pain found to have perforated duodenal ulcer status post laparotomy and modified Jesús patch now with evidence of worsening white count and the CT was suspicious for large retroperitoneal abscess, patient CT has been reviewed by the surgeon did not look like an abscess , patient is clinically not behaving as such within no fever does not look toxic and the patient white count is trending down 2patient has been cleared for discharge by surgery plan is for a 10 day course of oral Ceftin, Flagyl and Diflucan and close outpatient follow-up patient has been advised if he develops any fever or any worsening abdominal or back pain that he needs to come to the hospital right away Dictation was produced using [employer] dictation software. please excuse any grammatical, word or spelling errors.. Time with Patient: Less than 30
== END 2023-09-03 15:14 | disposition home or self-care (01) | DRG 223 ==
LOC: EC 06:14 → 3SCARD 09:33 → 2SICU 12:24 → 3SCARD 08-27 22:23 → 4SSUR 08-29 17:51
PROVIDERS: ADMIT Surgery; ATTEND Surgery
PROC: 0D9670Z Drainage of Stomach with Drainage Device, Via Natural or Artificial Opening (ICD-10-PCS; 2023-08-23)
PROC: 0DU907Z Supplement Duodenum with Autologous Tissue Substitute, Open Approach (ICD-10-PCS; principal; 2023-08-23 14:05)
PROC: 02HV33Z Insertion of Infusion Device into Superior Vena Cava, Percutaneous Approach (ICD-10-PCS; 2023-08-24)
PROC: 3E0436Z Introduction of Nutritional Substance into Central Vein, Percutaneous Approach (ICD-10-PCS; 2023-08-24)
DX: K26.5 Chronic or unspecified duodenal ulcer with perforation (principal); J96.01 Acute respiratory failure with hypoxia; E87.20 Acidosis, unspecified; R18.8 Other ascites; E87.1 Hypo-osmolality and hyponatremia; I95.9 Hypotension, unspecified; F11.10 Opioid abuse, uncomplicated; I10 Essential (primary) hypertension; F41.9 Anxiety disorder, unspecified; M54.9 Dorsalgia, unspecified; M79.673 Pain in unspecified foot; Z79.899 Other long term (current) drug therapy; Z88.0 Allergy status to penicillin
CPT/HCPCS: 36415; 36573; 36600; 71045; 74177; 80048; 80053; 81001; 82040; 82330; 82570; 82805; 83036; 83605; 83690; 83735; 83930; 83935; 84100; 84132; 84156; 84300; 84478; 85025; 85610; 85730; 87040; 87070; 87205; 94002; 94003; 94760; 96361; 96374; 96375; 99291